=== PATIENT | male | born 1935 | race Caucasian/White ===

== ENCOUNTER 2020-10-21 09:00 | Emergency (ER) | payer OTHER, SELFPAY ==
[2020-10-21 09:06] VITALS: BP 127/72; PULSE 86; O2SAT 96
[2020-10-21 09:08] VITALS: BP 149/81; PULSE 70; RESP 18; TEMP 36.6; O2SAT 100; BMI 37.5
--- NOTE | 2020-10-21 09:16 | ED_ITS ---
HPI - Skin/Abscess/Foreign Bdy General Chief complaint: Skin/Abscess/Foreign Body Stated complaint: infected skin tag Time Seen by Provider: 10/21/20 09:16 Source: patient, family and EMS Mode of arrival: EMS Limitations: other (poor historian ) History of Present Illness complaint: lesion Onset (ago): year(s) Tetanus up to date: yes Location: neck (right ) Severity: moderate Relieving factors: none Exacerbating factors: none Context: other (hx of chronic skin tag that he refused surgery for his son used to manage it until he this week so no one was able to care for it, his family noticed it was getting red and told him to get it checked out) Associated symptoms: denies other symptoms Treatments prior to arrival: none Related Data Home Medications Medication Instructions Recorded Confirmed buspirone 5 mg PO BID 10/21/20 10/21/20 clonidine HCl 0.4 mg PO BID 10/21/20 10/21/20 finasteride 5 mg PO DAILY 10/21/20 10/21/20 furosemide 40 mg PO DAILY 10/21/20 10/21/20 lisinopril 40 mg tablet 40 mg PO DAILY 10/21/20 10/21/20 metoprolol tartrate 25 mg PO BID 10/21/20 10/21/20 sertraline 50 mg tablet 25 mg PO 2XW 10/21/20 10/21/20 simvastatin 10 mg PO DAILY 10/21/20 10/21/20 terazosin 1 mg PO DAILY 10/21/20 10/21/20 Allergies Allergy/AdvReac Type Severity Reaction Status Date / Time terazosin Allergy Unknown Unknown Verified 10/21/20 09:14 Review of Systems Review of Systems: Constitutional : No Fever, No Chills ENT/Mouth : No sore throat, No Rhinorrhea Eyes: No Eye Pain, No Swelling, No Redness Cardiovascular : No Chest Pain, No SOB Respiratory : No Cough, No Sputum Gastrointestinal : No Nausea, No Vomiting, No Diarrhea, No abdominal Pain Genitourinary : No Dysuria, No Hematuria Musculoskeletal : No joint pain, No Myalgias, No Joint Swelling Skin : pos Skin Lesions, positive skin rash Neuro : No Weakness, No Numbness, No Headache Psych : No Anxiety, No Depression Heme/Lymph: No Bruising, No Bleeding,No Lymphadenopathy Endocrine : No Polyuria, No Polydipsia All other systems reviewed and are negative PMFSH Past Medical History Attestation statement: The following information was validated with the patient. Medical History BPH (benign prostatic hyperplasia) HLD (hyperlipidemia) HTN (hypertension) Social History Social History (Updated 10/21/20 @ 09:40 by Negra Carmona DO) Patient Tobacco Use Status: Tobacco use Unknown Advance Directives: Yes Advance Directives Information Provided: No Advance Directives on File: No Physical Exam Vital Signs: Vital Signs: Last Vital Signs Temp 97.8 F 10/21/20 15:34 Pulse 64 10/21/20 15:34 Resp 14 10/21/20 15:34 BP 103/48 L 10/21/20 15:34 Pulse Ox 100 10/21/20 13:36 Body Mass Index 37.5 Appearance: Alert. Oriented X3. No acute distress. Eyes: Pupils equal, round and reactive to light. ENT: Pharynx normal. Neck: large 10c fungated appearing skin tag R lateral neck - surrounding beefy red area with satellite lesions and odor present no abscess, erythema extends onto clavicle and trapezius area CVS: Normal heart rate and rhythm. Pulses normal. Respiratory: No respiratory distress. Breath sounds normal. Abdomen: Soft and nontender. Skin: Skin warm and dry. Normal skin color. Normal skin turgor. Extremities: No lower extremity edema. No calf ttp Neuro: Oriented X 3. No motor deficit. No sensory deficit. Course Course Course Narrative: family now states they cannot care for him PT/CM issue no fevers, neg lactic acidosis - start on oral medications and top ical likely placement Patient placed in physician observation at 404pm. The indication for observa tion is that the patient needs more time for PT/CM for placement. At this time the patient is well developed well nourished, lungs clear, CV RRR, abd nontender, neuro is intact. MDM - Skin/Abscess/Foreign Bdy MDM Narrative Medical decision making narrative: 85 yo male with HTN, HLD, BPH here with ch ronic skin tag that he has refused treatment for his son used to wash it nightly for him and apply neosporin. His son unfortunately just this past week and the tag area appears cellulitic and with yeast infection noted - topical anti fungals and labs/zosyn he has no systemic symptoms anticipate DC home with topical and oral treatments along with CM consult for [facility] Lab Data Result diagrams: 10/21/20 10:04 10/21/20 10:04 Labs: Lab Results 10/21/20 10/21/20 10/21/20 Range/Units 10:04 10:04 10:04 WBC 13.7 H (4.8-10.8) X10*3/uL RBC 4.76 (4.60-5.80) X10*6/uL Hgb 14.9 (14.0-18.0) g/dl Hct 43.9 (42-52) % MCV 92.2 (80-98) fL MCH 31.3 (27.0-33.0) pg MCHC 33.9 (31.0-36.0) g/dl RDW 13.4 (11.0-16.0) % Plt Count 341 (160-400) X10*3/uL MPV 9.1 L (9.4-12.4) fL Immature Gran % (Auto) 0.3 (0.0-0.4) % Neut % (Auto) 78.2 H (45-73) % Lymph % (Auto) 13.8 L (20-40) % Wilkin % (Auto) 5.5 (2-11) % Eos % (Auto) 1.7 (0-4) % Baso % (Auto) 0.5 (0-2) % Lymph # (Auto) 1.9 (1.2-4.9) X10*3/uL Wilkin # (Auto) 0.8 (0.1-1.2) X10*3/uL Eos # (Auto) 0.2 (0.0-0.4) X10*3/uL Baso # (Auto) 0.1 (0.0-0.2) X10*3/uL Abs Immat Gran (auto) 0.04 H (0.00-0.03) X10*3/uL Absolute Neuts (auto) 10.7 H (2.0-8.3) X10*3/uL Absolute Nucleated RBC 0.000 (0.0-0.012) X10*3/uL Nucleated RBC % (auto) 0.0 (0.0-0.2) /100WBC Sodium 134 L (135-145) mmol/L Potassium 4.2 (3.3-5.1) mmol/L Chloride 94 L (96-108) mmol/L Carbon Dioxide 31 H (22-29) mmol/L Anion Gap 13 (12-20) BUN 14 (9-16) mg/dL Creatinine 1.07 (0.5-1.4) mg/dL Estim Creat Clear Calc 77.7 Estimated GFR > 60 Random Glucose 95 (60-115) mg/dL Lactic Acid 1.5 (0.5-2.0) mmol/L Calcium 9.4 (8.4-10.2) mg/dL COVID-19 (SHAMAR) (Negative) COVID-19 Clin Com 10/21/20 Range/Units 10:04 WBC (4.8-10.8) X10*3/uL RBC (4.60-5.80) X10*6/uL Hgb (14.0-18.0) g/dl Hct (42-52) % MCV (80-98) fL MCH (27.0-33.0) pg MCHC (31.0-36.0) g/dl RDW (11.0-16.0) % Plt Count (160-400) X10*3/uL MPV (9.4-12.4) fL Immature Gran % (Auto) (0.0-0.4) % Neut % (Auto) (45-73) % Lymph % (Auto) (20-40) % Wilkin % (Auto) (2-11) % Eos % (Auto) (0-4) % Baso % (Auto) (0-2) % Lymph # (Auto) (1.2-4.9) X10*3/uL Wilkin # (Auto) (0.1-1.2) X10*3/uL Eos # (Auto) (0.0-0.4) X10*3/uL Baso # (Auto) (0.0-0.2) X10*3/uL Abs Immat Gran (auto) (0.00-0.03) X10*3/uL Absolute Neuts (auto) (2.0-8.3) X10*3/uL Absolute Nucleated RBC (0.0-0.012) X10*3/uL Nucleated RBC % (auto) (0.0-0.2) /100WBC Sodium (135-145) mmol/L Potassium (3.3-5.1) mmol/L Chloride (96-108) mmol/L Carbon Dioxide (22-29) mmol/L Anion Gap (12-20) BUN (9-16) mg/dL Creatinine (0.5-1.4) mg/dL Estim Creat Clear Calc Estimated GFR Random Glucose (60-115) mg/dL Lactic Acid (0.5-2.0) mmol/L Calcium (8.4-10.2) mg/dL COVID-19 (SHAMAR) Negative (Negative) COVID-19 Clin Com See Note Discharge Plan Discharge Clinical Impression: Cellulitis, Skin yeast infection Prescriptions: No [facility] lisinopril 40 mg Tablet 40 mg PO DAILY RF: 0 sertraline 50 mg Tablet 25 mg PO 2XW RF: 0 clonidine HCl 0.2 mg 0.4 mg PO BID RF: 0 terazosin 1 mg 1 mg PO DAILY RF: 0 buspirone 5 mg 5 mg PO BID RF: 0 finasteride 5 mg 5 mg PO DAILY RF: 0 furosemide 40 mg 40 mg PO DAILY RF: 0 metoprolol tartrate 25 mg 25 mg PO BID RF: 0 simvastatin 10 mg 10 mg PO DAILY RF: 0
[2020-10-21 10:10] LABS: MANUAL DIFF FLAG NO
[2020-10-21 10:11] LABS: Basophils Absolute Auto 0.1 X10*3/uL (0.0-0.2); Basophils Percent Auto 0.5 % (0-2); Eosinophils Absolute Auto 0.2 X10*3/uL (0.0-0.4); Eosinophils Percent Auto 1.7 % (0-4); Hematocrit 43.9 % (42-52); Hemoglobin 14.9 g/dl (14.0-18.0); Imm Gran Abs Auto 0.04 X10*3/uL (0.00-0.03); Imm Gran Pct Auto 0.3 % (0.0-0.4); Lymphocytes Absolute Auto 1.9 X10*3/uL (1.2-4.9); Lymphocytes Percent Auto 13.8 % (20-40); Mean Corpuscular HGB Conc 33.9 g/dl (31.0-36.0); Mean Corpuscular Hemoglobin 31.3 pg (27.0-33.0); Mean Corpuscular Volume 92.2 fL (80-98); Mean Platelet Volume 9.1 fL (9.4-12.4); Monocytes Absolute Auto 0.8 X10*3/uL (0.1-1.2); Monocytes Percent Auto 5.5 % (2-11); Neutrophils Absolute Auto 10.7 X10*3/uL (2.0-8.3); Neutrophils Percent Auto 78.2 % (45-73); Platelet Count 341 X10*3/uL (160-400); Red Blood Count 4.76 X10*6/uL (4.60-5.80); Red Cell Distribution Width 13.4 % (11.0-16.0); White Blood Count 13.7 X10*3/uL (4.8-10.8)
[2020-10-21] MEDS: Piperacillin Sodium/Tazobactam 3.375 GM in 0.9 % Sodium Chloride 50 ML IV (10:15)
[2020-10-21 10:25] LABS: COVID-19 Test Negative (Negative); IDNOW Serial# 55D5AD1C; Lactic Acid 1.5 mmol/L (0.5-2.0)
[2020-10-21 10:28] LABS: Anion Gap 13 (12-20); Blood Urea Nitrogen 14 mg/dL (9-16); Calcium 9.4 mg/dL (8.4-10.2); Carbon Dioxide 31 mmol/L (22-29); Chloride 94 mmol/L (96-108); Creatinine Clr Calc Pharmacy 77.7; Estimated Glomerular Filt Rate > 60; Glucose Random 95 mg/dL (60-115); Potassium 4.2 mmol/L (3.3-5.1); Sodium 134 mmol/L (135-145)
[2020-10-21] MEDS: Clotrimazole 1 % Cream 15 GM TUBE 1 APPL TOPICAL ×2 (13:31→13:55)
[2020-10-21 13:36] VITALS: BP 149/81; PULSE 70; O2SAT 100
[2020-10-21] MEDS: cephALEXin 500 MG CAPSULE PO ×2 (13:55→23:40)
--- NOTE | 2020-10-21 14:10 | MHC.CM.ED ---
Received case management consult from Dr Carmona. Patient came to the ER with daughters due to an infected skin tag. Patient's son was his primary caregiver. He in [facility] ICU a couple of weeks ago. Patient's daughter has been trying to care for patient. However, daughter Ree is no longer able to do this. Patient did received a Covid vaccine. Ree is unsure of when or which brand. Patient has VA benefits. However, the VA is closed due to Day. Unable to verify VA benefits as this time. List of facilities contracted with the VA provided to Ree via email. Continue to monitor for d/c needs.
[2020-10-21 15:34] VITALS: BP 103/48; PULSE 64; RESP 14; TEMP 36.6
--- NOTE | 2020-10-21 15:42 | MHC.CM.ED ---
Rehab choices per Ree: 1)[facility] [address] 2) [facility] 3)[facility] 4)[facility]. Referrals made via [employer]. Continue to monitor for d/c needs.
--- NOTE | 2020-10-21 19:56 | PC.NURSE ---
pt noted to have removed PIV, asking repeatedly to go home, attempting to get OOB w/o assistance. moved to hospital bed for comfort, transferred to room with increased visibility for safety
[2020-10-21 20:44] VITALS: BP 140/85; PULSE 74; RESP 16; TEMP 36.4; O2SAT 96
[2020-10-21] MEDS: Melatonin 3 MG TABLET 6 MG PO (23:40)
[2020-10-21] MEDS: busPIRone HCl 5 MG TABLET PO (23:40)
[2020-10-21] MEDS: Metoprolol Tartrate 25 MG TABLET PO (23:40)
[2020-10-21] MEDS: cloNIDine HCL 0.2 MG TABLET 0.4 MG PO (23:41)
[2020-10-22] VITALS (10 sets, daily range): BP systolic 101–128; BP diastolic 48–79; PULSE 53–73; RESP 15–18; TEMP 36.4–36.6; O2SAT 96–99
[2020-10-22] MEDS: lisinopriL 40 MG TABLET PO (09:01)
[2020-10-22] MEDS: Doxazosin Mesylate 1 MG TABLET PO (09:01)
[2020-10-22] MEDS: cephALEXin 500 MG CAPSULE PO ×3 (09:01→21:58)
[2020-10-22] MEDS: Atorvastatin Calcium 10 MG TABLET PO (09:01)
[2020-10-22] MEDS: Furosemide 40 MG TABLET PO (09:01)
[2020-10-22] MEDS: busPIRone HCl 5 MG TABLET PO ×2 (09:02→21:58)
[2020-10-22] MEDS: Metoprolol Tartrate 25 MG TABLET PO ×2 (09:02→21:57)
[2020-10-22] MEDS: cloNIDine HCL 0.2 MG TABLET 0.4 MG PO ×2 (09:02→21:57)
[2020-10-22] MEDS: Finasteride 5 MG TABLET PO (09:03)
--- NOTE | 2020-10-22 10:12 | MHC.CM.ED ---
Patient remains in ER. Waiting to hear from VA about service connection. Continue to monitor for d/c needs.
--- NOTE | 2020-10-22 10:28 | PC.NURSE ---
PT IS CURRENTLY ASLEEP RESPIRATIONS EVEN AND UNLABORED, vs stable unable to locate the pt's cream to apply to the neck area
--- NOTE | 2020-10-22 10:38 | PC.NURSE ---
called pharmacy in regards to the cream they will send another tube up
--- NOTE | 2020-10-22 13:14 | PC.NURSE ---
PT IS CURRENTLY EATING LUNCH, CONTINUOS TO AWAIT SNIFF PLACMENT
--- NOTE | 2020-10-22 13:52 | MHC.CM.ED ---
Addendum entered by Lily Lozdaa 10/22/20 13:55: Patient received 2 Moderna Covid vaccines through the [facility]. Original Note: Patient is not VA service connected. However, patient has [facility] detention options. List of facility choices provided to daughterRee via email. Referral already broadcasted in [employer]. Continue to monitor for d/c needs.
[2020-10-22] MEDS: Clotrimazole 1 % Cream 15 GM TUBE 1 APPL TOPICAL ×2 (14:05→22:21)
[2020-10-23] VITALS (11 sets, daily range): BP systolic 118–132; BP diastolic 59–77; PULSE 16–94; RESP 15–18; TEMP -7.7–36.8; O2SAT 97–99
[2020-10-23] MEDS: Finasteride 5 MG TABLET PO (09:16)
[2020-10-23] MEDS: Furosemide 40 MG TABLET PO (09:17)
[2020-10-23] MEDS: Doxazosin Mesylate 1 MG TABLET PO (09:17)
[2020-10-23] MEDS: Atorvastatin Calcium 10 MG TABLET PO (09:17)
[2020-10-23] MEDS: cephALEXin 500 MG CAPSULE PO ×3 (09:19→20:30)
[2020-10-23] MEDS: lisinopriL 40 MG TABLET PO (09:19)
[2020-10-23] MEDS: cloNIDine HCL 0.2 MG TABLET 0.4 MG PO ×2 (09:20→20:28)
[2020-10-23] MEDS: Metoprolol Tartrate 25 MG TABLET PO ×2 (09:20→20:29)
[2020-10-23] MEDS: busPIRone HCl 5 MG TABLET PO ×2 (09:20→20:30)
[2020-10-23] MEDS: Clotrimazole 1 % Cream 15 GM TUBE 1 APPL TOPICAL ×2 (09:22→20:47)
--- NOTE | 2020-10-23 09:56 | PC.NURSE ---
Pt resting in bed comfortably. BP stable. Pt medicated with morning meds.
--- NOTE | 2020-10-23 11:46 | MHC.CM.ED ---
Patient remains in ER. [facility], [facility] and [facility] are able to offer a bed today. T/W attempted to reach daughter/HCP Ree via telephone at [phone] multiple times. . No one picked up. There is no option to leave a voicemail [facility] been asked to obtain insurance auth. Continue to monitor for d/c needs
--- NOTE | 2020-10-23 15:31 | PC.NURSE ---
Pt resting comfortably in bed. Daughter at bedside.
[2020-10-23] MEDS: QUEtiapine Fumarate 50 MG TABLET PO (19:19)
--- NOTE | 2020-10-23 19:19 | PC.NURSE ---
Pt becoming confused with a history of AMS/sundowning at home per children. He was throwing blood culture bottles out of his room and getting very agitated. He does not typically take anything for this at home. Pt took po seroquel willingly.
--- NOTE | 2020-10-23 20:44 | PC.NURSE ---
Patient is unable to change positions from sitting to standing. Patient needed assistance by 3 staff members to get him into the bed. Case Management aware and states patient has placement tomorrow.
--- NOTE | 2020-10-23 21:26 | PC.NURSE ---
clonidine reassessments not done per report
--- NOTE | 2020-10-24 00:23 | PC.NURSE ---
incontinent care was done by this pct ,bedding was change and patent reposition on left side
[2020-10-24 06:06] VITALS: BP 148/95; PULSE 76; RESP 16; TEMP 36.5; O2SAT 99
--- NOTE | 2020-10-24 09:47 | MHC.CM.ED ---
Patient remains in ER. Waiting for [facility] to obtain insurance auth. Continue to monitor for d/c needs.
--- NOTE | 2020-10-24 12:41 | MHC.CM.ED ---
Insurance auth has been obtained by [facility]. Patient can leave at 2pm. [facility] booked. Med nec with chart. Patient, daughter Nancy Keenan RN and Dr Carmona aware. Continue to monitor for d/c needs.
[2020-10-24 12:51] VITALS: BP 148/95; PULSE 75; PULSE 76
[2020-10-24] MEDS: lisinopriL 40 MG TABLET PO (12:51)
[2020-10-24] MEDS: cephALEXin 500 MG CAPSULE PO (12:51)
[2020-10-24] MEDS: cloNIDine HCL 0.2 MG TABLET 0.4 MG PO (12:51)
[2020-10-24 12:52] VITALS: BP 148/95; PULSE 76
[2020-10-24] MEDS: Atorvastatin Calcium 10 MG TABLET PO (12:52)
[2020-10-24] MEDS: Metoprolol Tartrate 25 MG TABLET PO (12:52)
[2020-10-24] MEDS: Finasteride 5 MG TABLET PO (12:52)
[2020-10-24] MEDS: Furosemide 40 MG TABLET PO (12:52)
[2020-10-24 12:53] VITALS: BP 148/95; PULSE 76
[2020-10-24] MEDS: busPIRone HCl 5 MG TABLET PO (12:53)
[2020-10-24] MEDS: Doxazosin Mesylate 1 MG TABLET PO (12:53)
--- NOTE | 2020-10-24 13:10 | PC.NURSE ---
attempt made to call report to [facility] unit [phone] and no answer.
== END 2020-10-24 14:40 | disposition skilled nursing facility (03) ==
PROVIDERS: Emergency Provider Emergency Medicine; PCP Physician Assistant
DX: L03.221 Cellulitis of neck (principal); B37.2 Candidiasis of skin and nail; Z20.822 Contact with and (suspected) exposure to COVID-19; I10 Essential (primary) hypertension; E78.5 Hyperlipidemia, unspecified; Z79.899 Other long term (current) drug therapy; Z79.02 Long term (current) use of antithrombotics/antiplatelets
CPT/HCPCS: 36415; 80048; 83605; 85025; 87040; 87635; 96365; 97162; 99284; 99285; J2543

== ENCOUNTER 2021-06-12 05:35 | Outpatient (REF) | payer MEDICARE, MEDICAID, SELFPAY ==
[2021-06-12 07:47] LABS: MANUAL DIFF FLAG NO
[2021-06-12 07:52] LABS: Basophils Absolute Auto 0.1 X10*3/uL (0.0-0.2); Basophils Percent Auto 0.6 % (0-2); Eosinophils Absolute Auto 0.6 X10*3/uL (0.0-0.4); Eosinophils Percent Auto 5.7 % (0-4); Hemoglobin 14.3 g/dl (14.0-18.0); Imm Gran Abs Auto 0.05 X10*3/uL (0.00-0.03); Imm Gran Pct Auto 0.5 % (0.0-0.4); Lymphocytes Percent Auto 18.7 % (20-40); Mean Corpuscular HGB Conc 33.3 g/dl (31.0-36.0); Mean Corpuscular Hemoglobin 30.1 pg (27.0-33.0); Mean Corpuscular Volume 90.5 fL (80.0-98.0); Monocytes Percent Auto 9.5 % (2-11); Neutrophils Absolute Auto 6.9 x10*3/uL (2.0-8.3); Platelet Count 289 X10*3/uL (160-400); Red Blood Count 4.75 X10*6/uL (4.60-5.80); Red Cell Distribution Width 14.2 % (11.0-16.0); White Blood Count 10.6 X10*3/uL (4.8-10.8)
[2021-06-12 08:12] LABS: Alanine Aminotransferase 11 U/L (0-40); Albumin Level 3.5 g/dL (3.5-5.0); Alkaline Phosphatase 83 U/L (39-117); Anion Gap 12 (12-20); Aspartate Amino Transferase 11 U/L (5-37); Bilirubin Total 0.9 mg/dL (0.0-1.0); Blood Urea Nitrogen 19 mg/dL (9-16); Calcium 9.3 mg/dL (8.4-10.2); Carbon Dioxide 27 mmol/L (22-29); Chloride 102 mmol/L (96-108); Estimated Glomerular Filt Rate > 60; Glucose Fasting 102 mg/dL (60-99); Potassium 4.3 mmol/L (3.3-5.1); Sodium 137 mmol/L (135-145); Total Protein 6.7 g/dL (6.5-8.0)
[2021-06-15 00:06] LABS: TS Negative Control Passed; TS Panel A 0; TS Panel B 0; TS Positive Control Passed; TSpotTB Negative (Negative)
== END 2021-06-12 05:36 | disposition home or self-care (01) ==
LOC: HO.HSH2W 05:35
PROVIDERS: Visit Provider Internal Medicine Interventional Cardiology
DX: F03.90 Unspecified dementia, unspecified severity, without behavioral disturbance, psychotic disturbance, mood disturbance, and anxiety (principal); I10 Essential (primary) hypertension
CPT/HCPCS: 36415; 80053; 85025; 86481

== ENCOUNTER 2021-06-24 05:39 | Outpatient (REF) | payer MEDICARE, MEDICAID, SELFPAY ==
[2021-06-24 08:33] LABS: Thyroid Stimulating Hormone 2.19 uIU/mL (0.32-4.0)
[2021-06-24 08:45] LABS: Vitamin B12 218 pg/mL (200-900)
[2021-06-24 15:09] LABS: Folate 3.9 ng/mL (> or = 4.0)
[2021-07-01 01:11] LABS: Methylmalonic Acid 205 nmol/L (87-318)
== END 2021-06-24 05:40 | disposition home or self-care (01) ==
LOC: HO.HSH2W 05:39
PROVIDERS: Visit Provider Internal Medicine
DX: F03.90 Unspecified dementia, unspecified severity, without behavioral disturbance, psychotic disturbance, mood disturbance, and anxiety (principal); E53.8 Deficiency of other specified B group vitamins
CPT/HCPCS: 36415; 82607; 82746; 83921; 84443

== ENCOUNTER 2021-06-25 06:29 | Outpatient (REF) | payer MEDICARE, MEDICAID, SELFPAY ==
[2021-06-27 16:32] LABS: Homocysteine 19.9 umol/L (<11.4)
== END 2021-06-25 06:30 | disposition home or self-care (01) ==
LOC: HO.HSH2W 06:29
PROVIDERS: Visit Provider Internal Medicine
DX: E53.8 Deficiency of other specified B group vitamins (principal)
CPT/HCPCS: 36415; 83090

== ENCOUNTER 2021-06-26 05:54 | Outpatient (REF) | payer MEDICARE, MEDICAID, SELFPAY ==
[2021-06-26 08:26] LABS: Cholesterol 168 mg/dL; HDL Cholesterol 32 mg/dL; LDL Cholesterol Calculated 117 mg/dl; Triglycerides 96 mg/dL
[2021-06-26 08:37] LABS: Thyroid Stimulating Hormone 2.36 uIU/mL (0.32-4.0)
== END 2021-06-26 05:55 | disposition home or self-care (01) ==
LOC: HO.HSH2W 05:54
PROVIDERS: Visit Provider Internal Medicine
DX: I73.9 Peripheral vascular disease, unspecified (principal)
CPT/HCPCS: 36415; 80061; 84443

== ENCOUNTER 2021-08-01 07:04 | Outpatient (REF) | payer MEDICARE, MEDICAID, SELFPAY ==
[2021-08-01 07:55] LABS: Alanine Aminotransferase 12 U/L (0-40); Albumin Level 3.4 g/dL (3.5-5.0); Alkaline Phosphatase 91 U/L (39-117); Anion Gap 9 (12-20); Aspartate Amino Transferase 13 U/L (5-37); Bilirubin Total 0.6 mg/dL (0.0-1.0); Blood Urea Nitrogen 19 mg/dL (9-16); Calcium 8.8 mg/dL (8.4-10.2); Carbon Dioxide 28 mmol/L (22-29); Chloride 102 mmol/L (96-108); Estimated Glomerular Filt Rate > 60; Glucose Fasting 100 mg/dL (60-99); Potassium 4.1 mmol/L (3.3-5.1); Sodium 135 mmol/L (135-145); Total Protein 6.5 g/dL (6.5-8.0)
== END 2021-08-01 07:05 | disposition home or self-care (01) ==
LOC: HO.HSH2W 07:04
PROVIDERS: Visit Provider Internal Medicine
DX: R60.0 Localized edema (principal); I48.20 Chronic atrial fibrillation, unspecified; I10 Essential (primary) hypertension
CPT/HCPCS: 36415; 80053

== ENCOUNTER 2021-09-08 07:28 | Outpatient (REF) | payer MEDICARE, MEDICAID, SELFPAY ==
[2021-09-08 08:32] LABS: Anion Gap 11 (12-20); Blood Urea Nitrogen 21 mg/dL (9-16); Calcium 8.9 mg/dL (8.4-10.2); Carbon Dioxide 29 mmol/L (22-29); Chloride 103 mmol/L (96-108); Estimated Glomerular Filt Rate > 60; Glucose Fasting 103 mg/dL (60-99); Potassium 4.6 mmol/L (3.3-5.1); Sodium 138 mmol/L (135-145)
== END 2021-09-08 07:29 | disposition home or self-care (01) ==
LOC: HO.HSH2W 07:28
PROVIDERS: Visit Provider Internal Medicine
DX: I10 Essential (primary) hypertension (principal)
CPT/HCPCS: 36415; 80048

== ENCOUNTER 2021-09-19 12:24 | Outpatient (REF) | payer MEDICARE, MEDICAID, SELFPAY ==
[2021-09-19 12:42] LABS: MANUAL DIFF FLAG NO
[2021-09-19 12:46] LABS: Basophils Absolute Auto 0.1 X10*3/uL (0.0-0.2); Basophils Percent Auto 0.8 % (0-2); Eosinophils Absolute Auto 0.5 X10*3/uL (0.0-0.4); Eosinophils Percent Auto 5.7 % (0-4); Hematocrit 40.7 % (42.0-52.0); Hemoglobin 13.3 g/dl (14.0-18.0); Imm Gran Abs Auto 0.02 X10*3/uL (0.00-0.03); Imm Gran Pct Auto 0.2 % (0.0-0.4); Lymphocytes Absolute Auto 2.1 X10*3/uL (1.2-4.9); Lymphocytes Percent Auto 25.3 % (20-40); Mean Corpuscular HGB Conc 32.7 g/dl (31.0-36.0); Mean Corpuscular Hemoglobin 29.4 pg (27.0-33.0); Mean Platelet Volume 9.6 fL (9.4-12.4); Monocytes Absolute Auto 0.7 X10*3/uL (0.1-1.2); Monocytes Percent Auto 8.2 % (2-11); Neutrophils Percent Auto 59.8 % (45-73); Platelet Count 251 X10*3/uL (160-400); Red Blood Count 4.52 X10*6/uL (4.60-5.80); Red Cell Distribution Width 13.3 % (11.0-16.0); White Blood Count 8.4 X10*3/uL (4.8-10.8)
[2021-09-19 13:02] LABS: Alanine Aminotransferase 13 U/L (0-40); Albumin Level 3.7 g/dL (3.5-5.0); Alkaline Phosphatase 88 U/L (39-117); Anion Gap 13 (12-20); Aspartate Amino Transferase 15 U/L (5-37); Bilirubin Total 0.8 mg/dL (0.0-1.0); Blood Urea Nitrogen 25 mg/dL (9-16); C Reactive Protein 1.24 mg/dL (< or = 0.50); Calcium 8.8 mg/dL (8.4-10.2); Carbon Dioxide 28 mmol/L (22-29); Chloride 102 mmol/L (96-108); Estimated Glomerular Filt Rate > 60; Glucose Random 110 mg/dL (60-115); Potassium 4.5 mmol/L (3.3-5.1); Sodium 138 mmol/L (135-145); Total Protein 7.3 g/dL (6.5-8.0)
[2021-09-19 13:25] LABS: Erythrocyte Sedimentation Rate 7 MM/HR (0-15)
== END 2021-09-19 12:25 | disposition home or self-care (01) ==
LOC: HO.HSH2E 12:24
PROVIDERS: Visit Provider Internal Medicine
DX: L03.90 Cellulitis, unspecified (principal); I10 Essential (primary) hypertension; F03.90 Unspecified dementia, unspecified severity, without behavioral disturbance, psychotic disturbance, mood disturbance, and anxiety
CPT/HCPCS: 36415; 80053; 85025; 85652; 86140

== ENCOUNTER 2022-04-17 06:23 | Outpatient (REF) | payer MEDICARE, MEDICAID, SELFPAY ==
--- NOTE | ~2022-04-17 | XR_ITS ---
EXAMINATION: XR SHOULDER, LEFT CLINICAL INFORMATION: M25.512 - Pain in left shoulder COMPARISON: Chest radiographs 08/12/2018, 05/07/2018 TECHNIQUE: Left shoulder is imaged in 3 views. FINDINGS: There are prominent osteoarthritic changes left glenohumeral joint with marked joint narrowing and mild subchondral sclerosis with osteophyte inferomedial humeral head. There is mild spurring from the greater tuberosity and punctate calcific tendinosis in region of distal rotator cuff. The acromioclavicular alignment is normal. There is some soft tissue mineralization superior acromioclavicular capsule and likely involving the superior capsular labral tissues. XR/XR shoulder LT min 2V IMPRESSION: -Prominent osteoarthritic changes left glenohumeral joint. -Calcific tendinosis in region of distal rotator cuff. -Benign mineralization superior labral capsular tissues and superior AC joint capsule.
== END 2022-04-17 06:24 | disposition home or self-care (01) ==
LOC: HO.HOSX 06:23
PROVIDERS: Visit Provider Physician Assistant
DX: M19.012 Primary osteoarthritis, left shoulder (principal)
CPT/HCPCS: 73030; 99202

== ENCOUNTER 2022-05-27 05:54 | Outpatient (REF) | payer MEDICARE, MEDICAID, SELFPAY ==
[2022-05-27 07:34] LABS: MANUAL DIFF FLAG NO
[2022-05-27 07:38] LABS: Basophils Absolute Auto 0.1 X10*3/uL (0.0-0.2); Basophils Percent Auto 0.8 % (0-2); Eosinophils Absolute Auto 0.7 X10*3/uL (0.0-0.4); Eosinophils Percent Auto 7.4 % (0-4); Hematocrit 38.9 % (42.0-52.0); Hemoglobin 12.9 g/dl (14.0-18.0); Imm Gran Abs Auto 0.03 X10*3/uL (0.00-0.03); Imm Gran Pct Auto 0.3 % (0.0-0.4); Lymphocytes Absolute Auto 2.7 X10*3/uL (1.2-4.9); Lymphocytes Percent Auto 27.5 % (20-40); Mean Corpuscular HGB Conc 33.2 g/dl (31.0-36.0); Mean Corpuscular Hemoglobin 30.6 pg (27.0-33.0); Mean Corpuscular Volume 92.2 fL (80.0-98.0); Mean Platelet Volume 9.6 fL (9.4-12.4); Monocytes Absolute Auto 0.8 X10*3/uL (0.1-1.2); Monocytes Percent Auto 8.7 % (2-11); Neutrophils Absolute Auto 5.3 x10*3/uL (2.0-8.3); Neutrophils Percent Auto 55.3 % (45-73); Platelet Count 267 X10*3/uL (160-400); Red Blood Count 4.22 X10*6/uL (4.60-5.80); Red Cell Distribution Width 14.1 % (11.0-16.0); White Blood Count 9.6 X10*3/uL (4.8-10.8)
[2022-05-27 07:43] LABS: Estimated Average Glucose 114 mg/dL; Hemoglobin A1c % 5.6 %
[2022-05-27 08:14] LABS: Alanine Aminotransferase 17 U/L (0-40); Albumin Level 3.5 g/dL (3.5-5.0); Alkaline Phosphatase 74 U/L (39-117); Anion Gap 8 (12-20); Aspartate Amino Transferase 14 U/L (5-37); Bilirubin Total 0.6 mg/dL (0.0-1.0); Blood Urea Nitrogen 24 mg/dL (9-16); Calcium 8.8 mg/dL (8.4-10.2); Carbon Dioxide 27 mmol/L (22-29); Chloride 108 mmol/L (96-108); Cholesterol 132 mg/dL; Estimated Glomerular Filt Rate > 60; Glucose Fasting 93 mg/dL (60-99); HDL Cholesterol 31 mg/dL; LDL Cholesterol Calculated 80 mg/dl; Potassium 4.2 mmol/L (3.3-5.1); Sodium 139 mmol/L (135-145); Total Protein 6.6 g/dL (6.5-8.0); Triglycerides 107 mg/dL
[2022-05-27 08:42] LABS: Folate 18.8 ng/mL (> or = 4.0); Vitamin B12 489 pg/mL (200-900)
== END 2022-05-27 05:55 | disposition home or self-care (01) ==
LOC: HO.HSH3W 05:54
PROVIDERS: Visit Provider Nurse Practitioner
DX: I10 Essential (primary) hypertension (principal); E78.5 Hyperlipidemia, unspecified; D64.9 Anemia, unspecified
CPT/HCPCS: 36415; 80053; 80061; 82607; 82746; 83036; 85025

== ENCOUNTER 2022-06-29 12:53 | Outpatient (REF) | payer MEDICARE, MEDICAID, SELFPAY ==
--- NOTE | ~2022-06-29 | FL_ITS ---
EXAMINATION: XR ARTHROGRAM SHOULDER, LEFT CLINICAL INFORMATION: Primary osteoarthritis left shoulder. COMPARISON: None available. TECHNIQUE: Following explaining fluoroscopy-guided left shoulder steroid injection procedure, benefits and risk, a written consent was obtained. Patient was placed supine on fluoroscopy table and an optimal site was selected along the distal left inferior glenohumeral joint space and marked on the skin. The marked area was cleaned and draped in usual sterile manner with 2% chlorhexidine solution. 1% lidocaine was injected puncture site. A 6 20-gauge spinal needle was then inserted from the skin intra-articular joint space and 1 to 2 mm nonionic contrast was injected. A single image was obtained for documentation. Subsequently 6 mL of 1% lidocaine and 80 mg/1 mL Depo-Medrol was injected as a 7 mL combination and needle withdrawn. Complete hemostasis achieved at puncture site. Sterile dressing applied postprocedure. Patient tolerated procedure extremely well. FINDINGS: On AP view of the left shoulder is severe loss of glenohumeral joint space with inferior joint spurring. There is contrast opacifying the joint space and subtalar coracoid bursa. Approximately 7 mL of combination of 1% lidocaine and Depo-Medrol was injected and needle withdrawn. FLUOROSCOPY TIME: 1.0 minutes DOSE AREA PRODUCT: 4.852 uGy-m2 (microgray-meter squared) FL/FL arthrogram shoulder LT IMPRESSION: 1. Successful fluoroscopic-guided left shoulder steroid injection. 2. Severe loss of glenohumeral joint space with inferior joint spurring.
== END 2022-06-29 12:54 | disposition home or self-care (01) ==
LOC: HO.XRAY 12:53
PROVIDERS: PCP Physician Assistant; Visit Provider Physician Assistant
DX: M19.012 Primary osteoarthritis, left shoulder (principal)
CPT/HCPCS: 23350; 73040

== ENCOUNTER 2022-10-07 08:59 | Outpatient (AMB) | payer MEDICARE, MEDICAID, SELFPAY ==
--- NOTE | 2022-10-07 09:15 | A.OFFVIS_ITS ---
Intake Intake Visit Reasons: BPH w lower urinary tract symptoms Intake Note: [facility] Patient is Present for BPH/History Of Recurrent Urinary Tract Infections Urology Medication: Finasteride, Terazosin Antibiotic Allergy: None Blood Thinner: Aspirin Cotton Chopper Required: No Allergies terazosin Allergy (Unknown, Verified 10/07/22 09:15) Unknown HPI HPI Comments History of Present Illness Details ePpe is a pleasant male. Resident of [facility]. He seen for the following urologic conditions - incontinence Incontinent of urine Control with diaper during the day They have used [place] catheter at night however there is inconsistency from nursing and catheter does fall off PVR 0 Bedside PVR performed today and remains low Recommend standardization of nursing protocol for application of [place] catheter Kit should contain benzoin for application Benzoin should not be applied to meatus or glans of penis. It is designed for application to regular skin. 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 Mother No problems noted. Social History Housing: Assisted Living Facility Housing Other:: [facility] Alcohol intake: current Alcohol intake frequency: former alcohol drinker Patient Tobacco Use Status: Tobacco use Unknown Review of Systems Const Denies chills and Denies fever(s) Card Reports no additional complaints and Denies syncope Resp Denies cough GI Denies abdominal pain and Denies heartburn Reports as per HPI and Denies change in libido Neuro Denies syncope Psych Denies change in libido Endo Denies change in libido Physical Exam Const General: cooperative, healthy appearing, comfortable and no acute distress Orientation/consciousness: patient oriented x3 HEENT Face and sinus: Yes normal facial exam Mouth: moist mucous membranes Neck Neck: Yes normal visual inspection, Yes full ROM and Yes trachea midline Chest Chest palpation & inspection: normal inspection of the chest Resp Effort & Inspection: normal respiratory effort, able to speak in complete sentences and no respiratory distress GI Inspection: Yes normal to inspection Back/Spine/Pelvis Cervical Spine: normal cervical lordosis Thoracic/Lumbar Spine: thoracic and lumbar spine normal to inspection Skin General skin exam: no rashes or lesions noted Neuro General: patient oriented x3, gait normal, tone normal and moves all extremities Extrem General: Yes normal to inspection and Yes capillary refill normal Assessment & Plan Assessment & Plan (1) Urinary incontinence: Code(s): R32 - Unspecified urinary incontinence Plan Standardized [place] catheter application using benzoin. Nurse teaching if required. Patient Instructions: Imaging studies, laboratory and physical exam results were discussed and reviewed in detail. No major barriers to patient understanding were identified. An opportunity to ask questions regarding the treatment plan was provided. All questions were answered. The patient expressed understanding and agreement with the above treatment plan. The patient is aware they should contact our office by phone for worsening of their current condition or the appearance of new urologic symptoms. Compliance is encouraged with any medications and followup testing that is ordered. It is a privilege to participate in the urologic care of your patient. If you have any questions or concerns regarding treatment for the above conditions, or other urologic issues, please do not hesitate to contact me. The office telephone contact is [phone]. This note is constructed using voice recognition software. While every effort has been made to ensure accuracy forest ranger technician errors may have been included. Yours sincerely, Dr Curt Gan MD, DINO [facility] - Urology Providers of Expert, Compassionate Care for the Genitourinary System Coding Level of Care Code 32889-Herx Fac initial, high Diagnoses Urinary incontinence R32
== END 2022-10-07 14:30 | disposition home or self-care (01) ==
LOC: HO.HUSV 08:59
PROVIDERS: PCP Physician Assistant; Visit Provider Urology
DX: R32 Unspecified urinary incontinence (principal)
CPT/HCPCS: 99306

== ENCOUNTER 2022-11-09 09:38 | Outpatient (AMB) | payer MEDICARE, MEDICAID, SELFPAY ==
--- NOTE | 2022-11-09 09:55 | A.OFFVIS_ITS ---
Intake Intake Visit Reasons: OV- LT Shoulder Pain last inj 04/17/22 Intake Note: Pepe an 87 year old male who presents today in a wheelchair for a follow up of left shoulder, last injection on 04/17/22. Patient reports injection provided relief for only a couple of days. He states his pain comes and goes that gets worse with certain movement of arm. Allergies terazosin Allergy (Unknown, Verified 11/09/22 10:15) Unknown HPI OV- LT Shoulder Pain last inj 04/17/22 HPI Details 87-year-old male who returns to the [facility] today in a wheelchair for a follow-up of left shoulder pain. He had his last injection on 04/17/22 which provided him relief for about 2 days. He states he has intermittent pain in his shoulder which is aggravated with ROM of arm. 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 Mother No problems noted. Social History Housing: Assisted Living Facility Housing Other:: [facility] Alcohol intake: current Alcohol intake frequency: former alcohol drinker Patient Tobacco Use Status: Tobacco use Unknown Review of Systems Const All systems reviewed & are unremarkable except as noted in HPI and below Physical Exam Const General: cooperative, healthy appearing, comfortable, no acute distress, well developed and alert Orientation/consciousness: patient oriented x3 HEENT Head: Yes normal to inspection, Yes normocephalic and Yes atraumatic Eyes General: appearance normal, both eyes and all related structures Resp Effort & Inspection: normal respiratory effort and able to speak in complete sentences Cardio Rate: regular rate Peripheral pulses: Peripheral pulses 2+ throughout GI Palpation (GI): Soft to palpation Skin Lesions: no lesions Rashes: no rashes Neuro General: patient oriented x3 Extrem Other: Left shoulder normal to inspection.No direct Tenderness over the bicipital groove or along the deltoid region of the shoulder. Forward flexion to 100, external rotation to 90. 5/5 RTC strength. Negative Hameed and cross body abduction. NVI. Office Procedures Joint Injection/Drain Joint Injection/Drain Primary Site: left shoulder Prep: site was prepped using aseptic technique, ethochloride spray was applied and injection warnings given Injected: 80 mg of, DepoMedrol, with 8 mL of, 1% plain lidocaine and in the subcromial space Approach Used: posterolateral Procedure: The patient tolerated the procedure well and there was some relief with the local anesthesia Coding 88603 - Glenohumeral/Tronchanteric Bursa/Intraarticular Procedure code (CPT) selection complete Results Reviewed Results Reviewed: 11/09/22 10:18 Lidocaine HCl 2 % MPF [Xylocaine 2 % MPF] 5 ml .ROUTE .STK-MED ONE methylPREDNISolone acetate [DEPO-MedroL] 80 mg .ROUTE .STK-MED ONE Assessment & Plan Assessment & Plan (1) Arthritis of glenohumeral joint: Code(s): M19.019 - Primary osteoarthritis, unspecified shoulder Plan We discussed options today which include steroid injection. They did consent to move forward with the left shoulder injection, which was tolerated well. I recommended rest, ice and elevation and OTC anti-inflammatories PRN for discomfort. If symptoms persist or worsens over the next 6-8 weeks, patient will contact the office, otherwise follow-up as needed. Patient Instructions: Scribed for Rashad Rodriguez PA-C, by Jean-Paul Syed medical pathologist, on 11/09/2022 at 10:15 AM MAYCO. Rashad Amaral PA-C, have personally reviewed and agree with the information entered by the scribe. Coding Level of Care Code Est Pt Level 3 (24956) Diagnoses Arthritis of glenohumeral joint M19.019 CPT Codes Coding - Joint 7: 58495 - Glenohumeral/Tronchanteric Bursa/Intraarticular ([id number])
== END 2022-11-09 10:36 | disposition home or self-care (01) ==
PROVIDERS: PCP Physician Assistant; Visit Provider Physician Assistant
DX: M19.012 Primary osteoarthritis, left shoulder (principal)
CPT/HCPCS: 20610; 99213

== ENCOUNTER → 2022-11-09 09:38 | Outpatient (BNVA) | payer MEDICARE, MEDICAID, SELFPAY | PROVIDERS: PCP Physician Assistant; Visit Provider Physician Assistant | DX: M19.012 Primary osteoarthritis, left shoulder (principal) | CPT/HCPCS: 20610; 99212; J1040 ==

== ENCOUNTER 2022-11-19 17:59 | Emergency (ER) | payer MEDICARE, MEDICAID, SELFPAY ==
[2022-11-19 18:14] VITALS: BP 103/51; BP 140/90; PULSE 53; PULSE 62; RESP 16; TEMP 36.6; O2SAT 96; O2SAT 98; BMI 36.4
[2022-11-19 18:16] VITALS: BP 105/52; RESP 14; O2SAT 97
--- NOTE | 2022-11-19 18:28 | PC.NURSE ---
This RN assumed care upon pt. arrival.
--- NOTE | 2022-11-19 18:54 | ED.GENADULT ---
HPI - General Adult General Chief complaint: General Medical Stated complaint: hematuria-snf Time Seen by Provider: 11/19/22 18:19 Source: patient Mode of arrival: EMS Limitations: no limitations History of Present Illness HPI narrative: Patient comes in the emergency room via ambulance from a senior living facility, according to EMS, the staff reported that the patient had hematuria. Patient states that he does not recall having hematuria but he states that he may have seen blood in the stool. Patient is not on blood thinners. Patient has no dysuria, abdominal pain or flank pain, denies history of hemorrhoids. At this time, patient states that he feels well. Related Data Home Medications Medication Instructions Recorded Confirmed lisinopril 40 mg tablet 40 mg PO DAILY 10/21/20 10/21/20 sertraline 50 mg tablet 25 mg PO 2XW 10/21/20 10/21/20 acetaminophen 325 mg tablet 650 mg PO BID PRN 04/17/22 aspirin 81 mg tablet,delayed 81 mg PO DAILY 04/17/22 release clonidine HCl 0.2 mg tablet 0.4 mg PO DAILY 04/17/22 docusate sodium 100 mg capsule 100 mg PO DAILY 04/17/22 folic acid 1 mg tablet 1 mg PO DAILY 04/17/22 polyethylene glycol 3350 17 gram 17 g PO .every other day 04/17/22 oral powder packet potassium chloride 20 mEq/15 mL 20 meq PO DAILY 04/17/22 oral liquid tamsulosin 0.4 mg capsule 0.4 mg PO DAILY 04/17/22 amlodipine 10 mg tablet 10 mg PO DAILY 09/22/22 amlodipine 5 mg tablet 10 mg PO DAILY 09/22/22 finasteride 5 mg tablet 5 mg PO DAILY 09/22/22 furosemide 40 mg tablet 40 mg PO Q OTHER DAY 09/22/22 lidocaine 5 % topical patch 1 patch topical DAILY shoulder pain 09/22/22 metoprolol tartrate 25 mg tablet 25 mg PO DAILY 09/22/22 simvastatin 20 mg tablet 20 mg PO BEDTIME 09/22/22 Previous Rx's Medication Instructions Recorded cefuroxime axetil 500 mg tablet 500 mg PO BID #14 tabs 11/19/22 Allergies Allergy/AdvReac Type Severity Reaction Status Date / Time terazosin Allergy Unknown Unknown Verified 11/09/22 10:15 Review of Systems Review of Systems: Constitutional : No Weight loss, No Fever, No Chills, No Night Sweats, No Fatigue, No Malaise ENT/Mouth : No Hearing loss, No Ear Pain, No Nasal Congestion, No Sinus Pain, No Hoarseness, No sore throat, No Rhinorrhea, No Swallowing Difficulty Eyes: No Eye Pain, No Swelling, No Redness, No Foreign Body, No Discharge, No Vision Changes Cardiovascular : No Chest Pain, No SOB, No Dyspnea on Exertion, No Orthopnea, No Edema, No Palpitations Respiratory : No Cough, No Sputum, No Wheezing, No Smoke Exposure, No Dyspnea Gastrointestinal : No Nausea, No Vomiting, No Diarrhea, No Constipation, No abdominal Pain, unsure if he has a blood in the stool Genitourinary : no irregular bleeding, No Dysuria, No Urinary Frequency, staff reports hematuria, patient denies hematuria No Urinary Incontinence, No Urgency, No Flank Pain, No Urinary Flow Changes, No Hesitancy Musculoskeletal : No joint pain, No Myalgias, No Joint Swelling Skin : No Skin Lesions, No rash Neuro : No Weakness, No Numbness, No Paresthesias, No Loss of Consciousness, No Dizziness, No Headache Psych : No Anxiety/Panic, No Depression, No SI/HI/AH/VH, No Social Issues, Heme/Lymph: No Bruising, No Bleeding,No Lymphadenopathy Endocrine : No Polyuria, No Polydipsia, No Temperature Intolerance [facility] Past Medical History Medical History Unspecified macular degeneration Primary osteoarthritis, left shoulder Pain in left shoulder Mild cognitive impairment of uncertain or unknown etiology Localized edema Edema, unspecified Feeling of incomplete bladder emptying Personal history of urinary (tract) infections Personal history of COVID-19 Squamous cell carcinoma of skin of scalp and neck Alcohol abuse, uncomplicated Bilateral primary osteoarthritis of knee Major depressive disorder, single episode, unspecified Dementia without behavioral disturbance Alzheimer's disease with late onset Chronic atrial fibrillation BPH (benign prostatic hyperplasia) HTN (hypertension) HLD (hyperlipidemia) Family History Family History Father No problems noted. Mother No problems noted. Social History Social History Housing: Assisted Living Facility Housing Other:: [facility] Unable to assess alcohol history related to: Unknown Alcohol intake: current Alcohol intake frequency: former alcohol drinker Patient Tobacco Use Status: Tobacco use Unknown Smoked in Last 30 Days: No Use of substances other than those prescribed or required for medical reasons: No Advance Directives: Yes Advance Directives on File: Yes Advance Directives Date on File: 10/21/20 Physical Exam ED Vital Signs: Vital Signs - 24 hr 11/19/22 18:14 11/19/22 18:16 11/19/22 21:30 Temperature 97.9 F 97.7 F Pulse Rate 62 69 Respiratory Rate 16 14 12 Blood Pressure 103/51 L 105/52 L 132/73 Pulse Oximetry 98 97 96 Oxygen Delivery Method Room Air Room Air Room Air BMI result Body Mass Index 36.4 Const Other: Appearance: Alert. Oriented X3. No acute distress. Eyes: Pupils equal, round and reactive to light. ENT: Pharynx normal. Neck: Normal inspection. Neck supple. No lymph nodes noted. No crepitus CVS: Normal heart rate and rhythm. Pulses normal. Normal S1 and S2 Respiratory: No respiratory distress. Breath sounds normal. No Wheezing. No rales Abdomen: Soft and nontender. No rigidity. No distention. Digital rectal exam shows brown stool Skin: Skin warm and dry. Normal skin color. Normal skin turgor. Extremities: No lower extremity edema. No Lacerations. No Rash Neuro: Oriented X 3. No motor deficit. No sensory deficit. Moving all extremities. No slurred speech. CN 2 through 12 grossly intact Psych: calm, cooperative, normal affect Course Course Course Narrative: -all of patient's labs pending Medications Administered Generic Name Dose Route Start Last Admin Trade Name Genna PRN Reason Stop Dose Admin Ceftriaxone Sodium 1 gm/ 50 mls @ 100 mls/hr 11/19/22 22:37 11/19/22 22:43 Sodium Chloride IV 11/19/22 23:06 100 mls/hr ONCE ONE Administration Medical Decision Making Medical Decision Making [facility] Narrative: -my interpretation of labs: White blood cell count 13.9, likely secondary to UTI, chemistry unremarkable. Urinalysis positive for UTI. -patient was given a dose of ceftriaxone IV in the emergency room, patient will continue p.o. medication Differential Diagnosis Differential Diagnoses: The differential diagnosis associated with the presentation includes (UTI, cystitis) Lab Data 11/19/22 18:49 11/19/22 18:49 Labs: Lab Results 11/19/22 11/19/22 11/19/22 Range/Units 18:49 19:08 19:09 WBC 13.9 H (4.8-10.8) X10*3/uL RBC 4.27 L (4.60-5.80) X10*6/uL Hgb 13.2 L (14.0-18.0) g/dl Hct 40.3 L (42.0-52.0) % MCV 94.4 (80.0-98.0) fL MCH 30.9 (27.0-33.0) pg MCHC 32.8 (31.0-36.0) g/dl RDW 14.1 (11.0-16.0) % Plt Count 336 D (160-400) X10*3/uL MPV 9.6 (9.4-12.4) fL Immature Gran % (Auto) 1.2 H (0.0-0.4) % Neut % (Auto) 70.1 (45-73) % Lymph % (Auto) 17.4 L (20-40) % [place] % (Auto) 8.1 (2-11) % Eos % (Auto) 2.5 (0-4) % Baso % (Auto) 0.7 (0-2) % Lymph # (Auto) 2.4 (1.2-4.9) X10*3/uL [place] # (Auto) 1.1 (0.1-1.2) X10*3/uL Eos # (Auto) 0.4 (0.0-0.4) X10*3/uL Baso # (Auto) 0.1 (0.0-0.2) X10*3/uL Abs Immat Gran (auto) 0.17 H (0.00-0.03) X10*3/uL Absolute Neuts (auto) 9.7 H (2.0-8.3) x10*3/uL Absolute Nucleated RBC 0.000 (0.0-0.012) X10*3/uL Nucleated RBC % (auto) 0.0 (0.0-0.2) /100WBC PT 12.8 (11.1-13.3) SEC INR 1.1 (0.9-1.1) APTT 25.3 L (26.0-36.4) SEC Sodium 136 (135-145) mmol/L Potassium 4.8 (3.3-5.1) mmol/L Chloride 102 (96-108) mmol/L Carbon Dioxide 22 (22-29) mmol/L Anion Gap 17 (12-20) BUN 35 H (9-16) mg/dL Creatinine 0.98 (0.5-1.4) mg/dL Estim Creat Clear Calc 74.2 Estimated GFR > 60 Random Glucose 111 (60-115) mg/dL Calcium 9.3 (8.4-10.2) mg/dL Total Bilirubin 0.4 (0.0-1.0) mg/dL Direct Bilirubin 0.1 (0.0-0.5) mg/dL AST 17 (5-37) U/L ALT 14 (0-40) U/L Alkaline Phosphatase 90 (39-117) U/L Total Protein 7.7 (6.5-8.0) g/dL Albumin 3.6 (3.5-5.0) g/dL Urine Color Urine Appearance Urine pH (5.0-9.0) Ur Specific [place] (1.005-1.025) Urine Protein (Neg-Trace) mg/dL Urine Glucose (UA) (Negative) mg/dL Urine Ketones (Negative) mg/dL Urine Blood (Negative) Urine Nitrite (Negative) Ur Leukocyte Esterase (Negative) Urine RBC (0-2) /HPF Urine WBC (0-5) /HPF Ur Squamous Epith Cells (0-2) /HPF Urine Bacteria (None Seen) Hyaline Casts (0-2) /LPF Stool Occult Blood NEGATIVE (NEGATIVE) Blood Type O Positive Antibody Screen NEGATIVE 11/19/22 Range/Units 21:29 WBC (4.8-10.8) X10*3/uL RBC (4.60-5.80) X10*6/uL Hgb (14.0-18.0) g/dl Hct (42.0-52.0) % MCV (80.0-98.0) fL MCH (27.0-33.0) pg MCHC (31.0-36.0) g/dl RDW (11.0-16.0) % Plt Count (160-400) X10*3/uL MPV (9.4-12.4) fL Immature Gran % (Auto) (0.0-0.4) % Neut % (Auto) (45-73) % Lymph % (Auto) (20-40) % [place] % (Auto) (2-11) % Eos % (Auto) (0-4) % Baso % (Auto) (0-2) % Lymph # (Auto) (1.2-4.9) X10*3/uL [place] # (Auto) (0.1-1.2) X10*3/uL Eos # (Auto) (0.0-0.4) X10*3/uL Baso # (Auto) (0.0-0.2) X10*3/uL Abs Immat Gran (auto) (0.00-0.03) X10*3/uL Absolute Neuts (auto) (2.0-8.3) x10*3/uL Absolute Nucleated RBC (0.0-0.012) X10*3/uL Nucleated RBC % (auto) (0.0-0.2) /100WBC PT (11.1-13.3) SEC INR (0.9-1.1) APTT (26.0-36.4) SEC Sodium (135-145) mmol/L Potassium (3.3-5.1) mmol/L Chloride (96-108) mmol/L Carbon Dioxide (22-29) mmol/L Anion Gap (12-20) BUN (9-16) mg/dL Creatinine (0.5-1.4) mg/dL Estim Creat Clear Calc Estimated GFR Random Glucose (60-115) mg/dL Calcium (8.4-10.2) mg/dL Total Bilirubin (0.0-1.0) mg/dL Direct Bilirubin (0.0-0.5) mg/dL AST (5-37) U/L ALT (0-40) U/L Alkaline Phosphatase (39-117) U/L Total Protein (6.5-8.0) g/dL Albumin (3.5-5.0) g/dL Urine Color Yellow Urine Appearance Turbid Urine pH 5.5 (5.0-9.0) Ur Specific [place] 1.010 (1.005-1.025) Urine Protein 30 (1+) H (Neg-Trace) mg/dL Urine Glucose (UA) Negative (Negative) mg/dL Urine Ketones Negative (Negative) mg/dL Urine Blood Large (3+) H (Negative) Urine Nitrite Negative (Negative) Ur Leukocyte Esterase Large (3+) H (Negative) Urine RBC 0-2 (0-2) /HPF Urine WBC >50 H (0-5) /HPF Ur Squamous Epith Cells 0-2 (0-2) /HPF Urine Bacteria Trace (None Seen) Hyaline Casts 0-2 (0-2) /LPF Stool Occult Blood (NEGATIVE) Blood Type Antibody Screen Discharge Plan Discharge Clinical Impression: Acute UTI Patient Disposition: Home, Self-Care Instructions: Urinary Tract Infection in Men (ED) Additional Instructions: Please follow-up with your primary care physician tomorrow. If you have any worsening or new symptoms, please return to the emergency room or call 911 Prescriptions: New cefuroxime axetil 500 mg tablet 500 mg PO BID Qty: 14 0RF No Action lisinopril 40 mg Tablet 40 mg PO DAILY sertraline 50 mg Tablet 25 mg PO 2XW acetaminophen 325 mg tablet 650 mg PO BID PRN aspirin 81 mg tablet,delayed release (DR/EC) 81 mg PO DAILY clonidine HCl 0.2 mg tablet 0.4 mg PO DAILY docusate sodium 100 mg capsule 100 mg PO DAILY folic acid 1 mg tablet 1 mg PO DAILY polyethylene glycol 3350 17 gram powder in packet 17 g PO .every other day potassium chloride 20 mEq/15 mL liquid 20 meq PO DAILY tamsulosin 0.4 mg capsule 0.4 mg PO DAILY amlodipine 5 mg tablet 10 mg PO DAILY amlodipine 10 mg tablet 10 mg PO DAILY finasteride 5 mg tablet 5 mg PO DAILY furosemide 40 mg tablet 40 mg PO Q OTHER DAY metoprolol tartrate 25 mg tablet 25 mg PO DAILY simvastatin 20 mg tablet 20 mg PO BEDTIME lidocaine 5 % adhesive patch,medicated 1 patch topical DAILY Rx Instructions: leave on most painful area for up to 12 hrs
[2022-11-19 19:20] LABS: Alanine Aminotransferase 14 U/L (0-40); Albumin Level 3.6 g/dL (3.5-5.0); Alkaline Phosphatase 90 U/L (39-117); Anion Gap 17 (12-20); Aspartate Amino Transferase 17 U/L (5-37); Bilirubin Direct 0.1 mg/dL (0.0-0.5); Bilirubin Total 0.4 mg/dL (0.0-1.0); Blood Urea Nitrogen 35 mg/dL (9-16); Calcium 9.3 mg/dL (8.4-10.2); Carbon Dioxide 22 mmol/L (22-29); Chloride 102 mmol/L (96-108); Creatinine Clr Calc Pharmacy 74.2; Estimated Glomerular Filt Rate > 60; Glucose Random 111 mg/dL (60-115); Potassium 4.8 mmol/L (3.3-5.1); Sodium 136 mmol/L (135-145); Total Protein 7.7 g/dL (6.5-8.0)
[2022-11-19 21:30] VITALS: BP 132/73; PULSE 69; RESP 12; TEMP 36.5; O2SAT 96
--- NOTE | 2022-11-19 21:46 | PC.NURSE ---
This RN spoke with patient's DTR + PAT Keenan ([phone]).
--- NOTE | 2022-11-19 22:22 | PC.NURSE ---
Report given to Yissel at this time, Yissel states that security will be there. Room 369 is where ambulance will go
--- NOTE | 2022-11-19 22:52 | PC.NURSE ---
This RN assumed care upon patient's arrival earlier today. Patient medicated per MAR. Patient's daughter Ree called at this time to relay update that patient will be returning back to [facility]
--- NOTE | 2022-11-19 23:32 | PC.NURSE ---
Patient picked up by ambulance at this time
== END 2022-11-19 23:38 | disposition home or self-care (01) ==
PROVIDERS: Emergency Provider Emergency Medicine; PCP Internal Medicine
DX: N39.0 Urinary tract infection, site not specified (principal); I10 Essential (primary) hypertension; E78.5 Hyperlipidemia, unspecified; I48.20 Chronic atrial fibrillation, unspecified; Z79.82 Long term (current) use of aspirin; Z79.899 Other long term (current) drug therapy
CPT/HCPCS: 36415; 80048; 80076; 81001; 81003; 82272; 85025; 85610; 85730; 86850; 86900; 86901; 87086; 87147; 96374; 99284; J0696

== ENCOUNTER 2022-11-20 12:09 | Outpatient (REF) | payer MEDICARE, MEDICAID, SELFPAY ==
[2022-11-20 12:29] LABS: MANUAL DIFF FLAG NO
[2022-11-20 12:33] LABS: Basophils Absolute Auto 0.1 X10*3/uL (0.0-0.2); Basophils Percent Auto 0.8 % (0-2); Eosinophils Absolute Auto 0.3 X10*3/uL (0.0-0.4); Eosinophils Percent Auto 2.9 % (0-4); Hematocrit 39.1 % (42.0-52.0); Hemoglobin 13.1 g/dl (14.0-18.0); Imm Gran Abs Auto 0.03 X10*3/uL (0.00-0.03); Imm Gran Pct Auto 0.3 % (0.0-0.4); Lymphocytes Absolute Auto 2.4 X10*3/uL (1.2-4.9); Mean Corpuscular HGB Conc 33.5 g/dl (31.0-36.0); Mean Corpuscular Volume 92.7 fL (80.0-98.0); Mean Platelet Volume 9.3 fL (9.4-12.4); Monocytes Absolute Auto 1.1 X10*3/uL (0.1-1.2); Monocytes Percent Auto 9.4 % (2-11); Neutrophils Absolute Auto 7.9 x10*3/uL (2.0-8.3); Neutrophils Percent Auto 66.6 % (45-73); Platelet Count 332 X10*3/uL (160-400); Red Blood Count 4.22 X10*6/uL (4.60-5.80); Red Cell Distribution Width 14.4 % (11.0-16.0); White Blood Count 11.9 X10*3/uL (4.8-10.8)
[2022-11-20 12:50] LABS: Anion Gap 13 (12-20); Blood Urea Nitrogen 26 mg/dL (9-16); Calcium 8.8 mg/dL (8.4-10.2); Carbon Dioxide 24 mmol/L (22-29); Chloride 104 mmol/L (96-108); Estimated Glomerular Filt Rate > 60; Glucose Random 108 mg/dL (60-115); Potassium 4.3 mmol/L (3.3-5.1); Sodium 137 mmol/L (135-145)
== END 2022-11-20 12:10 | disposition home or self-care (01) ==
LOC: HO.HSH3W 12:09
PROVIDERS: Visit Provider Nurse Practitioner Acute Care
DX: N39.0 Urinary tract infection, site not specified (principal)
CPT/HCPCS: 36415; 80048; 85025

== ENCOUNTER 2022-12-10 14:03 | Inpatient (IN) | payer MEDICARE, MEDICAID, SELFPAY ==
--- NOTE | ~2022-12-10 | XR_ITS ---
EXAMINATION: XR CHEST CLINICAL INFORMATION: Weakness COMPARISON: Chest radiograph from 08/04/2018 TECHNIQUE: Frontal view of the chest was obtained. FINDINGS: Chronic interstitial lung markings. Stable elevation the right hemidiaphragm. Slight prominence of the pulmonary vasculature. No pneumothorax. Trachea is midline. Cardiac mediastinal silhouette is prominent. No large pleural effusion. Osseous structures are intact. Soft tissues are unremarkable. XR/XR chest 1V IMPRESSION: 1. Chronic interstitial lung markings. 2. Stable elevation the right hemidiaphragm. 3. Slight prominence of the pulmonary vasculature.
--- NOTE | 2022-12-10 14:07 | ECG_ITS ---
Test Reason : HYPOTENSION Blood Pressure : / mmHG Vent. Rate : 053 BPM Atrial Rate : 000 BPM P-R Int : 000 ms QRS Dur : 088 ms QT Int : 428 ms P-R-T Axes : 000 -28 001 degrees QTc Int : 401 ms Atrial fibrillation with slow ventricular response with premature ventricular or aberrantly conducted complexes Nonspecific ST abnormality Abnormal ECG When compared with ECG of 12-AUG-2018 19:51, No significant change was found Referred By: Mary Carmona Electronically Signed By:LOLLY CORREA MD
[2022-12-10 14:10] VITALS: BP 103/54; BP 94/63; PULSE 50; PULSE 62; RESP 16; TEMP 37.6; O2SAT 96; BMI 33.6
--- NOTE | 2022-12-10 14:22 | ED_ITS ---
HPI - Weakness General Chief complaint: Urogenital-Male Stated complaint: SNF ?UTI PER EMS Source: patient, EMS and old records reviewed Mode of arrival: EMS Limitations: no limitations History of Present Illness HPI Narrative: 87 yo male with PMH of PAF not on thinners, dementia - mild, HTN, UTI just treated with ceftin 11/20 - 11/27, BPH, HLD, notes he has not felt well for 3 days just run down but no fevers, no pain, no vomiting or diarrhea. His urine was reported to be dark and cloudy by staff at [facility] this AM. His BP was 90s/50s. He states he just doesn't feel great. He has no cough, chest pain, shortness of breath. MD Complaint: generalized weakness Onset (ago): day(s) (3) Duration: progressively worsening Location: generalized Migration: none Severity: mild Quality: dull Relieving factors: movement Exacerbating factors: rest Associated symptoms: loss of appetite Related Data Home Medications Medication Instructions Recorded Confirmed lisinopril 40 mg tablet 40 mg PO DAILY 10/21/20 12/10/22 sertraline 50 mg tablet 50 mg PO DAILY 10/21/20 12/10/22 acetaminophen 325 mg tablet 650 mg PO TID 04/17/22 12/10/22 aspirin 81 mg tablet,delayed 81 mg PO DAILY 04/17/22 12/10/22 release clonidine HCl 0.2 mg tablet 0.4 mg PO DAILY 04/17/22 12/10/22 docusate sodium 100 mg capsule 100 mg PO BID@0900,1700 04/17/22 12/10/22 folic acid 1 mg tablet 1 mg PO DAILY 04/17/22 12/10/22 polyethylene glycol 3350 17 gram 17 g PO .every other day 04/17/22 12/10/22 oral powder packet tamsulosin 0.4 mg capsule 0.4 mg PO BEDTIME 04/17/22 12/10/22 amlodipine 10 mg tablet 10 mg PO DAILY 09/22/22 12/10/22 finasteride 5 mg tablet 5 mg PO DAILY 09/22/22 12/10/22 furosemide 40 mg tablet 40 mg PO BID@0900,1400 09/22/22 12/10/22 lidocaine 5 % topical patch 1 patch topical DAILY shoulder pain 08/08/23 10/26/23 metoprolol tartrate 25 mg tablet 25 mg PO DAILY 09/22/22 12/10/22 simvastatin 20 mg tablet 20 mg PO BEDTIME 09/22/22 12/10/22 potassium chloride 20 mEq 20 meq PO DAILY 12/10/22 12/10/22 tablet,extended release Allergies Allergy/AdvReac Type Severity Reaction Status Date / Time terazosin Allergy Unknown Unknown Verified 12/10/22 14:23 Review of Systems 2 Review of Systems: Constitutional : No Fever, No Chills, pos Fatigue ENT/Mouth : No sore throat, No Rhinorrhea Eyes: No Eye Pain, No Swelling, No Redness Cardiovascular : No Chest Pain, No SOB, No Dyspnea on Exertion Respiratory : No Cough, No Sputum Gastrointestinal : No Nausea, No Vomiting, No Diarrhea, No abdominal Pain Genitourinary : No Dysuria, No Urinary Frequency, No Hematuria, Musculoskeletal : No joint pain, No Myalgias, No Joint Swelling Skin : No Skin Lesions, No rash Neuro : pos Weakness, No Numbness, No Dizziness, noHeadache Psych : No Anxiety/Panic, No Depression All other systems reviewed and are negative [facility] Past Medical History Attestation statement: The following information was validated with the patient. Source: old records reviewed Medical History Unspecified macular degeneration Primary osteoarthritis, left shoulder Pain in left shoulder Mild cognitive impairment of uncertain or unknown etiology Localized edema Edema, unspecified Feeling of incomplete bladder emptying Personal history of urinary (tract) infections Personal history of COVID-19 Squamous cell carcinoma of skin of scalp and neck Alcohol abuse, uncomplicated Bilateral primary osteoarthritis of knee Major depressive disorder, single episode, unspecified Dementia without behavioral disturbance Alzheimer's disease with late onset Chronic atrial fibrillation BPH (benign prostatic hyperplasia) HTN (hypertension) HLD (hyperlipidemia) Family History Family History Father No problems noted. Mother No problems noted. Social History Social History Housing: Assisted Living Facility Housing Other:: [facility] Unable to assess alcohol history related to: Unknown Alcohol intake: former Patient Tobacco Use Status: Tobacco use Unknown Smoked in Last 30 Days: No Use of substances other than those prescribed or required for medical reasons: No Advance Directives: Yes Advance Directives on File: Yes Advance Directives Date on File: 12/10/22 Nutrition Risks: No Nutritional Risk Physical Exam 2 Vital Signs: Vital Signs: Last Vital Signs Temp 97.4 F 12/10/22 19:23 Pulse 77 12/10/22 19:23 Resp 16 12/10/22 19:23 BP 111/53 L 12/10/22 19:23 Pulse Ox 97 12/10/22 19:23 O2 Del Method Room Air 12/10/22 19:23 BMI result Body Mass Index 33.6 Appearance: Alert. Oriented X3 (able to answer all questions). No acute distress. Eyes: Pupils equal, round and reactive to light. ENT: Pharynx normal. Neck: Normal inspection. Neck supple. CVS: Normal heart rate and rhythm. Pulses normal. Respiratory: No respiratory distress. Breath sounds normal. Abdomen: Soft and nontender. Skin: Skin warm and dry. Normal skin color. Normal skin turgor. Extremities: No lower extremity edema. No calf ttp Neuro: Oriented X 3. No motor deficit. No sensory deficit. Medications Administered Discontinued Medications Generic Name Dose Route Start Last Admin Trade Name Freq PRN Reason Stop Dose Admin Acetaminophen 650 mg 12/10/22 14:07 12/10/22 14:40 Acetaminophen 325 Mg Tablet PO 12/10/22 14:08 650 mg ONCE ONE Administration Sodium Chloride 1,000 mls @ 999 mls/hr 12/10/22 14:15 12/10/22 15:34 Ns IVCONT 12/10/22 15:15 Infused .Q1H1M SKYLER Infusion Ceftriaxone Sodium 1 gm/ 50 mls @ 100 mls/hr 12/10/22 14:09 12/10/22 15:20 Sodium Chloride IV 12/10/22 14:38 Infused ONCE ONE Infusion Sodium Chloride 1,000 mls @ 999 mls/hr 12/10/22 15:30 12/10/22 17:20 Ns IV 12/10/22 16:30 Infused .Q1H1M SKYLER Infusion Albumin Human 100 mls @ 100 mls/hr 12/10/22 17:27 12/10/22 18:55 Kedbumin 25 % IV 12/10/22 18:26 Infused ONCE ONE Infusion Medical Decision Making Medical Decision Making MDM Narrative: 87 yo male with PMH of PAF not on thinners, dementia - mild, HTN, UTI just treated with ceftin 11/20 - 11/27, BPH, HLD here with 3 days of fatigue and malaise and not feeling well - no fevers, abdominal pain, chest pain, vomiting, diarrhea. Reported to have change in urinary output. At this time will obtain basic labs, EKG, CXR for pneumonia, UA for UTI. Start on IVF and empiric ceftriaxone. Dispo per workup and findings - BP stable on arrival after EMS fluids about 100-200mL Differential Diagnosis Differential Diagnoses: The differential diagnosis associated with the presentation includes UTI, viral syndrome, pneumonia, dehydration, renal failure, FTT Admission/Observation Consideration of admission/observation: Escalation of care including admission/observation considered given pressures still soft even after 2L of fluids will admit for UTI will give albumin as well and admit, baseline BP 140s Consult Healthcare Provider Management of the patient was discussed with: Hospitalist (will admit patient) Lab Data MDM Lab Attestation statement: I reviewed the patient's lab results. 12/10/22 14:37 12/10/22 14:37 Labs: Lab Results 12/10/22 12/10/22 Range/Units 14:37 14:47 WBC 11.2 H (4.8-10.8) X10*3/uL RBC 3.96 L (4.60-5.80) X10*6/uL Hgb 12.2 L (14.0-18.0) g/dl Hct 37.3 L (42.0-52.0) % MCV 94.2 (80.0-98.0) fL MCH 30.8 (27.0-33.0) pg MCHC 32.7 (31.0-36.0) g/dl RDW 14.6 (11.0-16.0) % Plt Count 260 (160-400) X10*3/uL MPV 9.5 (9.4-12.4) fL Immature Gran % (Auto) 0.4 (0.0-0.4) % Neut % (Auto) 64.4 (45-73) % Lymph % (Auto) 19.9 L (20-40) % [place] % (Auto) 10.8 (2-11) % Eos % (Auto) 4.1 H (0-4) % Baso % (Auto) 0.4 (0-2) % Lymph # (Auto) 2.2 (1.2-4.9) X10*3/uL [place] # (Auto) 1.2 (0.1-1.2) X10*3/uL Eos # (Auto) 0.5 H (0.0-0.4) X10*3/uL Baso # (Auto) 0.1 (0.0-0.2) X10*3/uL Abs Immat Gran (auto) 0.04 H (0.00-0.03) X10*3/uL Absolute Neuts (auto) 7.2 (2.0-8.3) x10*3/uL Absolute Nucleated RBC 0.000 (0.0-0.012) X10*3/uL Nucleated RBC % (auto) 0.0 (0.0-0.2) /100WBC Sodium 136 (135-145) mmol/L Potassium 4.5 (3.3-5.1) mmol/L Chloride 107 (96-108) mmol/L Carbon Dioxide 23 (22-29) mmol/L Anion Gap 11 L (12-20) BUN 28 H (9-16) mg/dL Creatinine 0.94 (0.5-1.4) mg/dL Estim Creat Clear Calc 80.7 Estimated GFR > 60 Random Glucose 106 (60-115) mg/dL Lactic Acid 1.2 (0.5-2.0) mmol/L Calcium 8.7 (8.4-10.2) mg/dL Magnesium 2.0 (1.6-2.6) mg/dL Total Bilirubin 0.6 (0.0-1.0) mg/dL Direct Bilirubin 0.3 (0.0-0.5) mg/dL AST 19 (5-37) U/L ALT 21 (0-40) U/L Alkaline Phosphatase 86 (39-117) U/L Troponin I High Sens < 2.7 (<3.5-35.0) ng/L Total Protein 6.7 (6.5-8.0) g/dL Albumin 3.2 L (3.5-5.0) g/dL Lipase 14 (8-78) U/L Procalcitonin 0.06 ng/mL Urine Color Yellow Urine Appearance Turbid Urine pH 6.0 (5.0-9.0) Ur Specific [place] 1.015 (1.005-1.025) Urine Protein 100 (2+) H (Neg-Trace) mg/dL Urine Glucose (UA) Negative (Negative) mg/dL Urine Ketones Negative (Negative) mg/dL Urine Blood Large (3+) H (Negative) Urine Nitrite Positive H (Negative) Ur Leukocyte Esterase Large (3+) H (Negative) Urine RBC 3-5 H (0-2) /HPF Urine WBC >50 H (0-5) /HPF Ur Squamous Epith Cells 3-5 (0-2) /HPF Urine Bacteria 4+ (None Seen) Hyaline Casts 0-2 (0-2) /LPF COVID-19 (SHAMAR) Negative (Negative) COVID-19 Clin Com See Note Independent Interpretation I performed an independent interpretation of an: EKG and Plain X-Ray (no pneumonia) Interpretation: Rate: 53 Rhythm: afib with slow vent response PVC [place]: normal Normal QRS complex. ST T wave : no [place], inverted t wave III qTC: normal prior studies: no acute ischemia The study has been interpreted contemporaneously by me. . Radiology Impression Discussion of test interpretation with radiology: I have reviewed the radiologist's reading. Independent Historian Clinical information obtained from an independent historian. History obtained from or confirmed by: EMS External Record Review External record reviewed: Inpatient record and Outpatient record Critical Care Time Critical Care Time Critical Care Time: Yes Total Critical Care Time: 35 Attestation: 2L of IVF ordered at this time given low BP, admission, IV antibiotics. I attest to this time spent taking care of the patient Discharge Plan Discharge Clinical Impression: Acute UTI, Weakness Patient Disposition: Admitted As Inpatient
[2022-12-10] MEDS: 0.9 % Sodium Chloride 1,000 ML 999 ML IVCONT (14:26)
[2022-12-10] MEDS: cefTRIAXone sodium 1 GM in 0.9 % Sodium Chloride 50 ML IV (14:39)
[2022-12-10] MEDS: Acetaminophen 325 MG TABLET 650 MG PO (14:40)
[2022-12-10 14:44] LABS: MANUAL DIFF FLAG NO
[2022-12-10 14:45] LABS: Basophils Absolute Auto 0.1 X10*3/uL (0.0-0.2); Basophils Percent Auto 0.4 % (0-2); Eosinophils Absolute Auto 0.5 X10*3/uL (0.0-0.4); Eosinophils Percent Auto 4.1 % (0-4); Hematocrit 37.3 % (42.0-52.0); Hemoglobin 12.2 g/dl (14.0-18.0); Imm Gran Abs Auto 0.04 X10*3/uL (0.00-0.03); Imm Gran Pct Auto 0.4 % (0.0-0.4); Lymphocytes Absolute Auto 2.2 X10*3/uL (1.2-4.9); Lymphocytes Percent Auto 19.9 % (20-40); Mean Corpuscular HGB Conc 32.7 g/dl (31.0-36.0); Mean Corpuscular Hemoglobin 30.8 pg (27.0-33.0); Mean Corpuscular Volume 94.2 fL (80.0-98.0); Mean Platelet Volume 9.5 fL (9.4-12.4); Monocytes Absolute Auto 1.2 X10*3/uL (0.1-1.2); Monocytes Percent Auto 10.8 % (2-11); Neutrophils Absolute Auto 7.2 x10*3/uL (2.0-8.3); Neutrophils Percent Auto 64.4 % (45-73); Platelet Count 260 X10*3/uL (160-400); Red Blood Count 3.96 X10*6/uL (4.60-5.80); Red Cell Distribution Width 14.6 % (11.0-16.0); White Blood Count 11.2 X10*3/uL (4.8-10.8)
[2022-12-10 14:54] LABS: Appearance Urine Turbid; Color Urine Yellow; Glucose Urine UA Negative (Negative); Leukocyte Esterase Urine Large (3+) (Negative); Nitrite Urine Positive (Negative); Specific Gravity - Urine 1.015 (1.005-1.025); UMIC TRIGGER UACC YES; Urine Blood Large (3+) (Negative); Urine Ketones Negative (Negative); Urine Protein 100 (2+) mg/dL (Neg-Trace)
[2022-12-10 14:58] LABS: COVID-19 Test Negative (Negative); IDNOW Serial# BCCEAD1C
[2022-12-10 14:59] LABS: Lactic Acid 1.2 mmol/L (0.5-2.0)
--- NOTE | 2022-12-10 14:59 | PC.NURSE ---
pt a&ox4, hx dementia at baseline, hypotensive, other vss, labs obtained, pt straight cath'd for urine sample, pt cleaned and condom cath applied, 18G IV left AC placed by EMS, 1L NS running, medicated per MAR. no new orders at this time.
[2022-12-10 15:03] LABS: Bacteria Urine 4+ (None Seen); Hyaline Casts Urine 0-2 /LPF (0-2); UACC Culture Trigger YES; WBC Urine >50 /HPF (0-5)
[2022-12-10 15:09] LABS: Alanine Aminotransferase 21 U/L (0-40); Albumin Level 3.2 g/dL (3.5-5.0); Alkaline Phosphatase 86 U/L (39-117); Anion Gap 11 (12-20); Aspartate Amino Transferase 19 U/L (5-37); Bilirubin Direct 0.3 mg/dL (0.0-0.5); Bilirubin Total 0.6 mg/dL (0.0-1.0); Blood Urea Nitrogen 28 mg/dL (9-16); Calcium 8.7 mg/dL (8.4-10.2); Carbon Dioxide 23 mmol/L (22-29); Chloride 107 mmol/L (96-108); Creatinine Clr Calc Pharmacy 80.7; Estimated Glomerular Filt Rate > 60; Glucose Random 106 mg/dL (60-115); Lipase 14 U/L (8-78); Potassium 4.5 mmol/L (3.3-5.1); Sodium 136 mmol/L (135-145); Total Protein 6.7 g/dL (6.5-8.0)
[2022-12-10 15:11] LABS: Troponin-I High Sensitivity < 2.7 ng/L (<3.5-35.0)
[2022-12-10 15:21] VITALS: TEMP 36.6
[2022-12-10 15:22] VITALS: BP 97/46; PULSE 69; RESP 15; TEMP 36.6; O2SAT 97
[2022-12-10 15:24] LABS: Procalcitonin 0.06 ng/mL
[2022-12-10] MEDS: 0.9 % Sodium Chloride 1,000 ML 999 ML IV (15:35)
--- NOTE | 2022-12-10 15:41 | ECG_ITS ---
Test Reason : ABNORMAL HEART RATE Blood Pressure : / mmHG Vent. Rate : 057 BPM Atrial Rate : 113 BPM P-R Int : 000 ms QRS Dur : 090 ms QT Int : 458 ms P-R-T Axes : 000 -21 000 degrees QTc Int : 445 ms Junctional bradycardia with Sinus/atrial capture with frequent Premature ventricular complexes Low voltage QRS Abnormal ECG When compared with ECG of 10-DEC-2022 14:21, Junctional rhythm has replaced Atrial fibrillation Referred By: Mary Carmona Electronically Signed By:LOLLY CORREA MD
--- NOTE | 2022-12-10 15:58 | MHC.EDTECH ---
This pct assumed care of patient at 1500 ,repeated ekg taken and was read by provider Candido Carmona on continuous vehicle monitor technician ,pt comfortable ,no apparent distress noted ,call thomas within reach
[2022-12-10 16:26] VITALS: BP 102/49; PULSE 60; RESP 16; TEMP 36.6; O2SAT 97
[2022-12-10] MEDS: Albumin Human 25 % 100 ML IV (17:42)
--- NOTE | 2022-12-10 17:45 | P.HPHOSP_ITS ---
History of Present Illness Date of Service: 12/10/22 Chief Complaint: weakness, hypotension 87M PMH chronic afib, htn, hld, bph, alzheimers dementia from [facility], recent uti with hematuria on ceftin, presented with weakness and hypotension [place], in ED ua grossly abnormal with bacturia and pyuria, borderline bp, responsive to ivf, patient asymptomatic. Review of Systems 2 Review of Systems: Yes all other systems are reviewed and are negative [facility] Medical History Unspecified macular degeneration Primary osteoarthritis, left shoulder Pain in left shoulder Mild cognitive impairment of uncertain or unknown etiology Localized edema Edema, unspecified Feeling of incomplete bladder emptying Personal history of urinary (tract) infections Personal history of COVID-19 Squamous cell carcinoma of skin of scalp and neck Alcohol abuse, uncomplicated Bilateral primary osteoarthritis of knee Major depressive disorder, single episode, unspecified Dementia without behavioral disturbance Alzheimer's disease with late onset Chronic atrial fibrillation BPH (benign prostatic hyperplasia) HTN (hypertension) HLD (hyperlipidemia) Family History Father No problems noted. Mother No problems noted. Social History Housing: Assisted Living Facility Housing Other:: [facility] Unable to assess alcohol history related to: Unknown Alcohol intake: former Patient Tobacco Use Status: Tobacco use Unknown Smoked in Last 30 Days: No Use of substances other than those prescribed or required for medical reasons: No Advance Directives: Yes Advance Directives on File: Yes Advance Directives Date on File: 12/10/22 Meds Allergies Allergy/AdvReac Type Severity Reaction Status Date / Time terazosin Allergy Unknown Unknown Verified 12/10/22 14:23 Active Medications: Current Medications Albumin Human (Kedbumin 25 %) 100 mls @ 100 mls/hr IV ONCE ONE Stop: 12/10/22 18:26 Last Admin: 12/10/22 17:42 Dose: 100 mls/hr Home Medications Medication Instructions Recorded Confirmed Last Taken Type lisinopril 40 mg tablet 40 mg PO DAILY 10/21/20 10/21/20 10/21/20 History sertraline 50 mg tablet 25 mg PO 2XW 10/21/20 10/21/20 10/21/20 History acetaminophen 325 mg tablet 650 mg PO BID PRN 04/17/22 Unknown History aspirin 81 mg tablet,delayed 81 mg PO DAILY 04/17/22 Unknown History release clonidine HCl 0.2 mg tablet 0.4 mg PO DAILY 04/17/22 Unknown History docusate sodium 100 mg capsule 100 mg PO DAILY 04/17/22 Unknown History folic acid 1 mg tablet 1 mg PO DAILY 04/17/22 Unknown History polyethylene glycol 3350 17 gram 17 g PO .every other day 04/17/22 Unknown History oral powder packet potassium chloride 20 mEq/15 mL 20 meq PO DAILY 04/17/22 Unknown History oral liquid tamsulosin 0.4 mg capsule 0.4 mg PO DAILY 04/17/22 Unknown History amlodipine 10 mg tablet 10 mg PO DAILY 09/22/22 Unknown History amlodipine 5 mg tablet 10 mg PO DAILY 09/22/22 Unknown History finasteride 5 mg tablet 5 mg PO DAILY 09/22/22 Unknown History furosemide 40 mg tablet 40 mg PO Q OTHER DAY 09/22/22 Unknown History lidocaine 5 % topical patch 1 patch topical DAILY shoulder pain 09/22/22 Unknown History metoprolol tartrate 25 mg tablet 25 mg PO DAILY 09/22/22 Unknown History simvastatin 20 mg tablet 20 mg PO BEDTIME 09/22/22 Unknown History Physical Exam 2 Vital Signs and Narrative: Vital Signs: Last Vital Signs Temp 97.9 F 12/10/22 16:26 Pulse 60 12/10/22 16:26 Resp 16 12/10/22 16:26 BP 102/49 L 12/10/22 16:26 Pulse Ox 97 12/10/22 16:26 O2 Del Method Room Air 12/10/22 16:26 BMI result Body Mass Index 33.6 alert, oriented times 3, no acute distress Results Labs 12/10/22 14:37 12/10/22 14:37 Labs: Laboratory Results - last 24 hr 12/10/22 12/10/22 14:37 14:47 MCV 94.2 MCH 30.8 MCHC 32.7 RDW 14.6 Plt Count 260 MPV 9.5 Immature Gran % (Auto) 0.4 Neut % (Auto) 64.4 Lymph % (Auto) 19.9 L [place] % (Auto) 10.8 Eos % (Auto) 4.1 H Baso % (Auto) 0.4 Lymph # (Auto) 2.2 [place] # (Auto) 1.2 Eos # (Auto) 0.5 H Baso # (Auto) 0.1 Abs Immat Gran (auto) 0.04 H Absolute Neuts (auto) 7.2 Absolute Nucleated RBC 0.000 Nucleated RBC % (auto) 0.0 Anion Gap 11 L Estim Creat Clear Calc 80.7 Estimated GFR > 60 Random Glucose 106 Lactic Acid 1.2 Calcium 8.7 Magnesium 2.0 Total Bilirubin 0.6 Direct Bilirubin 0.3 AST 19 ALT 21 Alkaline Phosphatase 86 Total Protein 6.7 Albumin 3.2 L Lipase 14 Procalcitonin 0.06 Urine Color Yellow Urine Appearance Turbid Urine pH 6.0 Ur Specific [place] 1.015 Urine Protein 100 (2+) H Urine Glucose (UA) Negative Urine Ketones Negative Urine Blood Large (3+) H Urine Nitrite Positive H Ur Leukocyte Esterase Large (3+) H Urine RBC 3-5 H Urine WBC >50 H Ur Squamous Epith Cells 3-5 Urine Bacteria 4+ Hyaline Casts 0-2 COVID-19 (SHAMAR) Negative COVID-19 Clin Com See Note Imaging Radiologist's Impressions: Impressions Chest X-Ray 12/10/22 15:59 IMPRESSION: 1. Chronic interstitial lung markings. 2. Stable elevation the right hemidiaphragm. 3. Slight prominence of the pulmonary vasculature. Assessment and Plan (1) Weakness: Status: Acute Plan 87M PMH chronic afib, htn, hld, bph, alzheimers dementia from [place] [facility], recent uti with hematuria on ceftin, presented with weakness and hypotension relative hypotension due to UTI in bph with suspected urinary retention rocephin, flomax, proscar, follow up cultures, monitor pvrs received 2L Ns, iv albumin hold bp meds, monitor chronic afib asa (not on ac ?hematuria) lopressor alzheimers dementia at baseline DNI, not dnr dvt prophylaxis - lovenox patient with significant uti causing hypotension, would continue iv treatement and close monitoring until cultures and sensitivities returned do to concern of progressing to sepsis, likely to take atleast 2 midnights inpatient. Time Spent With Patient Time: Total time managing care of this patient today ____ minutes. Quality Stroke Does the patient have a stroke diagnosis?: No VTE Prior VTE?: No VTE Risk Level:: Medical - moderate - high VTE Device Contraindication: Treatment Not Indicated VTE Drug Contraindication: N/A - Med Ordered
--- NOTE | 2022-12-10 17:47 | PC.NURSE ---
pt is refusing for this rn to connect the albumin untill he speaks to his daughter phone provided and called the number on file but no answer at this time, pt is also attempting to dial the phone number but the number is wrong dr tamayo aware of this situation
--- NOTE | 2022-12-10 17:56 | PHA.MEDREC ---
Pharmacy Consult ? Medication Reconciliation Pharmacy has completed the medication reconciliation. Patient came from [facility] home with medication list. Kelsey Del Toro, AlcidesD
[2022-12-10 18:00] VITALS: BP 149/72; PULSE 76; RESP 16; TEMP 37.2; O2SAT 98
--- NOTE | 2022-12-10 18:34 | MHC.EDTECH ---
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
[2022-12-10 19:23] VITALS: BP 111/53; PULSE 77; RESP 16; TEMP 36.3; O2SAT 97
--- NOTE | 2022-12-10 20:38 | PC.NURSE ---
Patient is alert and oriented x3, confused at times. Albumin and fluids infused with improvement in BP noted, 111-132/53-62. P 61-75. Patient denies any pain. [place] cath in place. Nurse to nurse report given to ARTURO Garces in ED overflow. Patient to be transported to overflow bed 10 by hyperbaric tech.
[2022-12-10] MEDS: Atorvastatin Calcium 10 MG TABLET PO (21:10)
[2022-12-10] MEDS: Tamsulosin HCL 0.4 MG CAPSULE PO (21:10)
[2022-12-10] MEDS: Metoprolol Tartrate 25 MG TABLET PO (21:10)
[2022-12-11 05:40] LABS: Hematocrit 38.4 % (42.0-52.0); Hemoglobin 12.6 g/dl (14.0-18.0); Mean Corpuscular HGB Conc 32.8 g/dl (31.0-36.0); Mean Corpuscular Hemoglobin 31.7 pg (27.0-33.0); Mean Corpuscular Volume 96.7 fL (80.0-98.0); Mean Platelet Volume 9.8 fL (9.4-12.4); Platelet Count 266 X10*3/uL (160-400); Red Blood Count 3.97 X10*6/uL (4.60-5.80); Red Cell Distribution Width 14.5 % (11.0-16.0); White Blood Count 11.2 X10*3/uL (4.8-10.8)
[2022-12-11 05:48] LABS: Anion Gap 13 (12-20); Blood Urea Nitrogen 24 mg/dL (9-16); Calcium 9.4 mg/dL (8.4-10.2); Carbon Dioxide 24 mmol/L (22-29); Chloride 109 mmol/L (96-108); Creatinine Clr Calc Pharmacy 94.9; Estimated Glomerular Filt Rate > 60; Glucose Fasting 99 mg/dL (60-99); Sodium 141 mmol/L (135-145)
[2022-12-11 05:56] VITALS: BP 131/71; PULSE 67; RESP 18; TEMP 36.8; O2SAT 98
--- NOTE | 2022-12-11 09:30 | PC.NURSE ---
pt took out his iv from his LAC. this RN found iv on his overbed table. pt stated I didn't want it in there . morning meds were given as documented. morning care done prior to transport to unit.
[2022-12-11] MEDS: Aspirin Enteric Coated 81 MG TABLET.DR PO (09:37)
[2022-12-11] MEDS: Enoxaparin Sodium 40 MG/0.4 ML SYRINGE SUBCUT (09:37)
[2022-12-11] MEDS: Metoprolol Tartrate 25 MG TABLET PO ×2 (09:38→20:23)
[2022-12-11] MEDS: Folic Acid 1 MG TABLET PO (09:38)
[2022-12-11] MEDS: Sertraline HCL 25 MG TABLET 50 MG PO (09:38)
[2022-12-11] MEDS: Finasteride 5 MG TABLET PO (09:38)
--- NOTE | 2022-12-11 10:22 | P.PNIM_ITS ---
Subjective Subjective Date of Service: 12/11/22 Interval History: bp improving Physical Exam 2 Vital Signs: Vital Signs: Last Vital Signs Temp 98.2 F 12/11/22 05:56 Pulse 67 12/11/22 05:56 Resp 18 12/11/22 05:56 BP 131/71 12/11/22 05:56 Pulse Ox 98 12/11/22 05:56 O2 Del Method Room Air 12/11/22 05:56 BMI result Body Mass Index 33.6 Appearance: Alert. Oriented X3 (able to answer all questions). No acute distress. Eyes: Pupils equal, round and reactive to light. ENT: Pharynx normal. Neck: Normal inspection. Neck supple. CVS: Normal heart rate and rhythm. Pulses normal. Respiratory: No respiratory distress. Breath sounds normal. Abdomen: Soft and nontender. Skin: Skin warm and dry. Normal skin color. Normal skin turgor. Extremities: No lower extremity edema. No calf ttp Neuro: Oriented X 3. No motor deficit. No sensory deficit. Objective Data Active Medications Aspirin (Aspirin Enteric Coated 81 Mg Tablet.) 81 mg PO DAILY COUNT INCLUDES THE [facility] Last Admin: 12/11/22 09:37 Dose: 81 mg Documented By: DUNIA Atorvastatin Calcium (Atorvastatin Calcium 10 Mg Tablet) 10 mg PO BEDTIME COUNT INCLUDES THE [facility] Last Admin: 12/10/22 21:10 Dose: 10 mg Documented By: LUCI Enoxaparin Sodium (Enoxaparin Sodium 40 Mg/0.4 Ml Syringe) 40 mg SUBCUT Q24H COUNT INCLUDES THE [facility] Last Admin: 12/11/22 09:37 Dose: 40 mg Documented By: DUNIA Finasteride (Finasteride 5 Mg Tablet) 5 mg PO DAILY COUNT INCLUDES THE [facility] Last Admin: 12/11/22 09:38 Dose: 5 mg Documented By: DUNIA Folic Acid (Folic Acid 1 Mg Tablet) 1 mg PO DAILY COUNT INCLUDES THE [facility] Last Admin: 12/11/22 09:38 Dose: 1 mg Documented By: DUNIA Ceftriaxone Sodium 1 gm/ (Sodium Chloride) 50 mls @ 100 mls/hr IV Q24H COUNT INCLUDES THE [facility] Metoprolol Tartrate (Metoprolol Tartrate 25 Mg Tablet) 25 mg PO BID COUNT INCLUDES THE [facility]; Protocol Last Admin: 12/11/22 09:38 Dose: 25 mg Documented By: DUNIA Sertraline HCl (Sertraline Hcl 25 Mg Tablet) 50 mg PO DAILY COUNT INCLUDES THE [facility] Last Admin: 12/11/22 09:38 Dose: 50 mg Documented By: DUNIA Sodium Chloride (0.9 % Sodium Chloride Flush 3 Ml Syringe) 3 ml IVFLUSH QSHIFT COUNT INCLUDES THE [facility] Last Admin: 12/11/22 09:37 Dose: Not Given Documented By: DUNIA Non-Admin Reason: No Access Tamsulosin HCl (Tamsulosin Hcl 0.4 Mg Capsule) 0.4 mg PO BEDTIME COUNT INCLUDES THE [facility] Last Admin: 12/10/22 21:10 Dose: 0.4 mg Documented By: LUCI Labs 12/11/22 05:26 12/11/22 05:26 Labs: Laboratory Results - last 24 hr 12/10/22 12/10/22 12/11/22 14:37 14:47 05:26 MCV 94.2 96.7 MCH 30.8 31.7 MCHC 32.7 32.8 RDW 14.6 14.5 Plt Count 260 266 MPV 9.5 9.8 Immature Gran % (Auto) 0.4 Neut % (Auto) 64.4 Lymph % (Auto) 19.9 L [place] % (Auto) 10.8 Eos % (Auto) 4.1 H Baso % (Auto) 0.4 Lymph # (Auto) 2.2 [place] # (Auto) 1.2 Eos # (Auto) 0.5 H Baso # (Auto) 0.1 Abs Immat Gran (auto) 0.04 H Absolute Neuts (auto) 7.2 Absolute Nucleated RBC 0.000 0.000 Nucleated RBC % (auto) 0.0 0.0 Anion Gap 11 L 13 Estim Creat Clear Calc 80.7 94.9 Estimated GFR > 60 > 60 Random Glucose 106 Fasting Glucose 99 Lactic Acid 1.2 Calcium 8.7 9.4 D Magnesium 2.0 2.0 Total Bilirubin 0.6 Direct Bilirubin 0.3 AST 19 ALT 21 Alkaline Phosphatase 86 Total Protein 6.7 Albumin 3.2 L Lipase 14 Procalcitonin 0.06 Urine Color Yellow Urine Appearance Turbid Urine pH 6.0 Ur Specific [place] 1.015 Urine Protein 100 (2+) H Urine Glucose (UA) Negative Urine Ketones Negative Urine Blood Large (3+) H Urine Nitrite Positive H Ur Leukocyte Esterase Large (3+) H Urine RBC 3-5 H Urine WBC >50 H Ur Squamous Epith Cells 3-5 Urine Bacteria 4+ Hyaline Casts 0-2 COVID-19 (SHAMAR) Negative COVID-19 Clin Com See Note Assessment and Plan (1) Weakness: Status: Acute Plan 87M PMH chronic afib, htn, hld, bph, alzheimers dementia from [facility], recent uti with hematuria on ceftin, presented with weakness and hypotension relative hypotension due to UTI in bph with suspected urinary retention rocephin, flomax, proscar, follow up cultures, monitor pvrs received 2L Ns, iv albumin hold bp meds bp improving follow up cultures chronic afib asa (not on ac ?hematuria) lopressor alzheimers dementia at baseline DNI, not dnr dvt prophylaxis - lovenox reason for continued hospitalization:awaiting cultures Time Spent With Patient Time: Total time managing care of this patient today ____ minutes. Quality Stroke Does the patient have a stroke diagnosis?: No VTE Prior VTE?: No VTE Risk Level:: Medical - moderate - high VTE Device Contraindication: Treatment Not Indicated VTE Drug Contraindication: N/A - Med Ordered
[2022-12-11 10:32] VITALS: BP 150/77; PULSE 78; RESP 16; TEMP 36.1; O2SAT 96
[2022-12-11] MEDS: cefTRIAXone sodium 1 GM in 0.9 % Sodium Chloride 50 ML IV (13:57)
[2022-12-11 16:00] VITALS: BP 131/66; PULSE 69; RESP 18; TEMP 36.6; O2SAT 96
--- NOTE | 2022-12-11 16:26 | MHC.CM.PN ---
PT IS A LTC RESIDENT OF [facility] CM ATTEMPTED TO CONTACT PTS HCP, IRINA CASTELLANO [phone], MULTIPLE TIMES PHONE RINGS AND THEN MESSAGE SAYS SHE IS UNREACHABLE IMM WILL BE MAILED DCP: RETURN TO [facility]
[2022-12-11 19:53] VITALS: BP 130/71; PULSE 70; RESP 17; TEMP 36.4; O2SAT 96
[2022-12-11] MEDS: Tamsulosin HCL 0.4 MG CAPSULE PO (20:23)
[2022-12-11] MEDS: 0.9 % Sodium Chloride Flush 3 ML SYRINGE IVFLUSH (20:23)
[2022-12-11] MEDS: Atorvastatin Calcium 10 MG TABLET PO (20:23)
[2022-12-12 03:20] VITALS: BP 142/72; PULSE 77; RESP 17; TEMP 36.6; O2SAT 95
[2022-12-12 06:35] LABS: Hematocrit 39.9 % (42.0-52.0); Mean Corpuscular HGB Conc 32.6 g/dl (31.0-36.0); Mean Corpuscular Hemoglobin 30.7 pg (27.0-33.0); Mean Corpuscular Volume 94.3 fL (80.0-98.0); Mean Platelet Volume 9.5 fL (9.4-12.4); Platelet Count 320 X10*3/uL (160-400); Red Blood Count 4.23 X10*6/uL (4.60-5.80); Red Cell Distribution Width 14.1 % (11.0-16.0); White Blood Count 11.9 X10*3/uL (4.8-10.8)
[2022-12-12 06:51] LABS: Anion Gap 13 (12-20); Blood Urea Nitrogen 15 mg/dL (9-16); Calcium 9.3 mg/dL (8.4-10.2); Carbon Dioxide 21 mmol/L (22-29); Chloride 109 mmol/L (96-108); Creatinine Clr Calc Pharmacy 106.9; Estimated Glomerular Filt Rate > 60; Glucose Fasting 100 mg/dL (60-99); Potassium 4.1 mmol/L (3.3-5.1); Sodium 139 mmol/L (135-145)
[2022-12-12 08:00] VITALS: BP 142/84; PULSE 93; RESP 17; TEMP 36.6; O2SAT 96
--- NOTE | 2022-12-12 10:15 | P.DS_ITS ---
DS: Providers Provider Date of Service: 12/12/22 Date of admission: 12/10/22 17:43 Primary care physician: Unknown Physician DS: Diagnosis Discharge Diagnosis (1) Weakness: Status: Acute DS: Summary Hospital Course Hospital Course: from initial hpi: 87M PMH chronic afib, htn, hld, bph, alzheimers dementia from [facility], recent uti with hematuria on ceftin, presented with weakness and hypotension [place], in ED ua grossly abnormal with bacturia and pyuria, borderline bp, responsive to ivf, patient asymptomatic. hospital course: Patient was admitted for relative hypotension due to urinary tract infection and BPH was suspected urinary retention. He was treated with ceftriaxone, Flomax, Proscar. Culture grew E coli. His blood pressure meds have been held. They will continue to be held on discharge but as blood pressure increases may need to be titrated back on. He will be discharged on 5 more days of Levaquin. For chronic AFib he was continue on Lopressor and aspirin. By Alzheimer's dementia he is at baseline. Patient is feeling better will be discharged back to custodial facility. Time Spent with Patient Time attestation: Total time managing care of this patient today ____ minutes. Discharge coordination time: Greater than 30 minutes Quality: Safe Use of Opioids Does Pt have an Active Cancer Diagnosis on the Problem List?: No Quality: Stroke Does the patient have a stroke diagnosis?: No Physical Exam Vital Signs: Vital Signs: Last Vital Signs Temp 97.8 F 12/12/22 08:00 Pulse 93 12/12/22 08:00 Resp 17 12/12/22 08:00 BP 142/84 H 12/12/22 08:00 Pulse Ox 96 12/12/22 08:00 O2 Del Method Room Air 12/12/22 08:00 BMI result Body Mass Index 33.6 Appearance: Alert. Oriented X3 (able to answer all questions). No acute dis tress. Eyes: Pupils equal, round and reactive to light. ENT: Pharynx normal. Neck: Normal inspection. Neck supple. CVS: Normal heart rate and rhythm. Pulses normal. Respiratory: No respiratory distress. Breath sounds normal. Abdomen: Soft and nontender. Skin: Skin warm and dry. Normal skin color. Normal skin turgor. Extremities: No lower extremity edema. No calf ttp Neuro: Oriented X 3. No motor deficit. No sensory deficit. DS: Data Data Completed and Pending Labs on day of discharge: Laboratory Results - last 24 hr 12/12/22 05:58 WBC 11.9 H RBC 4.23 L Hgb 13.0 L Hct 39.9 L MCV 94.3 MCH 30.7 MCHC 32.6 RDW 14.1 Plt Count 320 MPV 9.5 Absolute Nucleated RBC 0.000 Nucleated RBC % (auto) 0.0 Sodium 139 Potassium 4.1 Chloride 109 H Carbon Dioxide 21 L Anion Gap 13 BUN 15 Creatinine 0.71 Estim Creat Clear Calc 106.9 Estimated GFR > 60 Fasting Glucose 100 H Calcium 9.3 Preliminary micro results at discharge 12/10/22 14:47 Blood Culture - Preliminary Blood - Venous No growth after 24 hours. 12/10/22 14:37 Blood Culture - Preliminary Blood - Venous No growth after 24 hours. Discharge Plan Discharge Anticipated Discharge Date/Time: 12/12/22 10:12 Patient Disposition: Xfer [facility] Discharge Diagnosis: uti Referrals: Physician,Unknown J [Primary Care Provider] - 1 Week Discharge Medications: New levofloxacin 500 mg tablet 500 mg PO DAILY Qty: 5 0RF Continued sertraline 50 mg Tablet 50 mg PO DAILY acetaminophen 325 mg tablet 650 mg PO TID aspirin 81 mg tablet,delayed release (DR/EC) 81 mg PO DAILY docusate sodium 100 mg capsule 100 mg PO BID@0900,1700 folic acid 1 mg tablet 1 mg PO DAILY polyethylene glycol 3350 17 gram powder in packet 17 g PO .every other day tamsulosin 0.4 mg capsule 0.4 mg PO BEDTIME finasteride 5 mg tablet 5 mg PO DAILY metoprolol tartrate 25 mg tablet 25 mg PO DAILY simvastatin 20 mg tablet 20 mg PO BEDTIME lidocaine 5 % adhesive patch,medicated 1 patch topical DAILY Rx Instructions: leave on most painful area for up to 12 hrs Discontinued lisinopril 40 mg Tablet 40 mg PO DAILY potassium chloride 20 mEq Tablet Extended Release 20 meq PO DAILY clonidine HCl 0.2 mg tablet 0.4 mg PO DAILY amlodipine 10 mg tablet 10 mg PO DAILY furosemide 40 mg tablet 40 mg PO BID@0900,1400 Discharge Orders: Discharge Order (Routine); Ordered 12/12/22 Ordered By: Joe Gary Diet: Advance to usual diet Activity on Discharge: As tolerated Stand Alone Forms: Patient Portal Discharge page Care Plan Goals: recovery Health Concerns: uti, low bp Plan of Treatment: 5 days levaquin, holding many bp meds and diuretics that may need to be retritated back on depending on blood pressure Assessment: see above
[2022-12-12 10:43] VITALS: BP 134/91; PULSE 84
[2022-12-12] MEDS: Sertraline HCL 25 MG TABLET 50 MG PO (10:49)
[2022-12-12] MEDS: Metoprolol Tartrate 25 MG TABLET PO (10:50)
[2022-12-12] MEDS: Folic Acid 1 MG TABLET PO (10:50)
[2022-12-12] MEDS: Aspirin Enteric Coated 81 MG TABLET.DR PO (10:50)
[2022-12-12] MEDS: Enoxaparin Sodium 40 MG/0.4 ML SYRINGE SUBCUT (10:51)
[2022-12-12] MEDS: Finasteride 5 MG TABLET PO (10:51)
[2022-12-12] MEDS: 0.9 % Sodium Chloride Flush 3 ML SYRINGE IVFLUSH (10:52)
--- NOTE | 2022-12-12 11:08 | MHC.CM.PN ---
pt to return to [facility] at 12:30 arrangements made with marcos myles to do nurse to nurse to [place] [phone]
--- NOTE | 2022-12-12 11:15 | MHC.CM.PN ---
jj blackfied of dc
== END 2022-12-12 13:15 | disposition skilled nursing facility (03) | DRG 726 ==
LOC: HO.ED 17:29 → HO.EDOVER 17:49 → HO.S3 12-11 08:43
PROVIDERS: Admitting Provider Internal Medicine; Emergency Provider Emergency Medicine; PCP Internal Medicine; Visit Provider Internal Medicine
DX: N40.1 Benign prostatic hyperplasia with lower urinary tract symptoms (principal); I48.20 Chronic atrial fibrillation, unspecified; N39.0 Urinary tract infection, site not specified; R33.8 Other retention of urine; I95.9 Hypotension, unspecified; B96.20 Unspecified Escherichia coli [E. coli] as the cause of diseases classified elsewhere; G30.1 Alzheimer's disease with late onset; F02.80 Dementia in other diseases classified elsewhere, unspecified severity, without behavioral disturbance, psychotic disturbance, mood disturbance, and anxiety; Z20.822 Contact with and (suspected) exposure to COVID-19; Z87.440 Personal history of urinary (tract) infections; Z79.82 Long term (current) use of aspirin; Z79.899 Other long term (current) drug therapy
CPT/HCPCS: 36415; 71045; 80048; 80076; 81001; 83605; 83690; 83735; 84145; 84484; 85025; 85027; 87040; 87086; 87088; 87186; 87635; 93005; 99285; J0696; J1650; P9047

== ENCOUNTER → 2022-12-10 17:43 | Outpatient (BNV) | payer MEDICARE, MEDICAID, SELFPAY | PROVIDERS: Admitting Provider Internal Medicine; Emergency Provider Emergency Medicine; Visit Provider Internal Medicine | DX: R53.1 Weakness (principal); N39.0 Urinary tract infection, site not specified | CPT/HCPCS: 99223; 99232; 99239 ==

== ENCOUNTER 2022-12-14 04:56 | Outpatient (REF) | payer MEDICARE, MEDICAID, SELFPAY ==
[2022-12-14 06:34] LABS: MANUAL DIFF FLAG NO
[2022-12-14 06:42] LABS: Basophils Absolute Auto 0.1 X10*3/uL (0.0-0.2); Basophils Percent Auto 0.7 % (0-2); Eosinophils Absolute Auto 0.5 X10*3/uL (0.0-0.4); Eosinophils Percent Auto 4.6 % (0-4); Hematocrit 37.3 % (42.0-52.0); Hemoglobin 12.3 g/dl (14.0-18.0); Imm Gran Abs Auto 0.03 X10*3/uL (0.00-0.03); Imm Gran Pct Auto 0.3 % (0.0-0.4); Lymphocytes Absolute Auto 2.4 X10*3/uL (1.2-4.9); Lymphocytes Percent Auto 23.4 % (20-40); Mean Corpuscular Hemoglobin 30.9 pg (27.0-33.0); Mean Corpuscular Volume 93.7 fL (80.0-98.0); Mean Platelet Volume 9.2 fL (9.4-12.4); Monocytes Absolute Auto 0.9 X10*3/uL (0.1-1.2); Monocytes Percent Auto 8.9 % (2-11); Neutrophils Absolute Auto 6.3 x10*3/uL (2.0-8.3); Neutrophils Percent Auto 62.1 % (45-73); Platelet Count 302 X10*3/uL (160-400); Red Blood Count 3.98 X10*6/uL (4.60-5.80); Red Cell Distribution Width 13.9 % (11.0-16.0); White Blood Count 10.2 X10*3/uL (4.8-10.8)
[2022-12-14 07:07] LABS: Anion Gap 12 (12-20); Blood Urea Nitrogen 14 mg/dL (9-16); Calcium 9.3 mg/dL (8.4-10.2); Carbon Dioxide 23 mmol/L (22-29); Chloride 107 mmol/L (96-108); Estimated Glomerular Filt Rate > 60; Glucose Fasting 97 mg/dL (60-99); Potassium 4.1 mmol/L (3.3-5.1); Sodium 138 mmol/L (135-145)
== END 2022-12-14 04:57 | disposition home or self-care (01) ==
LOC: HO.HSH3W 04:56
PROVIDERS: Visit Provider Internal Medicine
DX: N39.0 Urinary tract infection, site not specified (principal)
CPT/HCPCS: 36415; 80048; 85025

== ENCOUNTER 2022-12-28 05:19 | Outpatient (REF) | payer MEDICARE, MEDICAID, SELFPAY ==
[2022-12-28 06:57] LABS: MANUAL DIFF FLAG NO
[2022-12-28 07:20] LABS: Basophils Absolute Auto 0.1 X10*3/uL (0.0-0.2); Basophils Percent Auto 0.8 % (0-2); Eosinophils Absolute Auto 0.5 X10*3/uL (0.0-0.4); Eosinophils Percent Auto 4.5 % (0-4); Hematocrit 39.5 % (42.0-52.0); Hemoglobin 12.9 g/dl (14.0-18.0); Imm Gran Abs Auto 0.03 X10*3/uL (0.00-0.03); Imm Gran Pct Auto 0.3 % (0.0-0.4); Lymphocytes Absolute Auto 2.5 X10*3/uL (1.2-4.9); Lymphocytes Percent Auto 24.7 % (20-40); Mean Corpuscular HGB Conc 32.7 g/dl (31.0-36.0); Mean Corpuscular Hemoglobin 31.4 pg (27.0-33.0); Mean Corpuscular Volume 96.1 fL (80.0-98.0); Mean Platelet Volume 9.9 fL (9.4-12.4); Monocytes Absolute Auto 0.9 X10*3/uL (0.1-1.2); Monocytes Percent Auto 8.5 % (2-11); Neutrophils Absolute Auto 6.2 x10*3/uL (2.0-8.3); Neutrophils Percent Auto 61.2 % (45-73); Platelet Count 322 X10*3/uL (160-400); Red Blood Count 4.11 X10*6/uL (4.60-5.80); Red Cell Distribution Width 14.3 % (11.0-16.0); White Blood Count 10.1 X10*3/uL (4.8-10.8)
== END 2022-12-28 05:20 | disposition home or self-care (01) ==
LOC: HO.HSH3W 05:19
PROVIDERS: Visit Provider Nurse Practitioner
DX: D64.9 Anemia, unspecified (principal)
CPT/HCPCS: 36415; 85025

== ENCOUNTER 2023-01-20 08:56 | Inpatient (IN) | payer MEDICARE, MEDICAID, SELFPAY ==
[2023-01-20] VITALS (15 sets, daily range): BP systolic 107–152; BP diastolic 54–80; PULSE 78–145; RESP 15–20; TEMP 36.8–39.2; O2SAT 95–98; BMI 34.1
--- NOTE | ~2023-01-20 | XR_ITS ---
EXAMINATION: XR CHEST CLINICAL INFORMATION: Chills. COMPARISON: Chest 12/10/2022 TECHNIQUE: Frontal view of the chest was obtained. FINDINGS: There is mild cardiomegaly with normal pulmonary vascularity. The lungs are hypoexpanded with increased bilateral interstitial markings. No gross bony abnormality seen. XR/XR chest 1V IMPRESSION: Mild cardiomegaly with increased pulmonary vascular markings likely chronic interstitial lung changes. Similar findings were seen on 12/10/2022.
--- NOTE | ~2023-01-20 | US_ITS ---
EXAMINATION: US VENOUS WITH DOPPLER UPPER EXTREMITY, LEFT CLINICAL INFORMATION: Left pain and swelling. COMPARISON: None available. TECHNIQUE: Ultrasound of the upper extremity is performed using compression sonography and color and pulse Doppler flow with assessment of augmentation of flow. There is also imaging and Doppler assessment of the jugular and subclavian veins. Spectral analysis with color-flow imaging is performed. FINDINGS: Respiratory variation, normal compression, and augmented flow are noted throughout the upper extremity including the axillary, brachial, cubital, and radial and ulnar veins. There is normal flow in the internal jugular and subclavian veins. There is no visible deep or superficial thrombophlebitis. If the patient's symptoms progress, a followup ultrasound in 5 -7 days might be of value to exclude proximal propagation from a nonvisualized distal arm vein. US/US venous duplex UE LT IMPRESSION: No DVT demonstrated in the left upper extremity.
--- NOTE | 2023-01-20 09:27 | ED.GENADULT ---
HPI - General Adult General Chief complaint: General Medical Stated complaint: ? UTI Time Seen by Provider: 01/20/23 09:13 Source: patient, EMS, RN notes reviewed and old records reviewed Mode of arrival: EMS History of Present Illness HPI narrative: 87-year-old male with a past medical history of chronic AFib, HTN, HLD, BPH, Alzheimer's dementia from [facility], recently discharged from our facility on 12/12/22 s/p hypotension due to UTI, presenting to the ED via EMS for low-grade fever, lethargy/generalized fatigue, tachycardia x this morning. Per EMS patient tested for COVID & flu this AM and negative. Patient denies chest pain/shortness of breath, abdominal pain, nausea/vomiting. Onset (ago): hour(s) Related Data Home Medications Medication Instructions Recorded Confirmed sertraline 50 mg tablet 50 mg PO DAILY 10/21/20 01/20/23 acetaminophen 325 mg tablet 650 mg PO TID 04/17/22 01/20/23 aspirin 81 mg tablet,delayed 81 mg PO DAILY 04/17/22 01/20/23 release docusate sodium 100 mg capsule 100 mg PO BID@0900,1700 04/17/22 01/20/23 folic acid 1 mg tablet 1 mg PO DAILY 04/17/22 01/20/23 polyethylene glycol 3350 17 gram 17 g PO Q2D 04/17/22 01/20/23 oral powder packet tamsulosin 0.4 mg capsule 0.4 mg PO BEDTIME 04/17/22 01/20/23 finasteride 5 mg tablet 5 mg PO DAILY 09/22/22 01/20/23 lidocaine 5 % topical patch 1 patch topical DAILY shoulder pain 09/22/22 01/20/23 metoprolol tartrate 25 mg tablet 25 mg PO BID 09/22/22 01/20/23 simvastatin 20 mg tablet 20 mg PO BEDTIME 09/22/22 01/20/23 amlodipine 5 mg tablet 5 mg PO DAILY 01/20/23 01/20/23 clonidine HCl 0.2 mg tablet 0.4 mg PO DAILY 01/20/23 01/20/23 furosemide 40 mg tablet 20 mg PO DAILY 01/20/23 01/20/23 lisinopril 40 mg tablet 40 mg PO DAILY 01/20/23 01/20/23 potassium chloride 20 mEq 20 meq PO DAILY 01/20/23 01/20/23 tablet,extended release Allergies Allergy/AdvReac Type Severity Reaction Status Date / Time terazosin Allergy Unknown Unknown Verified 12/10/22 14:23 Review of Systems Review of Systems: Constitutional: + Fever, No Chills Cardiovascular: No Chest Pain, No SOB Respiratory: No Cough Gastrointestinal: No Nausea, No Vomiting, No Diarrhea, No Constipation, No Abdominal pain Skin: No Skin Lesions, No rash Neuro: + Weakness, No Numbness, No Paresthesias ROS limited due to patient's baseline dementia Yes all other systems are reviewed and are negative Constitutional: Constitutional: Reports as per [facility] Past Medical History Attestation statement: The following information was validated with the patient. Source: old records reviewed Medical History Unspecified macular degeneration Primary osteoarthritis, left shoulder Pain in left shoulder Mild cognitive impairment of uncertain or unknown etiology Localized edema Edema, unspecified Feeling of incomplete bladder emptying Personal history of urinary (tract) infections Personal history of COVID-19 Squamous cell carcinoma of skin of scalp and neck Alcohol abuse, uncomplicated Bilateral primary osteoarthritis of knee Major depressive disorder, single episode, unspecified Dementia without behavioral disturbance Alzheimer's disease with late onset Chronic atrial fibrillation BPH (benign prostatic hyperplasia) HTN (hypertension) HLD (hyperlipidemia) Family History Family History Father No problems noted. Mother No problems noted. Social History Social History Household Members: Other Household Members [facility]:: [facility]: [facility] Other:: [facility] [place] Unable to assess alcohol history related to: Unknown Alcohol intake: former Patient Tobacco Use Status: Never used Tobacco Smoked in Last 30 Days: No Use of substances other than those prescribed or required for medical reasons: No Advance Directives: Yes Advance Directives on File: Yes Advance Directives Date on File: 12/10/22 service: Yes Physical Exam ED Vital Signs: Vital Signs - 24 hr 01/20/23 09:28 01/20/23 09:47 01/20/23 10:00 Temperature 98.2 F 102.6 F H Pulse Rate 120 H 107 H Respiratory Rate 16 18 Blood Pressure 107/67 123/70 Pulse Oximetry 95 96 Oxygen Delivery Method Room Air Room Air 01/20/23 10:48 01/20/23 11:05 01/20/23 11:31 Temperature 98.4 F 98.9 F Pulse Rate 94 89 78 Respiratory Rate 16 16 16 Blood Pressure 130/59 L 109/54 L 117/57 L Pulse Oximetry 95 96 95 Oxygen Delivery Method Room Air Room Air Room Air 01/20/23 11:33 01/20/23 12:38 01/20/23 13:00 Temperature 98.5 F Pulse Rate 83 82 81 Respiratory Rate 16 18 17 Blood Pressure 116/58 L 118/64 121/64 Pulse Oximetry 95 95 96 Oxygen Delivery Method Room Air Room Air Room Air 01/20/23 14:00 01/20/23 14:50 Temperature 99.4 F Pulse Rate 92 79 Respiratory Rate 16 16 Blood Pressure 130/60 122/59 L Pulse Oximetry 96 97 Oxygen Delivery Method Room Air Room Air BMI result Body Mass Index 34.1 Const General: cooperative, healthy appearing and no acute distress Orientation/consciousness: oriented to person and oriented to place HENMT Head: Yes normal to inspection and Yes atraumatic Ears: hearing grossly normal bilaterally General nose exam: Normal external nose present Face and sinus: Yes normal facial exam Eyes General: appearance normal, both eyes and all related structures EOM: EOMs intact bilaterally Neck Neck: Yes normal visual inspection and Yes no meningeal signs Resp Effort & Inspection: normal respiratory effort and no respiratory distress Auscultation: clear to auscultation bilaterally, no rhonchi and no wheezes Cardio Rate: tachycardic Heart sounds: S1 normal heart sound present and S2 normal heart sound present GI Inspection: Yes normal to inspection Palpation (GI): Soft to palpation, nontender, no guarding and not rigid General: Yes no CVA tenderness Back/Spine/Pelvis Back: no CVA tenderness Skin Rashes: no rashes Wounds: no wounds Neuro General: oriented to person, oriented to place, tone normal, moves all extremities and no meningeal signs Cranial nerves: Yes CN's II-XII intact bilaterally Extrem General: Yes normal to inspection and Yes no pedal edema Course Course Course Narrative: -1004--rectal temp 102.6 degrees > sepsis alert called. Empiric IV Rocephin ordered -EKG AFib with RVR. Will treat with antipyretics and IVF -1127--tachycardia improved. Noted leukocytosis of 18.1. H&H at patient's baseline. BNP 359. Labs otherwise reassuring. Lactic acid negative -COVID/flu/RSV negative XR chest 1V IMPRESSION: Mild cardiomegaly with increased pulmonary vascular markings likely chronic interstitial lung changes. Similar findings were seen on 12/10/2022. -UA infected > plan to admit for further management. Case discussed with hospitalist Medications Administered Generic Name Dose Route Start Last Admin Trade Name Freq PRN Reason Stop Dose Admin Sodium Chloride 3 ml 01/20/23 16:00 01/20/23 15:32 0.9 % Sodium Chloride Flush 3 Ml Syringe IVFLUSH Not Given QSHIFT SKYLER Discontinued Medications Generic Name Dose Route Start Last Admin Trade Name Freq PRN Reason Stop Dose Admin Acetaminophen 975 mg 01/20/23 09:59 01/20/23 10:21 Acetaminophen 325 Mg Tablet PO 01/20/23 10:00 975 mg ONCE ONE Administration Sodium Chloride 500 mls @ 999 mls/hr 01/20/23 10:00 01/20/23 11:29 Ns IV 01/20/23 10:30 Infused .Q31M SKYLER Infusion Ceftriaxone Sodium 1 gm/ 50 mls @ 100 mls/hr 01/20/23 10:04 01/20/23 10:50 Sodium Chloride IV 01/20/23 10:33 Infused ONCE ONE Infusion Sodium Chloride 500 mls @ 999 mls/hr 01/20/23 10:15 01/20/23 11:29 Ns IV 01/20/23 10:45 Infused .Q31M SKYLER Infusion Medical Decision Making Medical Decision Making MDM Narrative: 87-year-old male with a past medical history of chronic AFib, HTN, HLD, BPH, Alzheimer's dementia from [facility], recently discharged from our facility on 12/12/22 s/p hypotension due to UTI, presenting to the ED via EMS for low-grade fever, lethargy/generalized fatigue, tachycardia x this morning. On exam tachycardic, suspicious for AFib w/RVR, NAD/nontoxic-appearing, A&O x2 with baseline dementia. Lungs CTA, exam otherwise nonfocal. Concern for viral illness vs pneumonia vs UTI/infectious etiology. Lower suspicion for intra-abdominal pathology or CHF. Unlikely severe sepsis the at this time as tachycardia suspected from underlying arrhythmia Plan: EKG, labs, UA, viral testing, CXR, IVF, re-evaluate Please refer to course for remaining clinical decision making, interpretation of labs/imaging results, and discussions with consultants and/or family members. Differential Diagnosis Differential Diagnoses: The differential diagnosis associated with the presentation includes As above Admission/Observation Consideration of admission/observation: Escalation of care including admission/observation considered Consult Healthcare Provider Management of the patient was discussed with: Hospitalist Lab Data MDM Lab Attestation statement: I reviewed the patient's lab results. 01/20/23 10:30 01/20/23 10:19 Labs: Lab Results 01/20/23 01/20/23 01/20/23 Range/Units 10:19 10:30 10:31 WBC 18.1 H (4.8-10.8) X10*3/uL RBC 4.38 L (4.60-5.80) X10*6/uL Hgb 13.4 L (14.0-18.0) g/dl Hct 41.1 L (42.0-52.0) % MCV 93.8 (80.0-98.0) fL MCH 30.6 (27.0-33.0) pg MCHC 32.6 (31.0-36.0) g/dl RDW 13.9 (11.0-16.0) % Plt Count 297 (160-400) X10*3/uL MPV 9.3 L (9.4-12.4) fL Immature Gran % (Auto) 0.7 H (0.0-0.4) % Neut % (Auto) 84.2 H (45-73) % Lymph % (Auto) 4.5 L (20-40) % [place] % (Auto) 10.1 (2-11) % Eos % (Auto) 0.1 (0-4) % Baso % (Auto) 0.4 (0-2) % Lymph # (Auto) 0.8 L (1.2-4.9) X10*3/uL [place] # (Auto) 1.8 H (0.1-1.2) X10*3/uL Eos # (Auto) 0.0 (0.0-0.4) X10*3/uL Baso # (Auto) 0.1 (0.0-0.2) X10*3/uL Abs Immat Gran (auto) 0.12 H (0.00-0.03) X10*3/uL Absolute Neuts (auto) 15.2 H (2.0-8.3) x10*3/uL Absolute Nucleated RBC 0.000 (0.0-0.012) X10*3/uL Nucleated RBC % (auto) 0.0 (0.0-0.2) /100WBC Smear Tech's Comments VERIFIED PT 14.3 H (11.1-13.3) SEC INR 1.2 H (0.9-1.1) Sodium 136 (135-145) mmol/L Potassium 4.5 (3.3-5.1) mmol/L Chloride 107 (96-108) mmol/L Carbon Dioxide 21 L (22-29) mmol/L Anion Gap 13 (12-20) BUN 19 H (9-16) mg/dL Creatinine 0.85 (0.5-1.4) mg/dL Estim Creat Clear Calc 90.1 Estimated GFR > 60 Random Glucose 123 H (60-115) mg/dL Lactic Acid 1.7 (0.5-2.0) mmol/L Calcium 9.2 (8.4-10.2) mg/dL Magnesium 1.8 (1.6-2.6) mg/dL Total Bilirubin 1.1 H (0.0-1.0) mg/dL Direct Bilirubin 0.6 H (0.0-0.5) mg/dL AST 14 (5-37) U/L ALT 14 (0-40) U/L Alkaline Phosphatase 85 (39-117) U/L Troponin I High Sens 4.4 D (<3.5-35.0) ng/L B-Natriuretic Peptide 359 H (<100) pg/mL Total Protein 7.8 (6.5-8.0) g/dL Albumin 3.6 (3.5-5.0) g/dL Urine Color Urine Appearance Urine pH (5.0-9.0) Ur Specific [place] (1.005-1.025) Urine Protein (Neg-Trace) mg/dL Urine Glucose (UA) (Negative) mg/dL Urine Ketones (Negative) mg/dL Urine Blood (Negative) Urine Nitrite (Negative) Ur Leukocyte Esterase (Negative) Urine RBC (0-2) /HPF Urine WBC (0-5) /HPF Ur Squamous Epith Cells (0-2) /HPF Urine Bacteria (None Seen) Hyaline Casts (0-2) /LPF Influenza Type A (PCR) NEGATIVE (Negative) Influenza Type B (PCR) NEGATIVE (Negative) RSV RNA Qual (PCR) NEGATIVE (Negative) SARS-CoV-2 RNA (RT-PCR) NEGATIVE (Negative) 01/20/23 Range/Units 14:02 WBC (4.8-10.8) X10*3/uL RBC (4.60-5.80) X10*6/uL Hgb (14.0-18.0) g/dl Hct (42.0-52.0) % MCV (80.0-98.0) fL MCH (27.0-33.0) pg MCHC (31.0-36.0) g/dl RDW (11.0-16.0) % Plt Count (160-400) X10*3/uL MPV (9.4-12.4) fL Immature Gran % (Auto) (0.0-0.4) % Neut % (Auto) (45-73) % Lymph % (Auto) (20-40) % [place] % (Auto) (2-11) % Eos % (Auto) (0-4) % Baso % (Auto) (0-2) % Lymph # (Auto) (1.2-4.9) X10*3/uL [place] # (Auto) (0.1-1.2) X10*3/uL Eos # (Auto) (0.0-0.4) X10*3/uL Baso # (Auto) (0.0-0.2) X10*3/uL Abs Immat Gran (auto) (0.00-0.03) X10*3/uL Absolute Neuts (auto) (2.0-8.3) x10*3/uL Absolute Nucleated RBC (0.0-0.012) X10*3/uL Nucleated RBC % (auto) (0.0-0.2) /100WBC Smear Tech's Comments PT (11.1-13.3) SEC INR (0.9-1.1) Sodium (135-145) mmol/L Potassium (3.3-5.1) mmol/L Chloride (96-108) mmol/L Carbon Dioxide (22-29) mmol/L Anion Gap (12-20) BUN (9-16) mg/dL Creatinine (0.5-1.4) mg/dL Estim Creat Clear Calc Estimated GFR Random Glucose (60-115) mg/dL Lactic Acid (0.5-2.0) mmol/L Calcium (8.4-10.2) mg/dL Magnesium (1.6-2.6) mg/dL Total Bilirubin (0.0-1.0) mg/dL Direct Bilirubin (0.0-0.5) mg/dL AST (5-37) U/L ALT (0-40) U/L Alkaline Phosphatase (39-117) U/L Troponin I High Sens (<3.5-35.0) ng/L B-Natriuretic Peptide (<100) pg/mL Total Protein (6.5-8.0) g/dL Albumin (3.5-5.0) g/dL Urine Color Yellow Urine Appearance Turbid Urine pH 6.5 (5.0-9.0) Ur Specific [place] 1.015 (1.005-1.025) Urine Protein 100 (2+) H (Neg-Trace) mg/dL Urine Glucose (UA) Negative (Negative) mg/dL Urine Ketones Negative (Negative) mg/dL Urine Blood Moderate (2+) H (Negative) Urine Nitrite Negative (Negative) Ur Leukocyte Esterase Large (3+) H (Negative) Urine RBC 11-20 H (0-2) /HPF Urine WBC >50 H (0-5) /HPF Ur Squamous Epith Cells 0-2 (0-2) /HPF Urine Bacteria 4+ (None Seen) Hyaline Casts 3-5 (0-2) /LPF Influenza Type A (PCR) (Negative) Influenza Type B (PCR) (Negative) RSV RNA Qual (PCR) (Negative) SARS-CoV-2 RNA (RT-PCR) (Negative) Independent Interpretation I performed an independent interpretation of an: EKG (My interpretation EKG AFib with RVR rate of 121. QTC 423. No STEMI. Frequent PVCs) Radiology Impression Discussion of test interpretation with radiology: I have reviewed the radiologist's reading. Independent Historian Clinical information obtained from an independent historian. History obtained from or confirmed by: EMS External Record Review External record reviewed: Inpatient record, Office record, Outpatient record, Prior outpatient labs, Prior outpatient radiology, Primary care record and Outside ED record Tests considered The following testing was considered but not selected: As above Prescription Management I considered prescription management with: Pain Medication and Antibiotic Chronic Conditions Patient?s care impacted by: Other (Dementia, AFib) Social Determinants Patient?s care significantly limited by Social Determinants of Health including: Problems related to primary support group and Other Social Determinant of Health Critical Care Time Critical Care Time Critical Care Time: Yes Total Critical Care Time: 45 Attestation: I have personally provided critical care time exclusive of time spent on separately billable procedures. Time includes review of lab data, radiology results, discussion with consultants, and monitoring for potential decompensation. Intervention performed as documented. Discharge Plan Discharge Clinical Impression: Acute UTI Patient Disposition: Admitted As Inpatient
--- NOTE | 2023-01-20 09:35 | ECG_ITS ---
Test Reason : SEPSIS Blood Pressure : / mmHG Vent. Rate : 121 BPM Atrial Rate : 000 BPM P-R Int : 000 ms QRS Dur : 092 ms QT Int : 298 ms P-R-T Axes : 000 -09 016 degrees QTc Int : 423 ms Atrial fibrillation with rapid ventricular response with premature ventricular or aberrantly conducted complexes Abnormal ECG When compared with ECG of 10-DEC-2022 15:42, Vent. rate has increased BY 64 BPM Referred By: Brea Dhillon Electronically Signed By:GREY CAMPO
[2023-01-20] MEDS: 0.9 % Sodium Chloride 500 ML 999 ML IV ×2 (10:04→10:35)
[2023-01-20] MEDS: cefTRIAXone sodium 1 GM in 0.9 % Sodium Chloride 50 ML IV (10:20)
[2023-01-20] MEDS: Acetaminophen 325 MG TABLET 975 MG PO (10:21)
[2023-01-20 10:39] LABS: INTERNATIONAL NORM RATIO 1.2 (0.9-1.1); Prothrombin Time 14.3 SEC (11.1-13.3)
[2023-01-20 10:45] LABS: Basophils Absolute Auto 0.1 X10*3/uL (0.0-0.2); Basophils Percent Auto 0.4 % (0-2); Eosinophils Percent Auto 0.1 % (0-4); Hematocrit 41.1 % (42.0-52.0); Hemoglobin 13.4 g/dl (14.0-18.0); Imm Gran Abs Auto 0.12 X10*3/uL (0.00-0.03); Imm Gran Pct Auto 0.7 % (0.0-0.4); Lymphocytes Absolute Auto 0.8 X10*3/uL (1.2-4.9); Lymphocytes Percent Auto 4.5 % (20-40); MANUAL DIFF FLAG SCAN; Mean Corpuscular HGB Conc 32.6 g/dl (31.0-36.0); Mean Corpuscular Hemoglobin 30.6 pg (27.0-33.0); Mean Corpuscular Volume 93.8 fL (80.0-98.0); Mean Platelet Volume 9.3 fL (9.4-12.4); Monocytes Absolute Auto 1.8 X10*3/uL (0.1-1.2); Monocytes Percent Auto 10.1 % (2-11); Neutrophils Absolute Auto 15.2 x10*3/uL (2.0-8.3); Neutrophils Percent Auto 84.2 % (45-73); Platelet Count 297 X10*3/uL (160-400); Red Blood Count 4.38 X10*6/uL (4.60-5.80); Red Cell Distribution Width 13.9 % (11.0-16.0); SCAN SMEAR FLAG 1; White Blood Count 18.1 X10*3/uL (4.8-10.8)
[2023-01-20 10:49] LABS: Lactic Acid 1.7 mmol/L (0.5-2.0)
[2023-01-20 10:51] LABS: Alanine Aminotransferase 14 U/L (0-40); Albumin Level 3.6 g/dL (3.5-5.0); Alkaline Phosphatase 85 U/L (39-117); Anion Gap 13 (12-20); Aspartate Amino Transferase 14 U/L (5-37); Bilirubin Direct 0.6 mg/dL (0.0-0.5); Bilirubin Total 1.1 mg/dL (0.0-1.0); Blood Urea Nitrogen 19 mg/dL (9-16); Calcium 9.2 mg/dL (8.4-10.2); Carbon Dioxide 21 mmol/L (22-29); Chloride 107 mmol/L (96-108); Creatinine Clr Calc Pharmacy 90.1; Estimated Glomerular Filt Rate > 60; Glucose Random 123 mg/dL (60-115); Magnesium 1.8 mg/dL (1.6-2.6); Potassium 4.5 mmol/L (3.3-5.1); Sodium 136 mmol/L (135-145); Total Protein 7.8 g/dL (6.5-8.0)
--- NOTE | 2023-01-20 10:57 | PHA.MEDREC ---
Pharmacy Consult ? Medication Reconciliation Pharmacy has completed the medication reconciliation. LIST FROM [facility]
[2023-01-20 10:59] LABS: B Type Natriuretic Peptide 359 pg/mL (<100)
[2023-01-20 11:00] LABS: Troponin-I High Sensitivity 4.4 ng/L (<3.5-35.0)
[2023-01-20 11:05] LABS: SLIDE REVIEW VERIFIED
[2023-01-20 11:19] LABS: Influenza A PCR NEGATIVE (Negative); Influenza B PCR NEGATIVE (Negative); Resp Syncy Virus RNA Qual PCR NEGATIVE (Negative); SARS COV2 PCR INHOUSE NEGATIVE (Negative)
--- NOTE | 2023-01-20 11:40 | PC.NURSE ---
marley lloyd aware only able to obtain uc not ua as pt was incontinent- placed [place] cath on. bladder scanned 84cc. marley lloyd notified to hold off strt cath for ua.
[2023-01-20 14:11] LABS: Appearance Urine Turbid; Color Urine Yellow; Glucose Urine UA Negative (Negative); Leukocyte Esterase Urine Large (3+) (Negative); Nitrite Urine Negative (Negative); PH 6.5 (5.0-9.0); Specific Gravity - Urine 1.015 (1.005-1.025); UMIC TRIGGER UACC YES; Urine Blood Moderate (2+) (Negative); Urine Ketones Negative (Negative); Urine Protein 100 (2+) mg/dL (Neg-Trace)
[2023-01-20 14:13] LABS: Bacteria Urine 4+ (None Seen); Squamous Epithelial Cell Urine 0-2 /HPF (0-2); UACC Culture Trigger YES; WBC Urine >50 /HPF (0-5)
--- NOTE | 2023-01-20 15:21 | P.HPHOSP_ITS ---
History of Present Illness Date of Service: 01/20/23 Attending physician on admission: [facility] Chief Complaint: lethargy, weakness, fevers 87-year-old male with history of chronic atrial fibrillation not on anticoagulation, unspecified macular degeneration, hypertension, hyperlipidemia, BPH, Alzheimer's dementia, major depressive disorder presented [facility] the ED [facility] for evaluation of low-grade fevers, lethargy/generalized weakness, and tachycardia noted this morning at facility. The patient is a limited historian secondary to his Alzheimer's dementia but is able to tell me he denies any abdominal pain, nausea, vomiting, dysuria, hematuria, increased urinary frequency, urgency, diarrhea, lightheadedness, shortness of breath, or chest pain. He was recently discharged from our facility on 12/12 due to hypotension associated with UTI. On arrival, patient febrile to 102.6 and tachycardic to 120, noted to be in atrial fibrillation with RVR. There is no hypoxia or hypotension. Fever resolved 975 mg acetaminophen and heart rate return to high 90s following 1 L IV NS. He does have a leukocytosis of 18.1. Stable normocytic anemia with H/H 13.4/41.1%. Renal function is baseline, electrolyte levels are normal, glucose 121. Lactic acid 1.7. Total bilirubin 1.1, direct bilirubin 0.6, hepatic function otherwise normal. Troponin 4.4. BNP 359. Urinalysis significant for 3+ leukocytes, negative nitrites, 2+ blood, positive urinary sediment, 4+ bacteria. Negative for influenza, COVID-19, RSV. Chest x-ray shows mild cardiomegaly with increased pulmonary vascular markings likely due to chronic interstitial lung changes similar to prior studies. EKG did show atrial fibrillation with RVR, rate 121, no ST/T-wave abnormality. In addition to IV fluids and Tylenol, patient was also given 1 g IV ceftriaxone. Patient will be admitted for further management of UTI with sepsis and atrial fibrillation with RVR. Review of Systems 2 Review of Systems: General: No malaise, unintentional weight loss. +fevers, +chills, +fatigue, +general weakness HEENT: No sore throat, nasal congestion, rhinorrhea, sinus pain, ear pain Cardiovascular: No chest pain, palpitations, or leg edema Respiratory: No shortness of breath, wheezing, cough GI: No abdominal pain, nausea, vomiting, diarrhea : No dysuria, hematuria, increased urinary frequency, decreased urinary output MSK: No myalgia, back pain Neuro: No headaches, focal weakness, paresthesias Skin: No rashes or lesions [facility] Medical History Unspecified macular degeneration Primary osteoarthritis, left shoulder Pain in left shoulder Mild cognitive impairment of uncertain or unknown etiology Localized edema Edema, unspecified Feeling of incomplete bladder emptying Personal history of urinary (tract) infections Personal history of COVID-19 Squamous cell carcinoma of skin of scalp and neck Alcohol abuse, uncomplicated Bilateral primary osteoarthritis of knee Major depressive disorder, single episode, unspecified Dementia without behavioral disturbance Alzheimer's disease with late onset Chronic atrial fibrillation BPH (benign prostatic hyperplasia) HTN (hypertension) HLD (hyperlipidemia) Family History Father No problems noted. Mother No problems noted. 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 Other[facility] Unable to assess alcohol history related to: Unknown Alcohol intake: former Patient Tobacco Use Status: Never used Tobacco Smoked in Last 30 Days: No Use of substances other than those prescribed or required for medical reasons: No Have you been hit, kicked, punched, or otherwise hurt by someone within the past year? If so, by whom?: No Is there a partner from a previous relationship who is making you feel unsafe now?: No Are you made to feel afraid or neglected: No Advance Directives: Yes Advance Directives on File: Yes Advance Directives Date on File: 12/10/22 Do you have thoughts of harming others: None Do you have a plan to hurt others: No Plan Nutrition Risks: Dental problems and Difficulty chewing service: Yes Meds Allergies Allergy/AdvReac Type Severity Reaction Status Date / Time terazosin Allergy Unknown Unknown Verified 12/10/22 14:23 Active Medications: Current Medications Acetaminophen (Acetaminophen 325 Mg Tablet) 650 mg PO Q6H PRN PRN Reason: Pain, Mild (Pain Scale 1-3) Amlodipine Besylate (Amlodipine Besylate 5 Mg Tablet) 5 mg PO DAILY [facility]; Protocol Aspirin (Aspirin Enteric Coated 81 Mg Tablet.Dr) 81 mg PO DAILY [facility] Clonidine HCl (Clonidine Hcl 0.2 Mg Tablet) 0.4 mg PO DAILY [facility]; Protocol Docusate Sodium (Docusate Sodium 100 Mg Capsule) 100 mg PO BID@0900,1700 [facility] Enoxaparin Sodium (Enoxaparin Sodium 40 Mg/0.4 Ml Syringe) 40 mg SUBCUT Q24H [facility] Finasteride (Finasteride 5 Mg Tablet) 5 mg PO DAILY [facility] Folic Acid (Folic Acid 1 Mg Tablet) 1 mg PO DAILY [facility] Furosemide (Furosemide 20 Mg Tablet) 20 mg PO DAILY [facility]; Protocol Ceftriaxone Sodium 1 gm/ (Sodium Chloride) 50 mls @ 100 mls/hr IV Q24H [facility] Lisinopril (Lisinopril 40 Mg Tablet) 40 mg PO DAILY [facility]; Protocol Melatonin (Melatonin 3 Mg Tablet) 3 mg PO BEDTIME PRN PRN Reason: Insomnia Metoprolol Tartrate (Metoprolol Tartrate 25 Mg Tablet) 25 mg PO BID [facility]; Protocol Non-Formulary Medication (Lidocaine) 1 patch TOPICAL DAILY [facility] Non-Formulary Medication (Simvastatin) 20 mg PO BEDTIME [facility] Ondansetron HCl (Ondansetron Hcl 4 Mg/2 Ml Vial) 4 mg IVPUSH Q8H PRN PRN Reason: Nausea and Vomiting Polyethylene Glycol (Polyethylene Glycol 3350 17 Gm Powd.Pack) 17 gm PO Q2D [facility] Potassium Chloride (Potassium Chloride Er 20 Meq Tab.Er.Prt) 20 meq PO DAILY [facility] Senna (Sennosides 8.6 Mg Tablet) 17.2 mg PO BEDTIME PRN PRN Reason: Constipation Sertraline HCl (Sertraline Hcl 50 Mg Tablet) 50 mg PO DAILY [facility] Sodium Chloride (0.9 % Sodium Chloride Flush 3 Ml Syringe) 3 ml IVFLUSH QSHIFT [facility] Tamsulosin HCl (Tamsulosin Hcl 0.4 Mg Capsule) 0.4 mg PO BEDTIME [facility] Home Medications Medication Instructions Recorded Confirmed Last Taken Type sertraline 50 mg tablet 50 mg PO DAILY 10/21/20 01/20/23 01/19/23 History acetaminophen 325 mg tablet 650 mg PO TID 04/17/22 01/20/23 01/19/23 History aspirin 81 mg tablet,delayed 81 mg PO DAILY 04/17/22 01/20/23 01/19/23 History release docusate sodium 100 mg capsule 100 mg PO BID@0900,1700 04/17/22 01/20/23 01/19/23 History folic acid 1 mg tablet 1 mg PO DAILY 04/17/22 01/20/23 01/19/23 History polyethylene glycol 3350 17 gram 17 g PO Q2D 04/17/22 01/20/23 01/18/23 History oral powder packet tamsulosin 0.4 mg capsule 0.4 mg PO BEDTIME 04/17/22 01/20/23 01/19/23 History finasteride 5 mg tablet 5 mg PO DAILY 09/22/22 01/20/23 01/19/23 History lidocaine 5 % topical patch 1 patch topical DAILY shoulder pain 09/22/22 01/20/23 01/19/23 History metoprolol tartrate 25 mg tablet 25 mg PO BID 09/22/22 01/20/23 01/19/23 History simvastatin 20 mg tablet 20 mg PO BEDTIME 09/22/22 01/20/23 01/19/23 History amlodipine 5 mg tablet 5 mg PO DAILY 01/20/23 01/20/23 01/19/23 History clonidine HCl 0.2 mg tablet 0.4 mg PO DAILY 01/20/23 01/20/23 01/19/23 History furosemide 40 mg tablet 20 mg PO DAILY 01/20/23 01/20/23 01/19/23 History lisinopril 40 mg tablet 40 mg PO DAILY 01/20/23 01/20/23 01/20/23 History potassium chloride 20 mEq 20 meq PO DAILY 01/20/23 01/20/23 01/19/23 History tablet,extended release Physical Exam 2 Vital Signs and Narrative: Vital Signs: Last Vital Signs Temp 99.4 F 01/20/23 14:00 Pulse 79 01/20/23 14:50 Resp 16 01/20/23 14:50 BP 122/59 L 01/20/23 14:50 Pulse Ox 97 01/20/23 14:50 O2 Del Method Room Air 01/20/23 14:50 BMI result Body Mass Index 34.1 Constitutional - Awake and Alert, No apparent distress Eyes - PERRLA, EOMI Cardiovascular - S1S2, RRR, No edema Respiratory - Normal lung expansion, Normal respiratory effort, No respiratory distress, CTA bilaterally Gastrointestinal - NT / ND; +BS; No rebound or guarding - No CVA tenderness Extremities - no calf tenderness bilaterally, no swelling Skin - Warm/Dry Neurological - Alert & oriented to self and place only Psychological - Appropriate affect Results Labs 01/21/23 06:15 01/21/23 06:15 Labs: Laboratory Results - last 24 hr 01/20/23 01/20/23 01/20/23 10:19 10:30 10:31 MCV 93.8 MCH 30.6 MCHC 32.6 RDW 13.9 Plt Count 297 MPV 9.3 L Immature Gran % (Auto) 0.7 H Neut % (Auto) 84.2 H Lymph % (Auto) 4.5 L [place] % (Auto) 10.1 Eos % (Auto) 0.1 Baso % (Auto) 0.4 Lymph # (Auto) 0.8 L [place] # (Auto) 1.8 H Eos # (Auto) 0.0 Baso # (Auto) 0.1 Abs Immat Gran (auto) 0.12 H Absolute Neuts (auto) 15.2 H Absolute Nucleated RBC 0.000 Nucleated RBC % (auto) 0.0 Smear Tech's Comments VERIFIED PT 14.3 H INR 1.2 H Anion Gap 13 Estim Creat Clear Calc 90.1 Estimated GFR > 60 Random Glucose 123 H Lactic Acid 1.7 Calcium 9.2 Magnesium 1.8 Total Bilirubin 1.1 H Direct Bilirubin 0.6 H AST 14 ALT 14 Alkaline Phosphatase 85 B-Natriuretic Peptide 359 H Total Protein 7.8 Albumin 3.6 Urine Color Urine Appearance Urine pH Ur Specific [place] Urine Protein Urine Glucose (UA) Urine Ketones Urine Blood Urine Nitrite Ur Leukocyte Esterase Urine RBC Urine WBC Ur Squamous Epith Cells Urine Bacteria Hyaline Casts Influenza Type A (PCR) NEGATIVE Influenza Type B (PCR) NEGATIVE RSV RNA Qual (PCR) NEGATIVE SARS-CoV-2 RNA (RT-PCR) NEGATIVE 01/20/23 14:02 MCV MCH MCHC RDW Plt Count MPV Immature Gran % (Auto) Neut % (Auto) Lymph % (Auto) [place] % (Auto) Eos % (Auto) Baso % (Auto) Lymph # (Auto) [place] # (Auto) Eos # (Auto) Baso # (Auto) Abs Immat Gran (auto) Absolute Neuts (auto) Absolute Nucleated RBC Nucleated RBC % (auto) Smear Tech's Comments PT INR Anion Gap Estim Creat Clear Calc Estimated GFR Random Glucose Lactic Acid Calcium Magnesium Total Bilirubin Direct Bilirubin AST ALT Alkaline Phosphatase B-Natriuretic Peptide Total Protein Albumin Urine Color Yellow Urine Appearance Turbid Urine pH 6.5 Ur Specific [place] 1.015 Urine Protein 100 (2+) H Urine Glucose (UA) Negative Urine Ketones Negative Urine Blood Moderate (2+) H Urine Nitrite Negative Ur Leukocyte Esterase Large (3+) H Urine RBC 11-20 H Urine WBC >50 H Ur Squamous Epith Cells 0-2 Urine Bacteria 4+ Hyaline Casts 3-5 Influenza Type A (PCR) Influenza Type B (PCR) RSV RNA Qual (PCR) SARS-CoV-2 RNA (RT-PCR) Imaging Radiologist's Impressions: Impressions Chest X-Ray 01/20/23 09:45 IMPRESSION: Mild cardiomegaly with increased pulmonary vascular markings likely chronic interstitial lung changes. Similar findings were seen on 12/10/2022. Assessment and Plan (1) Chronic atrial fibrillation with RVR: Status: Acute (2) Sepsis: Status: Acute (3) Acute UTI: Status: Acute Plan 87-year-old male with history of chronic atrial fibrillation not on anticoagulation, unspecified macular degeneration, hypertension, hyperlipidemia, BPH, Alzheimer's dementia, major depressive disorder admitted for UTI with sepsis and atrial fibrillation with RVR. #Acute UTI with sepsis -leukocytosis of 18.1, tachycardic, febrile to 102.6. Lactic acid normal, no end-organ damage or hypotension. No severe sepsis/shock -UA with 3+ leukocytes, negative nitrites, 2+ blood, positive urinary sediment, 4+ bacteria -1 g IV ceftriaxone (initiated 01/20) -follow CBC, cultures # chronic atrial fibrillation with RVR-likely secondary to infection as above -rate controlled on admission ranging 79-90s with IVF -Not on AC, continue asa -continue metoprolol for rate control -cardiac diet -monitor on telemetry # hypertension -blood pressure reasonably controlled -continue metoprolol, lisinopril, furosemide, amlodipine # unspecified congestive heart failure -patient euvolemic appearing on exam -BNP elevated at 359, likely secondary to AFib with RVR -continue p.o. diuretics # hyperlipidemia -continue statin # Alzheimer's dementia with mood disturbance -mentation appears baseline -continue home meds # BPH -continue Flomax DVT prophylaxis-Lovenox Do not intubate Given patient's sepsis secondary to urinary tract infection, patient will require inpatient stay of at least 2 midnights for IV antibiotics and close monitoring of vital signs to prevent decompensation and progression to severe sepsis or septic shock. He will also require cardiac monitoring given atrial fibrillation with RVR though rates have improved. Quality Stroke Does the patient have a stroke diagnosis?: No VTE Prior VTE?: No VTE Risk Level:: Medical - moderate - high VTE Device Contraindication: Treatment Not Indicated VTE Drug Contraindication: N/A - Med Ordered
[2023-01-20] MEDS: Acetaminophen 325 MG TABLET 650 MG PO (18:30)
[2023-01-20] MEDS: Enoxaparin Sodium 40 MG/0.4 ML SYRINGE SUBCUT (18:30)
--- NOTE | 2023-01-20 18:33 | PC.NURSE ---
marley rizvi made aware tachy now hr 120-130s, shivering so i took rectal temp 101.6 gave tylenol no other distress. holding stool softener multiple soft bm
[2023-01-20] MEDS: dilTIAZem HCL 50 MG/10 ML VIAL 10 MG IVPUSH (19:03)
[2023-01-20] MEDS: Atorvastatin Calcium 10 MG TABLET PO (21:31)
[2023-01-20] MEDS: Metoprolol Tartrate 25 MG TABLET PO (21:31)
[2023-01-20] MEDS: Tamsulosin HCL 0.4 MG CAPSULE PO (21:31)
[2023-01-21] VITALS (8 sets, daily range): BP systolic 97–159; BP diastolic 53–87; PULSE 66–122; RESP 16–20; TEMP 36.3–37.7; O2SAT 90–96
[2023-01-21 06:59] LABS: Anion Gap 14 (12-20); Blood Urea Nitrogen 17 mg/dL (9-16); Calcium 9.6 mg/dL (8.4-10.2); Carbon Dioxide 23 mmol/L (22-29); Chloride 106 mmol/L (96-108); Estimated Glomerular Filt Rate > 60; Glucose Random 143 mg/dL (60-115); Sodium 138 mmol/L (135-145)
[2023-01-21 07:01] LABS: Basophils Percent Auto 0.2 % (0-2); Eosinophils Percent Auto 0.1 % (0-4); Hematocrit 41.6 % (42.0-52.0); Hemoglobin 13.5 g/dl (14.0-18.0); Imm Gran Abs Auto 0.08 X10*3/uL (0.00-0.03); Imm Gran Pct Auto 0.5 % (0.0-0.4); Lymphocytes Percent Auto 6.3 % (20-40); MANUAL DIFF FLAG SCAN; Mean Corpuscular HGB Conc 32.5 g/dl (31.0-36.0); Mean Corpuscular Hemoglobin 30.9 pg (27.0-33.0); Mean Corpuscular Volume 95.2 fL (80.0-98.0); Mean Platelet Volume 10.1 fL (9.4-12.4); Monocytes Absolute Auto 1.5 X10*3/uL (0.1-1.2); Monocytes Percent Auto 9.6 % (2-11); Neutrophils Absolute Auto 13.4 x10*3/uL (2.0-8.3); Neutrophils Percent Auto 83.3 % (45-73); Platelet Count 337 X10*3/uL (160-400); Red Blood Count 4.37 X10*6/uL (4.60-5.80); Red Cell Distribution Width 14.2 % (11.0-16.0); SCAN SMEAR FLAG 1; White Blood Count 16.1 X10*3/uL (4.8-10.8)
[2023-01-21 07:49] LABS: SLIDE REVIEW VERIFIED
--- NOTE | 2023-01-21 07:49 | P.PNIM_ITS ---
Subjective Subjective Date of Service: 01/22/23 Interval History: f/u on sepsis d/t UTI, AFIB with RVR Overall making progress, fever resolved, tachycardia persists, WBC trending down Physical Exam 2 Vital Signs: Vital Signs: Last Vital Signs Temp 99.8 F 01/21/23 04:46 Pulse 122 H 01/21/23 04:46 Resp 18 01/21/23 04:46 BP 159/85 H 01/21/23 04:46 Pulse Ox 96 01/21/23 04:46 O2 Del Method Room Air 01/21/23 04:46 BMI result Body Mass Index 34.1 Const: Other: Constitutional - Awake and Alert, No distress Cardiovascular - S1S2, RRR, No edema Respiratory - Normal lung expansion, Normal respiratory effort, No respiratory distress, CTA bilaterally Gastrointestinal - NT / ND; +BS; No rebound or guarding - No CVA tenderness Extremities - no calf tenderness bilaterally, no swelling Skin - Warm/Dry Neurological - Alert & oriented to self and place only Psychological - Appropriate affect Objective Data Active Medications Acetaminophen (Acetaminophen 325 Mg Tablet) 650 mg PO Q6H PRN PRN Reason: Pain, Mild (Pain Scale 1-3) Last Admin: 01/20/23 18:30 Dose: 650 mg Documented By: OLIVIA Amlodipine Besylate (Amlodipine Besylate 5 Mg Tablet) 5 mg PO DAILY [facility]; Protocol Aspirin (Aspirin Enteric Coated 81 Mg Tablet.Dr) 81 mg PO DAILY [facility] Atorvastatin Calcium (Atorvastatin Calcium 10 Mg Tablet) 10 mg PO BEDTIME [facility] Last Admin: 01/20/23 21:31 Dose: 10 mg Documented By: CHENCHO Clonidine HCl (Clonidine Hcl 0.2 Mg Tablet) 0.4 mg PO DAILY [facility]; Protocol Docusate Sodium (Docusate Sodium 100 Mg Capsule) 100 mg PO BID@0900,1700 [facility] Last Admin: 01/20/23 18:35 Dose: Not Given Documented By: OLIVIA Non-Admin Reason: mult soft bm's- pa aware Enoxaparin Sodium (Enoxaparin Sodium 40 Mg/0.4 Ml Syringe) 40 mg SUBCUT Q24H [facility] Last Admin: 01/20/23 18:30 Dose: 40 mg Documented By: OLIVIA Finasteride (Finasteride 5 Mg Tablet) 5 mg PO DAILY [facility] Folic Acid (Folic Acid 1 Mg Tablet) 1 mg PO DAILY [facility] Furosemide (Furosemide 20 Mg Tablet) 20 mg PO DAILY [facility]; Protocol Ceftriaxone Sodium 1 gm/ (Sodium Chloride) 50 mls @ 100 mls/hr IV Q24H [facility] Lidocaine (Lidocaine 4 % Patch Adh..Patch) 1 patch TRANSDERMA DAILY [facility] Lisinopril (Lisinopril 40 Mg Tablet) 40 mg PO DAILY [facility]; Protocol Melatonin (Melatonin 3 Mg Tablet) 3 mg PO BEDTIME PRN PRN Reason: Insomnia Metoprolol Tartrate (Metoprolol Tartrate 25 Mg Tablet) 25 mg PO BID [facility]; Protocol Last Admin: 01/20/23 21:31 Dose: 25 mg Documented By: CHENCHO Ondansetron HCl (Ondansetron Hcl 4 Mg/2 Ml Vial) 4 mg IVPUSH Q8H PRN PRN Reason: Nausea and Vomiting Polyethylene Glycol (Polyethylene Glycol 3350 17 Gm Powd.Pack) 17 gm PO Q2D [facility] Potassium Chloride (Potassium Chloride Er 20 Meq Tab.Er.Prt) 20 meq PO DAILY [facility] Senna (Sennosides 8.6 Mg Tablet) 17.2 mg PO BEDTIME PRN PRN Reason: Constipation Sertraline HCl (Sertraline Hcl 50 Mg Tablet) 50 mg PO DAILY [facility] Sodium Chloride (0.9 % Sodium Chloride Flush 3 Ml Syringe) 3 ml IVFLUSH QSHIFT [facility] Last Admin: 01/21/23 01:14 Dose: Not Given Documented By: CHENCHO Non-Admin Reason: Previously Administered Tamsulosin HCl (Tamsulosin Hcl 0.4 Mg Capsule) 0.4 mg PO BEDTIME [facility] Last Admin: 01/20/23 21:31 Dose: 0.4 mg Documented By: CHENCHO Labs 01/22/23 08:46 01/22/23 08:46 Labs: Laboratory Results - last 24 hr 01/20/23 01/20/23 01/20/23 10:19 10:30 10:31 MCV 93.8 MCH 30.6 MCHC 32.6 RDW 13.9 Plt Count 297 MPV 9.3 L Immature Gran % (Auto) 0.7 H Neut % (Auto) 84.2 H Lymph % (Auto) 4.5 L [place] % (Auto) 10.1 Eos % (Auto) 0.1 Baso % (Auto) 0.4 Lymph # (Auto) 0.8 L [place] # (Auto) 1.8 H Eos # (Auto) 0.0 Baso # (Auto) 0.1 Abs Immat Gran (auto) 0.12 H Absolute Neuts (auto) 15.2 H Absolute Nucleated RBC 0.000 Nucleated RBC % (auto) 0.0 Smear Tech's Comments VERIFIED PT 14.3 H INR 1.2 H Anion Gap 13 Estim Creat Clear Calc 90.1 Estimated GFR > 60 Random Glucose 123 H Lactic Acid 1.7 Calcium 9.2 Magnesium 1.8 Total Bilirubin 1.1 H Direct Bilirubin 0.6 H AST 14 ALT 14 Alkaline Phosphatase 85 B-Natriuretic Peptide 359 H Total Protein 7.8 Albumin 3.6 Urine Color Urine Appearance Urine pH Ur Specific [place] Urine Protein Urine Glucose (UA) Urine Ketones Urine Blood Urine Nitrite Ur Leukocyte Esterase Urine RBC Urine WBC Ur Squamous Epith Cells Urine Bacteria Hyaline Casts Influenza Type A (PCR) NEGATIVE Influenza Type B (PCR) NEGATIVE RSV RNA Qual (PCR) NEGATIVE SARS-CoV-2 RNA (RT-PCR) NEGATIVE 01/20/23 01/21/23 14:02 06:15 MCV 95.2 MCH 30.9 MCHC 32.5 RDW 14.2 Plt Count 337 MPV 10.1 Immature Gran % (Auto) Neut % (Auto) Lymph % (Auto) [place] % (Auto) Eos % (Auto) Baso % (Auto) Lymph # (Auto) [place] # (Auto) Eos # (Auto) Baso # (Auto) Abs Immat Gran (auto) Absolute Neuts (auto) Absolute Nucleated RBC Nucleated RBC % (auto) Smear Tech's Comments PT INR Anion Gap 14 Estim Creat Clear Calc 86.0 Estimated GFR > 60 Random Glucose 143 H Lactic Acid Calcium 9.6 Magnesium Total Bilirubin Direct Bilirubin AST ALT Alkaline Phosphatase B-Natriuretic Peptide Total Protein Albumin Urine Color Yellow Urine Appearance Turbid Urine pH 6.5 Ur Specific [place] 1.015 Urine Protein 100 (2+) H Urine Glucose (UA) Negative Urine Ketones Negative Urine Blood Moderate (2+) H Urine Nitrite Negative Ur Leukocyte Esterase Large (3+) H Urine RBC 11-20 H Urine WBC >50 H Ur Squamous Epith Cells 0-2 Urine Bacteria 4+ Hyaline Casts 3-5 Influenza Type A (PCR) Influenza Type B (PCR) RSV RNA Qual (PCR) SARS-CoV-2 RNA (RT-PCR) Assessment and Plan (1) Acute UTI: Status: Acute (2) Sepsis: Status: Acute (3) Chronic atrial fibrillation with RVR: Status: Acute Plan 87-year-old male with history of chronic atrial fibrillation not on anticoagulation, unspecified macular degeneration, hypertension, hyperlipidemia, BPH, Alzheimer's dementia, major depressive disorder admitted for UTI with sepsis and atrial fibrillation with RVR. #Acute UTI with sepsis, remains septic with increased WBC, tachycardia. Cultures are pending. Fever resolved. Continue IV Ceftriaxone started on 01/20, follow cultures. # chronic atrial fibrillation with RVR-likely secondary to infection as above, rate is variable presently 120, goal of < 100, increase metoprolol to 50 mg twice and continue monitoring and if needed get cardiology to help. Not on AC, continue ASA # hypertension--BP on higher side, increased metoprolol as above, continue lisinopril, furosemide, amlodipine # unspecified congestive heart failure, compensated, continue home dose of Lasix # hyperlipidemia -continue statin # Alzheimer's dementia with mood disturbance, continue meds # BPH -continue Flomax DVT prophylaxis-Lovenox Do not intubate need for inpt: given sepsis with febrile UTI and morbidities and risks of deterioration quickly, IV Abx is standard of care Quality Stroke Does the patient have a stroke diagnosis?: No VTE Prior VTE?: No VTE Risk Level:: Medical - moderate - high VTE Device Contraindication: Treatment Not Indicated VTE Drug Contraindication: N/A - Med Ordered
--- NOTE | 2023-01-21 08:58 | MHC.CM.PN ---
IMM 01/21/23 reviewed with HCP and sent in mail. Pt resides at [facility] and the DC plan is for him to return there. CM will follow and assist with DC planning.
[2023-01-21] MEDS: cefTRIAXone sodium 1 GM in 0.9 % Sodium Chloride 50 ML IV (09:17)
[2023-01-21] MEDS: Lidocaine 4 % Patch ADH..PATCH 1 PATCH TRANSDERMA (09:36)
[2023-01-21] MEDS: Aspirin Enteric Coated 81 MG TABLET.DR PO (09:37)
[2023-01-21] MEDS: Metoprolol Tartrate 50 MG TABLET PO ×2 (09:37→21:14)
[2023-01-21] MEDS: Furosemide 20 MG TABLET PO (09:37)
[2023-01-21] MEDS: Docusate Sodium 100 MG CAPSULE PO ×2 (09:37→16:40)
[2023-01-21] MEDS: Finasteride 5 MG TABLET PO (09:37)
[2023-01-21] MEDS: amLODIPine Besylate 5 MG TABLET PO (09:37)
[2023-01-21] MEDS: Folic Acid 1 MG TABLET PO (09:37)
[2023-01-21] MEDS: Sertraline HCL 50 MG TABLET PO (09:38)
[2023-01-21] MEDS: lisinopriL 40 MG TABLET PO (09:38)
[2023-01-21] MEDS: Potassium Chloride ER 20 MEQ TAB.ER.PRT PO (09:38)
[2023-01-21] MEDS: 0.9 % Sodium Chloride Flush 3 ML SYRINGE IVFLUSH ×2 (09:38→16:40)
[2023-01-21] MEDS: cloNIDine HCL 0.2 MG TABLET 0.4 MG PO (11:58)
[2023-01-21] MEDS: polyethylene glycoL 3350 17 GM POWD.PACK PO (11:58)
[2023-01-21] MEDS: Enoxaparin Sodium 40 MG/0.4 ML SYRINGE SUBCUT (16:40)
[2023-01-21] MEDS: Tamsulosin HCL 0.4 MG CAPSULE PO (21:14)
[2023-01-21] MEDS: Atorvastatin Calcium 10 MG TABLET PO (21:14)
[2023-01-22 04:00] VITALS: BP 135/75; PULSE 80; RESP 18; TEMP 37.1; O2SAT 94
[2023-01-22 07:33] VITALS: BP 134/67; PULSE 75; RESP 20; TEMP 36.1; O2SAT 95
[2023-01-22] MEDS: Docusate Sodium 100 MG CAPSULE PO ×2 (08:04→17:55)
[2023-01-22] MEDS: Finasteride 5 MG TABLET PO (08:04)
[2023-01-22] MEDS: Potassium Chloride ER 20 MEQ TAB.ER.PRT PO (08:05)
[2023-01-22] MEDS: 0.9 % Sodium Chloride Flush 3 ML SYRINGE IVFLUSH ×3 (08:05→21:26)
[2023-01-22] MEDS: Sertraline HCL 50 MG TABLET PO (08:05)
[2023-01-22] MEDS: lisinopriL 40 MG TABLET PO (08:05)
[2023-01-22] MEDS: Metoprolol Tartrate 50 MG TABLET PO ×2 (08:05→23:13)
[2023-01-22] MEDS: amLODIPine Besylate 5 MG TABLET PO (08:05)
[2023-01-22] MEDS: Folic Acid 1 MG TABLET PO (08:05)
[2023-01-22] MEDS: Aspirin Enteric Coated 81 MG TABLET.DR PO (08:05)
[2023-01-22] MEDS: Furosemide 20 MG TABLET PO (08:05)
[2023-01-22 09:18] LABS: Hematocrit 39.6 % (42.0-52.0); Hemoglobin 12.7 g/dl (14.0-18.0); Mean Corpuscular HGB Conc 32.1 g/dl (31.0-36.0); Mean Corpuscular Hemoglobin 30.5 pg (27.0-33.0); Mean Platelet Volume 10.1 fL (9.4-12.4); Platelet Count 297 X10*3/uL (160-400); Red Blood Count 4.17 X10*6/uL (4.60-5.80); Red Cell Distribution Width 14.2 % (11.0-16.0); White Blood Count 11.2 X10*3/uL (4.8-10.8)
[2023-01-22 09:29] LABS: Anion Gap 11 (12-20); Blood Urea Nitrogen 17 mg/dL (9-16); Calcium 9.3 mg/dL (8.4-10.2); Carbon Dioxide 25 mmol/L (22-29); Chloride 105 mmol/L (96-108); Creatinine Clr Calc Pharmacy 98.1; Estimated Glomerular Filt Rate > 60; Glucose Random 117 mg/dL (60-115); Potassium 4.2 mmol/L (3.3-5.1); Sodium 137 mmol/L (135-145)
[2023-01-22] MEDS: cloNIDine HCL 0.2 MG TABLET 0.4 MG PO (10:22)
[2023-01-22] MEDS: Lidocaine 4 % Patch ADH..PATCH 1 PATCH TRANSDERMA (10:23)
[2023-01-22] MEDS: cefTRIAXone sodium 1 GM in 0.9 % Sodium Chloride 50 ML IV (10:23)
[2023-01-22 12:00] VITALS: BP 118/66; PULSE 66; RESP 18; TEMP 36.2; O2SAT 98
--- NOTE | 2023-01-22 14:31 | P.PNIM_ITS ---
Subjective Subjective Date of Service: 01/22/23 Interval History: f/u on sepsis d/t UTI, AFIB with RVR He looks good today, tachycardia resolved, urine culture gram negative rods, wbc is nearly normal Physical Exam 2 Vital Signs: Vital Signs: Last Vital Signs Temp 97.1 F 01/22/23 12:00 Pulse 66 01/22/23 12:00 Resp 18 01/22/23 12:00 BP 118/66 01/22/23 12:00 Pulse Ox 98 01/22/23 12:00 O2 Del Method Room Air 01/22/23 12:00 BMI result Body Mass Index 34.1 Const: Other: Constitutional - Awake and Alert, No distress Cardiovascular - S1S2, RRR, No edema Respiratory - Normal lung expansion, Normal respiratory effort, No respiratory distress, CTA bilaterally Gastrointestinal - NT / ND; +BS; No rebound or guarding - No CVA tenderness Extremities - no calf tenderness bilaterally, no swelling Skin - Warm/Dry Neurological - Alert & oriented to self and place only Psychological - Appropriate affect Objective Data Active Medications Acetaminophen (Acetaminophen 325 Mg Tablet) 650 mg PO Q6H PRN PRN Reason: Pain, Mild (Pain Scale 1-3) Last Admin: 01/20/23 18:30 Dose: 650 mg Documented By: OLIVIA Amlodipine Besylate (Amlodipine Besylate 5 Mg Tablet) 5 mg PO DAILY [facility]; Protocol Last Admin: 01/22/23 08:05 Dose: 5 mg Documented By: FLETCHER Aspirin (Aspirin Enteric Coated 81 Mg Tablet.) 81 mg PO DAILY [facility] Last Admin: 01/22/23 08:05 Dose: 81 mg Documented By: FLETCHER Atorvastatin Calcium (Atorvastatin Calcium 10 Mg Tablet) 10 mg PO BEDTIME [facility] Last Admin: 01/21/23 21:14 Dose: 10 mg Documented By: MICHAEL Clonidine HCl (Clonidine Hcl 0.2 Mg Tablet) 0.4 mg PO DAILY [facility]; Protocol Last Admin: 01/22/23 10:22 Dose: 0.4 mg Documented By: FLETCHER Docusate Sodium (Docusate Sodium 100 Mg Capsule) 100 mg PO BID@0900,1700 [facility] Last Admin: 01/22/23 08:04 Dose: 100 mg Documented By: FLETCHER Enoxaparin Sodium (Enoxaparin Sodium 40 Mg/0.4 Ml Syringe) 40 mg SUBCUT Q24H [facility] Last Admin: 01/21/23 16:40 Dose: 40 mg Documented By: FLETCHER Finasteride (Finasteride 5 Mg Tablet) 5 mg PO DAILY [facility] Last Admin: 01/22/23 08:04 Dose: 5 mg Documented By: FLETCHER Folic Acid (Folic Acid 1 Mg Tablet) 1 mg PO DAILY [facility] Last Admin: 01/22/23 08:05 Dose: 1 mg Documented By: FLETCHER Furosemide (Furosemide 20 Mg Tablet) 20 mg PO DAILY [facility]; Protocol Last Admin: 01/22/23 08:05 Dose: 20 mg Documented By: FLETCHER Ceftriaxone Sodium 1 gm/ (Sodium Chloride) 50 mls @ 100 mls/hr IV Q24H [facility] Last Infusion: 01/22/23 11:45 Dose: Infused Documented By: FLETCHER Lidocaine (Lidocaine 4 % Patch Adh..Patch) 1 patch TRANSDERMA DAILY [facility] Last Admin: 01/22/23 10:23 Dose: 1 patch Documented By: FLETCHER Lisinopril (Lisinopril 40 Mg Tablet) 40 mg PO DAILY [facility]; Protocol Last Admin: 01/22/23 08:05 Dose: 40 mg Documented By: FLETCHER Melatonin (Melatonin 3 Mg Tablet) 3 mg PO BEDTIME PRN PRN Reason: Insomnia Metoprolol Tartrate (Metoprolol Tartrate 50 Mg Tablet) 50 mg PO BID [facility]; Protocol Last Admin: 01/22/23 08:05 Dose: 50 mg Documented By: FLETCHER Ondansetron HCl (Ondansetron Hcl 4 Mg/2 Ml Vial) 4 mg IVPUSH Q8H PRN PRN Reason: Nausea and Vomiting Polyethylene Glycol (Polyethylene Glycol 3350 17 Gm Powd.Pack) 17 gm PO Q2D [facility] Last Admin: 01/21/23 11:58 Dose: 17 gm Documented By: FLETCHER Potassium Chloride (Potassium Chloride Er 20 Meq Tab.Er.Prt) 20 meq PO DAILY [facility] Last Admin: 01/22/23 08:05 Dose: 20 meq Documented By: FLETCHER Senna (Sennosides 8.6 Mg Tablet) 17.2 mg PO BEDTIME PRN PRN Reason: Constipation Sertraline HCl (Sertraline Hcl 50 Mg Tablet) 50 mg PO DAILY [facility] Last Admin: 01/22/23 08:05 Dose: 50 mg Documented By: FLETCHER Sodium Chloride (0.9 % Sodium Chloride Flush 3 Ml Syringe) 3 ml IVFLUSH QSHIFT [facility] Last Admin: 01/22/23 08:05 Dose: 3 ml Documented By: FLETCHER Tamsulosin HCl (Tamsulosin Hcl 0.4 Mg Capsule) 0.4 mg PO BEDTIME [facility] Last Admin: 01/21/23 21:14 Dose: 0.4 mg Documented By: MICHAEL Labs 01/22/23 08:46 01/22/23 08:46 Labs: Laboratory Results - last 24 hr 01/22/23 08:46 MCV 95.0 MCH 30.5 MCHC 32.1 RDW 14.2 Plt Count 297 MPV 10.1 Absolute Nucleated RBC 0.000 Nucleated RBC % (auto) 0.0 Anion Gap 11 L Estim Creat Clear Calc 98.1 Estimated GFR > 60 Random Glucose 117 H Calcium 9.3 Microbiology Microbiology Results: Microbiology 01/20/23 Unknown Urine Culture - Preliminary Urine clean catch - Urine womack top Gram negative marisol 01/20/23 10:19 Blood Culture - Preliminary Blood - Venous No growth after 48 hours. 01/20/23 09:56 Blood Culture - Preliminary Blood - Venous No growth after 48 hours. Assessment and Plan (1) Acute UTI: Status: Acute (2) Sepsis: Status: Acute (3) Chronic atrial fibrillation with RVR: Status: Acute Plan 87-year-old male with history of chronic atrial fibrillation not on anticoagulation, unspecified macular degeneration, hypertension, hyperlipidemia, BPH, Alzheimer's dementia, major depressive disorder admitted for UTI with sepsis and atrial fibrillation with RVR. #Acute UTI with sepsis, sepsis resolved, WBC down, tachy resolved. [place] GNR in urine, sensitivity pending. Responding to Ceftriaxone, Continue, started on 01/20 # chronic atrial fibrillation with RVR-tachycardia d/t infection, now rate controlled, continue Metoprool # hypertension--controlled, continue lisinopril, furosemide, amlodipine # unspecified congestive heart failure, compensated, continue home dose of Lasix # hyperlipidemia -continue statin # Alzheimer's dementia with mood disturbance, continue meds, presently calm # BPH -continue Flomax DVT prophylaxis-Lovenox Do not intubate need for inpt: given sepsis with febrile UTI and morbidities and risks of deterioration quickly, IV Abx is standard of care possible dc tomorrow, if culture sensitivity is known Quality Stroke Does the patient have a stroke diagnosis?: No VTE Prior VTE?: No VTE Risk Level:: Medical - moderate - high VTE Device Contraindication: Treatment Not Indicated VTE Drug Contraindication: N/A - Med Ordered
[2023-01-22 16:00] VITALS: BP 111/54; PULSE 63; RESP 18; TEMP 36.4; O2SAT 97
[2023-01-22] MEDS: Enoxaparin Sodium 40 MG/0.4 ML SYRINGE SUBCUT (17:55)
[2023-01-22 19:42] VITALS: BP 148/74; PULSE 60; RESP 17; TEMP 36.6; O2SAT 96
[2023-01-22] MEDS: Tamsulosin HCL 0.4 MG CAPSULE PO (21:26)
[2023-01-22] MEDS: Atorvastatin Calcium 10 MG TABLET PO (21:26)
[2023-01-22 22:56] VITALS: BP 139/76; PULSE 73; RESP 16; TEMP 36.2; O2SAT 99
[2023-01-23] VITALS (8 sets, daily range): BP systolic 121–169; BP diastolic 58–81; PULSE 63–78; RESP 16–20; TEMP 36.1–37; O2SAT 96–97
[2023-01-23] MEDS: lisinopriL 40 MG TABLET PO (08:43)
[2023-01-23] MEDS: amLODIPine Besylate 5 MG TABLET PO (08:43)
[2023-01-23] MEDS: Aspirin Enteric Coated 81 MG TABLET.DR PO (08:43)
[2023-01-23] MEDS: Acetaminophen 325 MG TABLET 650 MG PO (08:43)
[2023-01-23] MEDS: Sertraline HCL 50 MG TABLET PO (08:43)
[2023-01-23] MEDS: Docusate Sodium 100 MG CAPSULE PO ×2 (08:44→15:40)
[2023-01-23] MEDS: 0.9 % Sodium Chloride Flush 3 ML SYRINGE IVFLUSH ×3 (08:44→19:43)
[2023-01-23] MEDS: Folic Acid 1 MG TABLET PO (08:44)
[2023-01-23] MEDS: Metoprolol Tartrate 50 MG TABLET PO ×2 (08:44→19:42)
[2023-01-23] MEDS: Furosemide 20 MG TABLET PO (08:44)
[2023-01-23] MEDS: Finasteride 5 MG TABLET PO (08:44)
[2023-01-23] MEDS: cefTRIAXone sodium 1 GM in 0.9 % Sodium Chloride 50 ML IV (08:44)
[2023-01-23] MEDS: cloNIDine HCL 0.2 MG TABLET 0.4 MG PO (08:44)
[2023-01-23] MEDS: Lidocaine 4 % Patch ADH..PATCH 1 PATCH TRANSDERMA (08:50)
[2023-01-23] MEDS: Potassium Chloride ER 20 MEQ TAB.ER.PRT PO (08:50)
--- NOTE | 2023-01-23 13:16 | MHC.CM.PN ---
Addendum entered by Juani Mcclendon 01/23/23 14:49: [facility], [facility], and pts daughter Ree notified of cancelled D/C. Addendum entered by Juani Mcclendon 01/23/23 14:44: Per MD, D/C is cancelled due to pending urine sensitivities. Original Note: Pt is medically cleared for D/C back to [facility]. Transport booked via BLS/[facility] at 3:30pm. Pts daughter/HCP Ree updated.
--- NOTE | 2023-01-23 13:27 | P.DS_ITS ---
DS: Providers Provider Date of Service: 01/23/23 Date of admission: 01/20/23 15:22 Primary care physician: Dorian Thompson MD Consults: 01/23/23 10:57 Consult to Wound Care Routine Reason for consultation: blanchable redness coccyx DS: Diagnosis Discharge Diagnosis (1) Acute UTI: Status: Acute (2) Sepsis: Status: Acute (3) Chronic atrial fibrillation with RVR: Status: Acute DS: Summary Hospital Course Hospital Course: Chief Complaint: lethargy, weakness, fevers 87-year-old male with history of chronic atrial fibrillation not on anticoagulation, unspecified macular degeneration, hypertension, hyperlipidemia, BPH, Alzheimer's dementia, major depressive disorder presented to the ED via EMS [facility] for evaluation of low-grade fevers, lethargy/generalized weakness, and tachycardia noted this morning at facility. The patient is a limited historian secondary to his Alzheimer's dementia but is able to tell me he denies any abdominal pain, nausea, vomiting, dysuria, hematuria, increased urinary frequency, urgency, diarrhea, lightheadedness, shortness of breath, or chest pain. He was recently discharged from our facility on 12/12 due to hypotension associated with UTI. On arrival, patient febrile to 102.6 and tachycardic to 120, noted to be in atrial fibrillation with RVR. There is no hypoxia or hypotension. Fever resolved 975 mg acetaminophen and heart rate return to high 90s following 1 L IV NS. He does have a leukocytosis of 18.1. Stable normocytic anemia with H/H 13.4/41.1%. Renal function is baseline, electrolyte levels are normal, glucose 121. Lactic acid 1.7. Total bilirubin 1.1, direct bilirubin 0.6, hepatic function otherwise normal. Troponin 4.4. BNP 359. Urinalysis significant for 3+ leukocytes, negative nitrites, 2+ blood, positive urinary sediment, 4+ bacteria. Negative for influenza, COVID-19, RSV. Chest x-ray shows mild cardiomegaly with increased pulmonary vascular markings likely due to chronic interstitial lung changes similar to prior studies. EKG did show atrial fibrillation with RVR, rate 121, no ST/T-wave abnormality. In addition to IV fluids and Tylenol, patient was also given 1 g IV ceftriaxone. Patient will be admitted for further management of UTI with sepsis and atrial fibrillation with RVR. Hospital course: He presented with weakness, fever and lethargy as detailed above and work up reealed Sepsis due to UTI and afib with RVR. He was admitted for IV antibiotics and closer monitoring, #Acute UTI--He was started on Ceftriaxone with good effect, WBC trended down ,Culture has shown Proteusand Enterococcus and both are sensitive to ampicillin and therefore antibiotics changed to amoxillin and will treat for total of 10 days. Last WBC normal. # chronic atrial fibrillation with RVR-tachycardia was d/t infection, once he started antibiotic therapy RVR resolved. At baseline, he is not anticoagulated due to past bleeding issues. Normally on Metoprolol 50 bid and clonidine 0.4 mg daily. On 01/25, he developped bradycardia with HR briefly in the 20s but quickly improved to 40s, 50 and by overnight increased to 70. Metoprolol and clonidine were discontinued. And the next day Clonidine was restarted at 0. 2 mg twice a day on advise of cardiology to prevent rebound HTN from clonidine and clonidine withdrawal. Heart rate has since been in the 70. Cardiology advises that so long as HR < 110, metoprolol should not be restarted and only to be restarted if HR> 120 and in that case to be restarted at 25 mg twice daily. , # left upper extremity swelling duplex venous showed no DVT, keep left upper extremity elevated. # hypertension--controlled, continue lisinopril, furosemide, amlodipine and Clonidine. # unspecified congestive heart failure, compensated, continue home dose of Lasix. # hyperlipidemia -continue statin # Alzheimer's dementia with mood disturbance, continue meds, no acute behavioral issues noted in house. # BPH -continue Flomax [facility] Time Attestation Discharge coordination time: Greater than 30 minutes Quality: Safe Use of Opioids Does Pt have an Active Cancer Diagnosis on the Problem List?: No Quality: Stroke Does the patient have a stroke diagnosis?: No Physical Exam Vital Signs: Vital Signs: Last Vital Signs Temp 98.0 F 01/23/23 11:00 Pulse 74 01/23/23 11:00 Resp 18 01/23/23 11:00 BP 143/66 H 01/23/23 11:00 Pulse Ox 97 01/23/23 11:00 O2 Del Method Room Air 01/23/23 11:00 BMI result Body Mass Index 34.1 Const: Other: Constitutional - Awake and Alert, No distress Cardiovascular - S1S2, RRR, No edema Respiratory - Normal lung expansion, Normal respiratory effort, No respiratory distress, CTA bilaterally Gastrointestinal - NT / ND; +BS; No rebound or guarding - No CVA tenderness Extremities - no calf tenderness bilaterally, no swelling Skin - Warm/Dry Neurological - Alert & oriented to self and place only Psychological - Appropriate affect DS: Data Data Completed and Pending Labs on day of discharge: Preliminary micro results at discharge 01/20/23 Unknown Urine Culture - Preliminary Urine clean catch - Urine womack top Proteus mirabilis Enterococcus/Streptococcus sp 01/20/23 10:19 Blood Culture - Preliminary Blood - Venous No growth after 48 hours. 01/20/23 09:56 Blood Culture - Preliminary Blood - Venous No growth after 48 hours. Discharge Plan Discharge Anticipated Discharge Date/Time: 01/26/23 12:15 Patient Disposition: er SNF Discharge Diagnosis: Sepsis due to UTI, AFIB with RVR [facility] Dorian Thompson MD [Primary Care Provider] - 1 Week Discharge Medications: New clonidine HCl 0.2 mg Tablet 0.2 mg PO BID Qty: 60 0RF Protocol: Hold for SBP< HOLD for SBP < : 90 amoxicillin 500 mg Capsule 500 mg PO Q12H Qty: 16 0RF Continued sertraline 50 mg Tablet 50 mg PO DAILY furosemide 40 mg tablet 20 mg PO DAILY amlodipine 5 mg tablet 5 mg PO DAILY lisinopril 40 mg tablet 40 mg PO DAILY potassium chloride 20 mEq Tablet Extended Release 20 meq PO DAILY acetaminophen 325 mg tablet 650 mg PO TID aspirin 81 mg tablet,delayed release (DR/EC) 81 mg PO DAILY docusate sodium 100 mg capsule 100 mg PO BID@0900,1700 folic acid 1 mg tablet 1 mg PO DAILY polyethylene glycol 3350 17 gram powder in packet 17 g PO Q2D tamsulosin 0.4 mg capsule 0.4 mg PO BEDTIME finasteride 5 mg tablet 5 mg PO DAILY simvastatin 20 mg tablet 20 mg PO BEDTIME lidocaine 5 % adhesive patch,medicated 1 patch topical DAILY Rx Instructions: leave on most painful area for up to 12 hrs Discontinued clonidine HCl 0.2 mg tablet 0.4 mg PO DAILY Rx Instructions: HOLD FOR SBP < 120 metoprolol tartrate 25 mg tablet 25 mg PO BID Discharge Orders: Discharge Order (Routine); Ordered 01/26/23 Ordered By: Abraham Christopher Diet: Advance to usual diet Activity on Discharge: As tolerated Stand Alone Forms: Patient Portal Discharge page Care Plan Goals: To make full recovery from UTI noted to have bradycardia therefore metoprolol discontinued take clonidine 0.2 mg 1 tablet twice daily left upper extremity swelling due to infiltration at IV site, no DVT noted on Doppler study. Health Concerns: UTI atrial fibrilation Plan of Treatment: Take amoxicillin 500 mg 1 tablet twice daily for 8 more days Assessment: as above Discharge Date/Time: 01/26/23 14:38
--- NOTE | 2023-01-23 14:31 | PC.NURSE ---
Report given to [facility] at [facility] assuming care of patient upon discharge at this time.
--- NOTE | 2023-01-23 14:43 | HO.PM.IMPN ---
Subjective Subjective Date of Service: 01/23/23 Interval History: f/u on sepsis d/t UTI, AFIB with RVR doing well, urine culture proteus, and enteroccusus/strep species no sensitivity yet Physical Exam Vital Signs: Vital Signs: Last Vital Signs Temp 98.0 F 01/23/23 11:00 Pulse 74 01/23/23 11:00 Resp 18 01/23/23 11:00 BP 143/66 H 01/23/23 11:00 Pulse Ox 97 01/23/23 11:00 O2 Del Method Room Air 01/23/23 11:00 BMI result Body Mass Index 34.1 Const: Other: Constitutional - Awake and Alert, No distress Cardiovascular - S1S2, RRR, No edema Respiratory - Normal lung expansion, Normal respiratory effort, No respiratory distress, CTA bilaterally Gastrointestinal - NT / ND; +BS; No rebound or guarding - No CVA tenderness Extremities - no calf tenderness bilaterally, no swelling Skin - Warm/Dry Neurological - Alert & oriented to self and place only Psychological - Appropriate affect Objective Data Active Medications Acetaminophen (Acetaminophen 325 Mg Tablet) 650 mg PO Q6H PRN PRN Reason: Pain, Mild (Pain Scale 1-3) Last Admin: 01/23/23 08:43 Dose: 650 mg Documented By: JEFF Amlodipine Besylate (Amlodipine Besylate 5 Mg Tablet) 5 mg PO DAILY [facility]; Protocol Last Admin: 01/23/23 08:43 Dose: 5 mg Documented By: JEFF Aspirin (Aspirin Enteric Coated 81 Mg Tablet.) 81 mg PO DAILY [facility] Last Admin: 01/23/23 08:43 Dose: 81 mg Documented By: JEFF Atorvastatin Calcium (Atorvastatin Calcium 10 Mg Tablet) 10 mg PO BEDTIME [facility] Last Admin: 01/22/23 21:26 Dose: 10 mg Documented By: ANNETTE Clonidine HCl (Clonidine Hcl 0.2 Mg Tablet) 0.4 mg PO DAILY [facility]; Protocol Last Admin: 01/23/23 08:44 Dose: 0.4 mg Documented By: JEFF Docusate Sodium (Docusate Sodium 100 Mg Capsule) 100 mg PO BID@0900,1700 [facility] Last Admin: 01/23/23 08:44 Dose: 100 mg Documented By: JEFF Enoxaparin Sodium (Enoxaparin Sodium 40 Mg/0.4 Ml Syringe) 40 mg SUBCUT Q24H [facility] Last Admin: 01/22/23 17:55 Dose: 40 mg Documented By: FLETCHER Finasteride (Finasteride 5 Mg Tablet) 5 mg PO DAILY [facility] Last Admin: 01/23/23 08:44 Dose: 5 mg Documented By: JEFF Folic Acid (Folic Acid 1 Mg Tablet) 1 mg PO DAILY [facility] Last Admin: 01/23/23 08:44 Dose: 1 mg Documented By: JEFF Furosemide (Furosemide 20 Mg Tablet) 20 mg PO DAILY [facility]; Protocol Last Admin: 01/23/23 08:44 Dose: 20 mg Documented By: JEFF Ceftriaxone Sodium 1 gm/ (Sodium Chloride) 50 mls @ 100 mls/hr IV Q24H [facility] Last Infusion: 01/23/23 13:31 Dose: Infused Documented By: JEFF Lidocaine (Lidocaine 4 % Patch Adh..Patch) 1 patch TRANSDERMA DAILY [facility] Last Admin: 01/23/23 08:50 Dose: 1 patch Documented By: JEFF Lisinopril (Lisinopril 40 Mg Tablet) 40 mg PO DAILY [facility]; Protocol Last Admin: 01/23/23 08:43 Dose: 40 mg Documented By: JEFF Melatonin (Melatonin 3 Mg Tablet) 3 mg PO BEDTIME PRN PRN Reason: Insomnia Metoprolol Tartrate (Metoprolol Tartrate 50 Mg Tablet) 50 mg PO BID [facility]; Protocol Last Admin: 01/23/23 08:44 Dose: 50 mg Documented By: JEFF Ondansetron HCl (Ondansetron Hcl 4 Mg/2 Ml Vial) 4 mg IVPUSH Q8H PRN PRN Reason: Nausea and Vomiting Polyethylene Glycol (Polyethylene Glycol 3350 17 Gm Powd.Pack) 17 gm PO Q2D [facility] Last Admin: 01/23/23 08:49 Dose: Not Given Documented By: JEFF Non-Admin Reason: Patient Refused Potassium Chloride (Potassium Chloride Er 20 Meq Tab.Er.Prt) 20 meq PO DAILY [facility] Last Admin: 01/23/23 08:50 Dose: 20 meq Documented By: JEFF Senna (Sennosides 8.6 Mg Tablet) 17.2 mg PO BEDTIME PRN PRN Reason: Constipation Sertraline HCl (Sertraline Hcl 50 Mg Tablet) 50 mg PO DAILY [facility] Last Admin: 01/23/23 08:43 Dose: 50 mg Documented By: JEFF Sodium Chloride (0.9 % Sodium Chloride Flush 3 Ml Syringe) 3 ml IVFLUSH QSHIFT [facility] Last Admin: 01/23/23 08:44 Dose: 3 ml Documented By: JEFF Tamsulosin HCl (Tamsulosin Hcl 0.4 Mg Capsule) 0.4 mg PO BEDTIME [facility] Last Admin: 01/22/23 21:26 Dose: 0.4 mg Documented By: KARYNAJIK Labs 01/22/23 08:46 01/22/23 08:46 Microbiology Microbiology Results: Microbiology 01/20/23 Unknown Urine Culture - Preliminary Urine clean catch - Urine womack top Proteus mirabilis Enterococcus/Streptococcus sp 01/20/23 10:19 Blood Culture - Preliminary Blood - Venous No growth after 48 hours. 01/20/23 09:56 Blood Culture - Preliminary Blood - Venous No growth after 48 hours. Assessment and Plan (1) Acute UTI: Status: Acute (2) Sepsis: Status: Acute (3) Chronic atrial fibrillation with RVR: Status: Acute Plan 87-year-old male with history of chronic atrial fibrillation not on anticoagulation, unspecified macular degeneration, hypertension, hyperlipidemia, BPH, Alzheimer's dementia, major depressive disorder admitted for UTI with sepsis and atrial fibrillation with RVR. #Acute UTI with sepsis, sepsis resolved, WBC down, tachy resolved. culture proteus, seinsitivity to ceftriaxone, Enteroccus/Strep sensitivity pending, since patient is doing well on Ceftriaxone, no change at this time. # chronic atrial fibrillation with RVR-tachycardia d/t infection, now rate controlled, continue Metoprool # hypertension--controlled, continue lisinopril, furosemide, amlodipine # unspecified congestive heart failure, compensated, continue home dose of Lasix # hyperlipidemia -continue statin # Alzheimer's dementia with mood disturbance, continue meds, presently calm # BPH -continue Flomax DVT prophylaxis-Lovenox Do not intubate need for inpt: given sepsis with febrile UTI and morbidities and risks of deterioration quickly, IV Abx is standard of care possible dc tomorrow, if culture sensitivity is known Discussed with daughter Quality Stroke Does the patient have a stroke diagnosis?: No VTE Prior VTE?: No VTE Risk Level:: Medical - moderate - high VTE Device Contraindication: Treatment Not Indicated VTE Drug Contraindication: N/A - Med Ordered
[2023-01-23] MEDS: Enoxaparin Sodium 40 MG/0.4 ML SYRINGE SUBCUT (15:40)
[2023-01-23] MEDS: Tamsulosin HCL 0.4 MG CAPSULE PO (19:42)
[2023-01-23] MEDS: Atorvastatin Calcium 10 MG TABLET PO (19:42)
[2023-01-24] VITALS (7 sets, daily range): BP systolic 92–150; BP diastolic 48–82; PULSE 50–89; RESP 18–20; TEMP 36.1–36.7; O2SAT 94–97
[2023-01-24] MEDS: Folic Acid 1 MG TABLET PO (08:08)
[2023-01-24] MEDS: lisinopriL 40 MG TABLET PO (08:08)
[2023-01-24] MEDS: Finasteride 5 MG TABLET PO (08:08)
[2023-01-24] MEDS: Amoxicillin 500 MG CAPSULE PO ×2 (08:09→20:01)
[2023-01-24] MEDS: Sertraline HCL 50 MG TABLET PO (08:10)
[2023-01-24] MEDS: Metoprolol Tartrate 50 MG TABLET PO (08:10)
[2023-01-24] MEDS: cloNIDine HCL 0.2 MG TABLET 0.4 MG PO (08:10)
[2023-01-24] MEDS: Aspirin Enteric Coated 81 MG TABLET.DR PO (08:10)
[2023-01-24] MEDS: Docusate Sodium 100 MG CAPSULE PO ×2 (08:11→17:46)
[2023-01-24] MEDS: amLODIPine Besylate 5 MG TABLET PO (08:11)
[2023-01-24] MEDS: Furosemide 20 MG TABLET PO (08:11)
[2023-01-24] MEDS: Potassium Chloride ER 20 MEQ TAB.ER.PRT PO (08:11)
[2023-01-24] MEDS: 0.9 % Sodium Chloride Flush 3 ML SYRINGE IVFLUSH (08:12)
[2023-01-24] MEDS: Lidocaine 4 % Patch ADH..PATCH 1 PATCH TRANSDERMA (08:12)
[2023-01-24 09:29] LABS: Hematocrit 41.2 % (42.0-52.0); Hemoglobin 13.6 g/dl (14.0-18.0); Mean Corpuscular Hemoglobin 30.4 pg (27.0-33.0); Mean Corpuscular Volume 92.2 fL (80.0-98.0); Mean Platelet Volume 9.5 fL (9.4-12.4); Platelet Count 348 X10*3/uL (160-400); Red Blood Count 4.47 X10*6/uL (4.60-5.80); Red Cell Distribution Width 13.5 % (11.0-16.0)
[2023-01-24 09:34] LABS: Anion Gap 15 (12-20); Blood Urea Nitrogen 12 mg/dL (9-16); Calcium 9.1 mg/dL (8.4-10.2); Carbon Dioxide 24 mmol/L (22-29); Chloride 102 mmol/L (96-108); Creatinine Clr Calc Pharmacy 112.6; Estimated Glomerular Filt Rate > 60; Glucose Random 101 mg/dL (60-115); Potassium 3.8 mmol/L (3.3-5.1); Sodium 137 mmol/L (135-145)
--- NOTE | 2023-01-24 10:49 | PM.CNCAR ---
History of Present Illness History of Present Illness Date of Service: 01/24/23 Chief complaint: UTI, sepsis, afib rvr Narrative: This is a cardiology consultation regarding atrial fibrillation with slow ventricular rate. Patient himself cannot give any reasonable history. It seems that he has a history of chronic atrial fibrillation. LV mass dementia. Current admissions for UTI/sepsis. In this context, it seems that he had atrial fibrillation rapid rate on EKG and that led to change in metoprolol dose. Home dose listed to be metoprolol 25 mg b.i.d. but then he was increased to 50 mg b.i.d.. Currently his heart rate is in the 40s or so. Patient himself not able to give any history. He does not appear presyncopal or syncopal. Seems fairly comfortable in bed. Review of Systems Review of Systems: Unable to obtain review of systems due to patient's mental status. [facility] Past Medical History Medical History (Updated 01/24/23 @ 11:01 by Jerry Trejo MD) Unspecified macular degeneration Primary osteoarthritis, left shoulder Pain in left shoulder Mild cognitive impairment of uncertain or unknown etiology Localized edema Edema, unspecified Feeling of incomplete bladder emptying Personal history of urinary (tract) infections Personal history of COVID-19 Squamous cell carcinoma of skin of scalp and neck Alcohol abuse, uncomplicated Bilateral primary osteoarthritis of knee Major depressive disorder, single episode, unspecified Dementia without behavioral disturbance Alzheimer's disease with late onset Chronic atrial fibrillation BPH (benign prostatic hyperplasia) HTN (hypertension) HLD (hyperlipidemia) Family History Family History Father No problems noted. Mother No problems noted. 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 If so, by whom?: No Is there a partner from a previous relationship who is making you feel unsafe now?: No Are you made to feel afraid or neglected: No Advance Directives: Yes Advance Directives on File: Yes Advance Directives Date on File: 12/10/22 Do you have thoughts of harming others: None Do you have a plan to hurt others: No Plan Nutrition Risks: Dental problems and Difficulty chewing service: Yes Meds Allergies Allergy/AdvReac Type Severity Reaction Status Date / Time terazosin Allergy Unknown Unknown Verified 12/10/22 14:23 Active Medications: Current Medications Acetaminophen (Acetaminophen 325 Mg Tablet) 650 mg PO Q6H PRN PRN Reason: Pain, Mild (Pain Scale 1-3) Last Admin: 01/23/23 08:43 Dose: 650 mg Amlodipine Besylate (Amlodipine Besylate 5 Mg Tablet) 5 mg PO DAILY [facility]; Protocol Last Admin: 01/24/23 08:11 Dose: 5 mg Amoxicillin (Amoxicillin 500 Mg Capsule) 500 mg PO Q12H [facility] Last Admin: 01/24/23 08:09 Dose: 500 mg Aspirin (Aspirin Enteric Coated 81 Mg Tablet.Dr) 81 mg PO DAILY [facility] Last Admin: 01/24/23 08:10 Dose: 81 mg Atorvastatin Calcium (Atorvastatin Calcium 10 Mg Tablet) 10 mg PO BEDTIME [facility] Last Admin: 01/23/23 19:42 Dose: 10 mg Docusate Sodium (Docusate Sodium 100 Mg Capsule) 100 mg PO BID@0900,1700 [facility] Last Admin: 01/24/23 08:11 Dose: 100 mg Enoxaparin Sodium (Enoxaparin Sodium 40 Mg/0.4 Ml Syringe) 40 mg SUBCUT Q24H [facility] Last Admin: 01/23/23 15:40 Dose: 40 mg Finasteride (Finasteride 5 Mg Tablet) 5 mg PO DAILY [facility] Last Admin: 01/24/23 08:08 Dose: 5 mg Folic Acid (Folic Acid 1 Mg Tablet) 1 mg PO DAILY [facility] Last Admin: 01/24/23 08:08 Dose: 1 mg Furosemide (Furosemide 20 Mg Tablet) 20 mg PO DAILY [facility]; Protocol Last Admin: 01/24/23 08:11 Dose: 20 mg Sodium Chloride (Ns) 1,000 mls @ 100 mls/hr IVCONT .Q10H [facility] Lidocaine (Lidocaine 4 % Patch Adh..Patch) 1 patch TRANSDERMA DAILY [facility] Last Admin: 01/24/23 08:12 Dose: 1 patch Lisinopril (Lisinopril 40 Mg Tablet) 40 mg PO DAILY [facility]; Protocol Last Admin: 01/24/23 08:08 Dose: 40 mg Melatonin (Melatonin 3 Mg Tablet) 3 mg PO BEDTIME PRN PRN Reason: Insomnia Metoprolol Tartrate (Metoprolol Tartrate 50 Mg Tablet) 50 mg PO BID [facility]; Protocol Last Admin: 01/24/23 08:10 Dose: 50 mg Ondansetron HCl (Ondansetron Hcl 4 Mg/2 Ml Vial) 4 mg IVPUSH Q8H PRN PRN Reason: Nausea and Vomiting Polyethylene Glycol (Polyethylene Glycol 3350 17 Gm Powd.Pack) 17 gm PO Q2D [facility] Last Admin: 01/23/23 08:49 Dose: Not Given Potassium Chloride (Potassium Chloride Er 20 Meq Tab.Er.Prt) 20 meq PO DAILY [facility] Last Admin: 01/24/23 08:11 Dose: 20 meq Senna (Sennosides 8.6 Mg Tablet) 17.2 mg PO BEDTIME PRN PRN Reason: Constipation Sertraline HCl (Sertraline Hcl 50 Mg Tablet) 50 mg PO DAILY [facility] Last Admin: 01/24/23 08:10 Dose: 50 mg Sodium Chloride (0.9 % Sodium Chloride Flush 3 Ml Syringe) [facility] Last Admin: 01/24/23 08:12 Dose: 3 ml Tamsulosin HCl (Tamsulosin Hcl 0.4 Mg Capsule) 0.4 mg PO BEDTIME [facility] Last Admin: 01/23/23 19:42 Dose: 0.4 mg Home Medications Medication Instructions Recorded Confirmed Last Taken Type sertraline 50 mg tablet 50 mg PO DAILY 10/21/20 01/20/23 01/19/23 History acetaminophen 325 mg tablet 650 mg PO TID 04/17/22 01/20/23 01/19/23 History aspirin 81 mg tablet,delayed 81 mg PO DAILY 04/17/22 01/20/23 01/19/23 History release docusate sodium 100 mg capsule 100 mg PO BID@0900,1700 04/17/22 01/20/23 01/19/23 History folic acid 1 mg tablet 1 mg PO DAILY 04/17/22 01/20/23 01/19/23 History polyethylene glycol 3350 17 gram 17 g PO Q2D 04/17/22 01/20/23 01/18/23 History oral powder packet tamsulosin 0.4 mg capsule 0.4 mg PO BEDTIME 04/17/22 01/20/23 01/19/23 History finasteride 5 mg tablet 5 mg PO DAILY 09/22/22 01/20/23 01/19/23 History lidocaine 5 % topical patch 1 patch topical DAILY shoulder pain 09/22/22 01/20/23 01/19/23 History metoprolol tartrate 25 mg tablet 25 mg PO BID 09/22/22 01/20/23 01/19/23 History simvastatin 20 mg tablet 20 mg PO BEDTIME 09/22/22 01/20/23 01/19/23 History amlodipine 5 mg tablet 5 mg PO DAILY 01/20/23 01/20/23 01/19/23 History clonidine HCl 0.2 mg tablet 0.4 mg PO DAILY 01/20/23 01/20/23 01/19/23 History furosemide 40 mg tablet 20 mg PO DAILY 01/20/23 01/20/23 01/19/23 History lisinopril 40 mg tablet 40 mg PO DAILY 01/20/23 01/20/23 01/20/23 History potassium chloride 20 mEq 20 meq PO DAILY 01/20/23 01/20/23 01/19/23 History tablet,extended release Physical Exam Vital Signs: Vital Signs: Last Vital Signs Temp 97.5 F 01/24/23 07:20 Pulse 86 01/24/23 07:20 Resp 18 01/24/23 07:20 BP 92/48 L 01/24/23 09:59 Pulse Ox 94 01/24/23 07:20 O2 Del Method Room Air 01/24/23 07:20 BMI result Body Mass Index 34.1 Const: General: comfortable and no acute distress Orientation/consciousness: No patient oriented x3 HEENT: Other: Unremarkable Head: Yes normal to inspection Neck: Neck: Yes normal visual inspection Chest: Chest palpation & inspection: normal inspection of the chest Resp: Auscultation: clear to auscultation bilaterally Cardio: Palpation: normal PMI Heart sounds: S1 normal heart sound present, S2 normal heart sound present, no gallops, no murmurs and no rubs GI: Palpation (GI): Soft to palpation Back/Spine/Pelvis: Other: unremarkable Skin: General skin exam: no rashes or lesions noted Neuro: General: No patient oriented x3 Extrem: General: Yes normal to inspection Psych: Mental Status: mental status grossly abnormal Objective Labs and Meds 01/24/23 08:34 01/24/23 08:34 Lab results: Laboratory Results - last 24 hr 01/24/23 08:34 WBC 10.0 RBC 4.47 L Hgb 13.6 L Hct 41.2 L MCV 92.2 MCH 30.4 MCHC 33.0 RDW 13.5 Plt Count 348 MPV 9.5 Absolute Nucleated RBC 0.000 Nucleated RBC % (auto) 0.0 Sodium 137 Potassium 3.8 Chloride 102 Carbon Dioxide 24 Anion Gap 15 BUN 12 Creatinine 0.68 Estim Creat Clear Calc 112.6 Estimated GFR > 60 Random Glucose 101 Calcium 9.1 ECG Interpretation: EKG with atrial fibrillation at a rate of 121/Min with PVCs or aberrant conduction. This is from January 20. On telemetry currently he is in atrial fibrillation at a rate of 40s. Assessment and Plan (1) Atrial fibrillation with slow ventricular response: Status: Acute (2) Dementia without behavioral disturbance: Status: Acute Plan EKG from 3 days ago shows atrial fibrillation slightly increased rate. On telemetry currently he is in atrial fibrillation with reduced rate in the 30s and 40s. However, clinically he seems well compensated. Blood pressure on the lower side. We can stop his metoprolol completely for now. Also hold back on blood pressure medications. Once heart rate improves, then just resume the home dose of metoprolol without changes. Do not believe he needs a pacemaker or any other aggressive measures at this time. Discussed with Dr. Ramos and RN. Procedures Date of Service Date of Service: 01/24/23
[2023-01-24] MEDS: 0.9 % Sodium Chloride 1,000 ML 100 ML IVCONT (11:10)
--- NOTE | 2023-01-24 11:13 | P.PNIM_ITS ---
Subjective Subjective Date of Service: 01/24/23 Interval History: f/u on sepsis d/t UTI, AFIB with RVR Has been doing well, but this morning developped bradycardia, HR in 40s and 50, occsionally has dropped into 20s, HR was in in 80s before morning meds, and generally was in good range throughout the night, SBP was transiently in 90s, and started on IVF, repeat BP 130/68, consulted with cardiology, both clonidine and metoprolol are hold . Patient otherwise seems to be at his basline Physical Exam 2 Vital Signs: Vital Signs: Last Vital Signs Temp 97.7 F 01/24/23 11:04 Pulse 50 01/24/23 11:04 Resp 18 01/24/23 11:04 BP 131/68 01/24/23 11:04 Pulse Ox 96 01/24/23 11:04 O2 Del Method Room Air 01/24/23 07:20 BMI result Body Mass Index 34.1 Const: Other: Constitutional - Awake and Alert, No distress Cardiovascular - S1S2, RRR, No edema Respiratory - Normal lung expansion, Normal respiratory effort, No respiratory distress, CTA bilaterally Gastrointestinal - NT / ND; +BS; No rebound or guarding - No CVA tenderness Extremities - no calf tenderness bilaterally, no swelling Skin - Warm/Dry Neurological - Alert & oriented to self and place only Psychological - Appropriate affect Objective Data Active Medications Acetaminophen (Acetaminophen 325 Mg Tablet) 650 mg PO Q6H PRN PRN Reason: Pain, Mild (Pain Scale 1-3) Last Admin: 01/23/23 08:43 Dose: 650 mg Documented By: JEFF Amlodipine Besylate (Amlodipine Besylate 5 Mg Tablet) 5 mg PO DAILY [facility]; Protocol Last Admin: 01/24/23 08:11 Dose: 5 mg Documented By: MARIA VICTORIA Amoxicillin (Amoxicillin 500 Mg Capsule) 500 mg PO Q12H [facility] Last Admin: 01/24/23 08:09 Dose: 500 mg Documented By: MARIA VICTORIA Aspirin (Aspirin Enteric Coated 81 Mg Tablet.) 81 mg PO DAILY [facility] Last Admin: 01/24/23 08:10 Dose: 81 mg Documented By: MARIA VICTORIA Atorvastatin Calcium (Atorvastatin Calcium 10 Mg Tablet) 10 mg PO BEDTIME [facility] Last Admin: 01/23/23 19:42 Dose: 10 mg Documented By: HO.LAFLAMC Docusate Sodium (Docusate Sodium 100 Mg Capsule) 100 mg PO BID@0900,1700 [facility] Last Admin: 01/24/23 08:11 Dose: 100 mg Documented By: MARIA VICTORIA Enoxaparin Sodium (Enoxaparin Sodium 40 Mg/0.4 Ml Syringe) 40 mg SUBCUT Q24H [facility] Last Admin: 01/23/23 15:40 Dose: 40 mg Documented By: ALEX Finasteride (Finasteride 5 Mg Tablet) 5 mg PO DAILY [facility] Last Admin: 01/24/23 08:08 Dose: 5 mg Documented By: MARIA VICTORIA Folic Acid (Folic Acid 1 Mg Tablet) 1 mg PO DAILY [facility] Last Admin: 01/24/23 08:08 Dose: 1 mg Documented By: MARIA VICTORIA Furosemide (Furosemide 20 Mg Tablet) 20 mg PO DAILY [facility]; Protocol Last Admin: 01/24/23 08:11 Dose: 20 mg Documented By: MARIA VICTORIA Sodium Chloride (Ns) 1,000 mls @ 100 mls/hr IVCONT .Q10H [facility] Last Admin: 01/24/23 11:10 Dose: 100 mls/hr Documented By: MARIA VICTORIA Lidocaine (Lidocaine 4 % Patch Adh..Patch) 1 patch TRANSDERMA DAILY [facility] Last Admin: 01/24/23 08:12 Dose: 1 patch Documented By: MARIA VICTORIA Lisinopril (Lisinopril 40 Mg Tablet) 40 mg PO DAILY [facility]; Protocol Last Admin: 01/24/23 08:08 Dose: 40 mg Documented By: MARIA VICTORIA Melatonin (Melatonin 3 Mg Tablet) 3 mg PO BEDTIME PRN PRN Reason: Insomnia Metoprolol Tartrate (Metoprolol Tartrate 50 Mg Tablet) 50 mg PO BID [facility]; Protocol Last Admin: 01/24/23 08:10 Dose: 50 mg Documented By: MARIA VICTORIA Ondansetron HCl (Ondansetron Hcl 4 Mg/2 Ml Vial) 4 mg IVPUSH Q8H PRN PRN Reason: Nausea and Vomiting Polyethylene Glycol (Polyethylene Glycol 3350 17 Gm Powd.Pack) 17 gm PO Q2D [facility] Last Admin: 01/23/23 08:49 Dose: Not Given Documented By: JEFF Non-Admin Reason: Patient Refused Potassium Chloride (Potassium Chloride Er 20 Meq Tab.Er.Prt) 20 meq PO DAILY [facility] Last Admin: 01/24/23 08:11 Dose: 20 meq Documented By: MARIA VICTORIA Senna (Sennosides 8.6 Mg Tablet) 17.2 mg PO BEDTIME PRN PRN Reason: Constipation Sertraline HCl (Sertraline Hcl 50 Mg Tablet) 50 mg PO DAILY [facility] Last Admin: 01/24/23 08:10 Dose: 50 mg Documented By: MARIA VICTORIA Sodium Chloride (0.9 % Sodium Chloride Flush 3 Ml Syringe) 3 ml IVFLUSH QSHIFT [facility] Last Admin: 01/24/23 08:12 Dose: 3 ml Documented By: MARIA VICTORIA Tamsulosin HCl (Tamsulosin Hcl 0.4 Mg Capsule) 0.4 mg PO BEDTIME [facility] Last Admin: 01/23/23 19:42 Dose: 0.4 mg Documented By: JOSHUA Labs 01/24/23 08:34 01/24/23 08:34 Labs: Laboratory Results - last 24 hr 01/24/23 08:34 MCV 92.2 MCH 30.4 MCHC 33.0 RDW 13.5 Plt Count 348 MPV 9.5 Absolute Nucleated RBC 0.000 Nucleated RBC % (auto) 0.0 Anion Gap 15 Estim Creat Clear Calc 112.6 Estimated GFR > 60 Random Glucose 101 Calcium 9.1 Microbiology Microbiology Results: Microbiology 01/20/23 Unknown Urine Culture - Final Urine clean catch - Urine wmoack top Proteus mirabilis Enterococcus faecalis Assessment and Plan (1) Acute UTI: Status: Acute (2) Sepsis: Status: Acute (3) Chronic atrial fibrillation with RVR: Status: Acute Plan 87-year-old male with history of chronic atrial fibrillation not on anticoagulation, unspecified macular degeneration, hypertension, hyperlipidemia, BPH, Alzheimer's dementia, major depressive disorder admitted for UTI with sepsis and atrial fibrillation with RVR. #Acute UTI with sepsis, sepsis resolved, WBC down, tachy resolved. culture proteus, seinsitivity to ceftriaxone, Enteroccus/Strep sensitive to ampicillin so changing Abx Amoxicillin to cover both organisms. WBC now normal # chronic atrial fibrillation with RVR-tachycardia d/t infection. Now with Low HR as stated, unfortunately already received meds today, will hold evening dose of metoprol, stop Clonidine as well and , if needd will restart Metoprolol at lower dose of 25 bid, if symptomatic with bradycardia, will give Glucagon to reverse effect of BB, but at moment HR in 50s # hypertension--controlled, continue lisinopril, furosemide, amlodipine # unspecified congestive heart failure, compensated, continue home dose of Lasix # hyperlipidemia -continue statin # Alzheimer's dementia with mood disturbance, continue meds, presently calm # BPH -continue Flomax DVT prophylaxis-Lovenox Do not intubate need for inpt: Discharge on hold due to bradycardia with Hypotension possible dc tomorrow, if culture sensitivity is known I spoke to her daughter over the phone and explained that discharge is cancelled due to bradycardia as discussed above Quality Stroke Does the patient have a stroke diagnosis?: No VTE Prior VTE?: No VTE Risk Level:: Medical - moderate - high VTE Device Contraindication: Treatment Not Indicated VTE Drug Contraindication: N/A - Med Ordered
[2023-01-24] MEDS: Enoxaparin Sodium 40 MG/0.4 ML SYRINGE SUBCUT (17:46)
[2023-01-24] MEDS: Tamsulosin HCL 0.4 MG CAPSULE PO (20:01)
[2023-01-24] MEDS: Atorvastatin Calcium 10 MG TABLET PO (20:01)
[2023-01-25 03:54] VITALS: BP 135/74; PULSE 82; RESP 17; TEMP 37.1; O2SAT 93
[2023-01-25] MEDS: 0.9 % Sodium Chloride 1,000 ML 100 ML IVCONT (06:02)
--- NOTE | 2023-01-25 06:45 | PC.NURSE ---
This RN assumed care of pt at approximately 1930. Pt with no events overnight, IV fluids not running upon arrival. Restarted per APR. [place] cath in place, denies pain or discomfort at this time.
[2023-01-25 07:17] VITALS: BP 150/80; PULSE 88; RESP 20; TEMP 36.1; O2SAT 97
[2023-01-25] MEDS: Aspirin Enteric Coated 81 MG TABLET.DR PO (08:58)
[2023-01-25] MEDS: Folic Acid 1 MG TABLET PO (08:58)
[2023-01-25] MEDS: lisinopriL 40 MG TABLET PO (08:58)
[2023-01-25] MEDS: Furosemide 20 MG TABLET PO (08:58)
[2023-01-25] MEDS: Amoxicillin 500 MG CAPSULE PO ×2 (08:58→20:50)
[2023-01-25] MEDS: Docusate Sodium 100 MG CAPSULE PO ×2 (08:58→15:59)
[2023-01-25] MEDS: Potassium Chloride ER 20 MEQ TAB.ER.PRT PO (08:58)
[2023-01-25] MEDS: Finasteride 5 MG TABLET PO (08:58)
[2023-01-25] MEDS: Lidocaine 4 % Patch ADH..PATCH 1 PATCH TRANSDERMA (08:59)
[2023-01-25] MEDS: Metoprolol Tartrate 25 MG TABLET PO (08:59)
[2023-01-25] MEDS: Sertraline HCL 50 MG TABLET PO (08:59)
[2023-01-25] MEDS: amLODIPine Besylate 5 MG TABLET PO (08:59)
--- NOTE | 2023-01-25 09:16 | HO.WOUND ---
Wound Consult: Initial 87yr old male admitted to [facility] on? 01/20/23 15:22- See progress notes and H&P for detailed history. Wound consult placed for Coccyx assessment. Pt agreeable to assessment and denies pain and tenderness to the area. Buttocks and Coccyx assessed - red pink intact tissue remains nonblanchable over the bony coccyx area. Coccyx Etiology: Stage 1 Pressure Injury POA Measurements: 3cm x 2cm x 0cm Wound Bed: red pink intact nonblanchable tissue Drainage / Odor: None Edges: Linear ? Gracy wound: ? No Induration, fluctuance or warmth noted Pain: denies Goals of Treatment: ? Off Load Pressure and foam dressing to protect from friction and moisture. Recommendations: 1. Turn and Reposition every 2 hours and as needed for patient comfort. 2. Off Load all bony prominences with use of pillows and heel boots if needed.? Apply Preventative foams where needed. ? 3. Monitor for incontinence and moisture control, use barrier creams when needed for prevention and treatment - current condom cath in use. 4. Provide adequate and supplemental nutrition. 5. Order low air loss mattress. 6. Coccyx - Off Load Pressure - Cleanse with routine cleansing,pat dry. Apply sacral foam dressing, peel back and assess Q shift and change every 3 days and PRN. Re-consult wound care Nurse for wound deterioration or wound changes.
--- NOTE | 2023-01-25 10:42 | HO.PM.IMPN ---
Subjective Subjective Date of Service: 01/25/23 Interval History: f/u on sepsis d/t UTI, AFIB with RVR. Developped bradycardia yesterday and Clonidine and Metoprolol held. Bradycardia has since resolved. HR in the 80s now Physical Exam Vital Signs: Vital Signs: Last Vital Signs Temp 97.0 F 01/25/23 07:17 Pulse 88 01/25/23 07:17 Resp 20 01/25/23 07:17 BP 150/80 H 01/25/23 07:17 Pulse Ox 97 01/25/23 07:17 O2 Del Method Room Air 01/25/23 07:17 BMI result Body Mass Index 34.1 Const: Other: General: AO X 2, no acute distress Resp: CTA bilateral CVS: S1,S2,iregular iregular GI: +BS, NT, no distention Skin: No rash Neuro: motor grossly intact Psych: appropriate affect Objective Data Active Medications Acetaminophen (Acetaminophen 325 Mg Tablet) 650 mg PO Q6H PRN PRN Reason: Pain, Mild (Pain Scale 1-3) Last Admin: 01/23/23 08:43 Dose: 650 mg Documented By: JEFF Amlodipine Besylate (Amlodipine Besylate 5 Mg Tablet) 5 mg PO DAILY [facility]; Protocol Last Admin: 01/25/23 08:59 Dose: 5 mg Documented By: ANTHONY Amoxicillin (Amoxicillin 500 Mg Capsule) 500 mg PO Q12H [facility] Last Admin: 01/25/23 08:58 Dose: 500 mg Documented By: ANTHONY Aspirin (Aspirin Enteric Coated 81 Mg Tablet.) 81 mg PO DAILY [facility] Last Admin: 01/25/23 08:58 Dose: 81 mg Documented By: ANTHONY Atorvastatin Calcium (Atorvastatin Calcium 10 Mg Tablet) 10 mg PO BEDTIME [facility] Last Admin: 01/24/23 20:01 Dose: 10 mg Documented By: VIVIENNE Clonidine HCl (Clonidine Hcl 0.2 Mg Tablet) 0.2 mg PO BID [facility]; Protocol Docusate Sodium (Docusate Sodium 100 Mg Capsule) 100 mg PO BID@0900,1700 [facility] Last Admin: 01/25/23 08:58 Dose: 100 mg Documented By: ANTHONY Enoxaparin Sodium (Enoxaparin Sodium 40 Mg/0.4 Ml Syringe) 40 mg SUBCUT Q24H [facility] Last Admin: 01/24/23 17:46 Dose: 40 mg Documented By: ALEX Finasteride (Finasteride 5 Mg Tablet) 5 mg PO DAILY [facility] Last Admin: 01/25/23 08:58 Dose: 5 mg Documented By: ANTHONY Folic Acid (Folic Acid 1 Mg Tablet) 1 mg PO DAILY [facility] Last Admin: 01/25/23 08:58 Dose: 1 mg Documented By: ANTHONY Furosemide (Furosemide 20 Mg Tablet) 20 mg PO DAILY [facility]; Protocol Last Admin: 01/25/23 08:58 Dose: 20 mg Documented By: ANTHONY Sodium Chloride (Ns) 1,000 mls @ 100 mls/hr IVCONT .Q10H [facility] Last Admin: 01/25/23 06:02 Dose: 100 mls/hr Documented By: VIVIENNE Lidocaine (Lidocaine 4 % Patch Adh..Patch) 1 patch TRANSDERMA DAILY [facility] Last Admin: 01/25/23 08:59 Dose: 1 patch Documented By: ANTHONY Lisinopril (Lisinopril 40 Mg Tablet) 40 mg PO DAILY [facility]; Protocol Last Admin: 01/25/23 08:58 Dose: 40 mg Documented By: ANTHONY Melatonin (Melatonin 3 Mg Tablet) 3 mg PO BEDTIME PRN PRN Reason: Insomnia Ondansetron HCl (Ondansetron Hcl 4 Mg/2 Ml Vial) 4 mg IVPUSH Q8H PRN PRN Reason: Nausea and Vomiting Polyethylene Glycol (Polyethylene Glycol 3350 17 Gm Powd.Pack) 17 gm PO Q2D [facility] Last Admin: 01/25/23 09:01 Dose: Not Given Documented By: ANTHONY Non-Admin Reason: Patient Refused Potassium Chloride (Potassium Chloride Er 20 Meq Tab.Er.Prt) 20 meq PO DAILY [facility] Last Admin: 01/25/23 08:58 Dose: 20 meq Documented By: ANTHONY Senna (Sennosides 8.6 Mg Tablet) 17.2 mg PO BEDTIME PRN PRN Reason: Constipation Sertraline HCl (Sertraline Hcl 50 Mg Tablet) 50 mg PO DAILY [facility] Last Admin: 01/25/23 08:59 Dose: 50 mg Documented By: ANTHONY Sodium Chloride (0.9 % Sodium Chloride Flush 3 Ml Syringe) 3 ml IVFLUSH QSHIFT [facility] Last Admin: 01/25/23 08:59 Dose: Not Given Documented By: ANTHONY Non-Admin Reason: IV Running Tamsulosin HCl (Tamsulosin Hcl 0.4 Mg Capsule) 0.4 mg PO BEDTIME [facility] Last Admin: 01/24/23 20:01 Dose: 0.4 mg Documented By: VIVIENNE Labs 01/24/23 08:34 01/24/23 08:34 Microbiology Microbiology Results: Microbiology 01/20/23 Unknown Urine Culture - Final Urine clean catch - Urine womack top Proteus mirabilis Enterococcus faecalis Assessment and Plan (1) Acute UTI: Status: Acute (2) Sepsis: Status: Acute (3) Chronic atrial fibrillation with RVR: Status: Acute Plan 87-year-old male with history of chronic atrial fibrillation not on anticoagulation, unspecified macular degeneration, hypertension, hyperlipidemia, BPH, Alzheimer's dementia, major depressive disorder admitted for UTI with sepsis and atrial fibrillation with RVR. #Acute UTI with sepsis, sepsis resolved, WBC has normalized. Cutlure = Proteus and Enterococcus--both sensitive to Ampicillin. Initially was om Ceftriaxone with good effect. Started on Amoxillin 01/24 and should be treated for 10 days # chronic atrial fibrillation with RVR-tachycardia d/t infection. Tachycardia resolved. and On 01/24 went in bradycardia 20s to 40, metorprolol and clonidine were on hold and overnight, HR went back up to 70s and 80s. # hypertension--BP trending up usually on lisinopril, furosemide, amlodipine, metoprolol, clonidine--due to above described bradycardia, will stop metoprolol at this time and continue Clonidine at 0.2 mg twice daily to prevent clonidine withdrawal and rebound hypertension. # unspecified congestive heart failure, compensated, continue home dose of Lasix # hyperlipidemia -continue statin # Alzheimer's dementia with mood disturbance, continue meds, presently calm # BPH -continue Flomax DVT prophylaxis-Lovenox Do not intubate need for inpt: Discharge on hold due to bradycardia and med adjustment Patient will be monitored one more day for bradycardia and blood I spoke to her daughter over the phone and explained that discharge is cancelled due to bradycardia as discussed above Quality Stroke Does the patient have a stroke diagnosis?: No VTE Prior VTE?: No VTE Risk Level:: Medical - moderate - high VTE Device Contraindication: Treatment Not Indicated VTE Drug Contraindication: N/A - Med Ordered
[2023-01-25 10:57] VITALS: BP 165/79; PULSE 82; RESP 20; TEMP 36.7; O2SAT 97
--- NOTE | 2023-01-25 11:12 | MHC.CLN ---
NUTRITION CONSULT FOR REDNESS TO COCCYX. PATIENT WITH STAGE I PRESSURE INJURY TO COCCYX. DIET=CARDIAC, GROUND CONSISTENCY, INTAKE AT MOST MEALS APPEARS TO BE 75-100%. NO ADDITIONAL NUTRITION INTERVENTIONS AT THIS TIME.
--- NOTE | 2023-01-25 11:28 | MHC.CM.PN ---
IMM 01/25/23 sent to [facility], pt has been medically cleared for DC, he will return to the [facility] via ambulance.
--- NOTE | 2023-01-25 11:47 | PM.PNCARD ---
Subjective Subjective Date of Service: 01/25/23 Interval history: Seen examined at bedside. Denying any symptoms. Heart rates have been better controlled. Physical Exam Vital Signs: Last Vital Signs Temp 98.0 F 01/25/23 10:57 Pulse 82 01/25/23 10:57 Resp 20 01/25/23 10:57 BP 165/79 H 01/25/23 10:57 Pulse Ox 97 01/25/23 10:57 O2 Del Method Room Air 01/25/23 10:57 BMI result Body Mass Index 34.1 GENERAL APPEARANCE: in no acute distress, pleasant. NECK: no carotid bruit, no jugular venous distention. SKIN: no suspicious lesions, warm and dry. HEART: no murmurs, irregular rate and rhythm. LUNGS: clear to auscultation bilaterally. ABDOMEN: soft, nontender. EXTREMITIES: no edema. PERIPHERAL PULSES: equal. NEUROLOGIC: No gross deficits, AAO X 3 Objective Labs and Meds 01/24/23 08:34 01/24/23 08:34 Progress Note: A&P Assessment and plan (1) Dementia without behavioral disturbance: Status: Acute (2) Atrial fibrillation with slow ventricular response: Status: Acute Plan [age] year gentleman who has dementia and was noted to have AFib with slow ventricular response. It appears was getting clonidine 0.4 mg once a day. He was noted to be bradycardic and asymptomatic. Given the fact that he is on fairly high dose of clonidine I think stopping the coronary is going to create some more problems as he may withdrawal and get hypertensive. I think chronically should be split into 0.2 mg 2 times a day. Hold metoprolol for now. If heart rate stays below 110 then can be of metoprolol completely for now. On the other hand if he is tachycardic in 120s or higher than metoprolol 25 mg b.i.d. can be resumed. It appears that he had bleeding before and that is why he is on anticoagulation. He lives at [facility] and would defer to them for reassessment and restarting the anticoagulation if deemed appropriate. If he has frequent falls and other reasons to be off anticoagulation given the fact that he has dementia then appears reasonable to hold anticoagulation. We will follow along with you. Time Spent With Patient Time: Total time managing care of this patient today ____ minutes. Progress Note: Quality Stroke Does the patient have a stroke diagnosis?: No Procedures Date of Service Date of Service: 01/25/23
[2023-01-25] MEDS: cloNIDine HCL 0.2 MG TABLET PO ×2 (12:09→20:51)
--- NOTE | 2023-01-25 15:00 | MHC.CM.PN ---
DC per provider, [facility] notified.
[2023-01-25 15:54] VITALS: BP 156/78; PULSE 73; RESP 18; TEMP 36.9; O2SAT 96
[2023-01-25] MEDS: Enoxaparin Sodium 40 MG/0.4 ML SYRINGE SUBCUT (15:58)
[2023-01-25] MEDS: 0.9 % Sodium Chloride Flush 3 ML SYRINGE IVFLUSH ×2 (15:59→20:52)
[2023-01-25 19:38] VITALS: BP 154/76; PULSE 74; RESP 18; TEMP 36.8; O2SAT 96
[2023-01-25] MEDS: Tamsulosin HCL 0.4 MG CAPSULE PO (20:50)
[2023-01-25] MEDS: Atorvastatin Calcium 10 MG TABLET PO (20:50)
[2023-01-25 23:44] VITALS: BP 124/69; PULSE 58; RESP 18; TEMP 36.8; O2SAT 96
[2023-01-26 04:00] VITALS: BP 131/76; PULSE 74; RESP 18; TEMP 36.7; O2SAT 96
[2023-01-26 07:05] VITALS: BP 137/67; PULSE 82; RESP 17; TEMP 36.3; O2SAT 92
[2023-01-26] MEDS: Lidocaine 4 % Patch ADH..PATCH 1 PATCH TRANSDERMA (09:28)
[2023-01-26] MEDS: Amoxicillin 500 MG CAPSULE PO (09:29)
[2023-01-26] MEDS: Docusate Sodium 100 MG CAPSULE PO (09:29)
[2023-01-26] MEDS: amLODIPine Besylate 5 MG TABLET PO (09:29)
[2023-01-26] MEDS: Finasteride 5 MG TABLET PO (09:29)
[2023-01-26] MEDS: Acetaminophen 325 MG TABLET 650 MG PO (09:29)
[2023-01-26] MEDS: Folic Acid 1 MG TABLET PO (09:29)
[2023-01-26] MEDS: Sertraline HCL 50 MG TABLET PO (09:29)
[2023-01-26] MEDS: Furosemide 20 MG TABLET PO (09:29)
[2023-01-26] MEDS: cloNIDine HCL 0.2 MG TABLET PO (09:29)
[2023-01-26] MEDS: Aspirin Enteric Coated 81 MG TABLET.DR PO (09:29)
[2023-01-26] MEDS: lisinopriL 40 MG TABLET PO (09:29)
[2023-01-26] MEDS: Potassium Chloride ER 20 MEQ TAB.ER.PRT PO (09:29)
[2023-01-26] MEDS: 0.9 % Sodium Chloride Flush 3 ML SYRINGE IVFLUSH (09:30)
--- NOTE | 2023-01-26 11:13 | PM.PNCARD ---
Subjective Subjective Date of Service: 01/26/23 Interval history: Seen examined at bedside. Heart rates improved. Left arm is swollen and tender potentially due to infiltration of IV line. Physical Exam Vital Signs: Last Vital Signs Temp 97.3 F 01/26/23 07:05 Pulse 82 01/26/23 07:05 Resp 17 01/26/23 07:05 BP 137/67 01/26/23 07:05 Pulse Ox 92 01/26/23 07:05 O2 Del Method Room Air 01/26/23 07:05 BMI result Body Mass Index 34.1 GENERAL APPEARANCE: in no acute distress, pleasant. NECK: no carotid bruit, no jugular venous distention. SKIN: no suspicious lesions, warm and dry. HEART: no murmurs, irregular rate and rhythm. LUNGS: clear to auscultation bilaterally. ABDOMEN: soft, nontender. EXTREMITIES: Left upper extremity is swollen and tender at the elbow. No erythema. PERIPHERAL PULSES: equal. NEUROLOGIC: No gross deficits, AAO X 3 Objective Labs and Meds 01/24/23 08:34 01/24/23 08:34 Progress Note: A&P Assessment and plan (1) Dementia without behavioral disturbance: Status: Acute (2) Atrial fibrillation with slow ventricular response: Status: Acute Plan [age] gentleman with atrial fibrillation with slow ventricular response. He was getting clonidine 0.4 mg once a day and metoprolol 50 mg twice a day at home. We have divided the dose of clonidine to 0.2 mg twice a day and stop the metoprolol. His heart rates have been in 70s to 80s at this point. He has left upper extremity swelling probably due to IV infiltration. Removed the IV and elevate the arm. Consider ultrasound to make sure there is no DVT as he has not been on anticoagulation previously. As per discussion with the hospitalist, he is not on anticoagulation because of previous GI bleeding. Thank you for allowing me to participate in the care of your patient. Please feel free to contact me if you have any questions. Time Spent With Patient Time: Total time managing care of this patient today ____ minutes. Progress Note: Quality Stroke Does the patient have a stroke diagnosis?: No Procedures Date of Service Date of Service: 01/26/23
[2023-01-26 11:16] VITALS: BP 118/60; PULSE 78; RESP 18; TEMP 36.6; O2SAT 93
--- NOTE | 2023-01-26 12:22 | PM.DS ---
DS: Providers Provider Date of Service: 01/26/23 Date of admission: 01/20/23 15:22 Primary care physician: Dorian Thompson MD Consults: 01/23/23 10:57 Consult to Wound Care Routine Reason for consultation: blanchable redness coccyx 01/24/23 09:44 Consult to Cardiology Routine Consulting Provider: [facility] Reason for consultation: Bradycardia Has provider been notified: Yes DS: Diagnosis Discharge Diagnosis (1) Dementia without behavioral disturbance: Status: Acute (2) Atrial fibrillation with slow ventricular response: Status: Acute DS: Summary Hospital Course Hospital Course: Chief Complaint: lethargy, weakness, fevers 87-year-old male with history of chronic atrial fibrillation not on anticoagulation, unspecified macular degeneration, hypertension, hyperlipidemia, BPH, Alzheimer's dementia, major depressive disorder presented to the ED via EMS from the [facility] where he resides for evaluation of low-grade fevers, lethargy/generalized weakness, and tachycardia noted this morning at facility. The patient is a limited historian secondary to his Alzheimer's dementia but is able to tell me he denies any abdominal pain, nausea, vomiting, dysuria, hematuria, increased urinary frequency, urgency, diarrhea, lightheadedness, shortness of breath, or chest pain. He was recently discharged from our facility on 12/12 due to hypotension associated with UTI. On arrival, patient febrile to 102.6 and tachycardic to 120, noted to be in atrial fibrillation with RVR. There is no hypoxia or hypotension. Fever resolved 975 mg acetaminophen and heart rate return to high 90s following 1 L IV NS. He does have a leukocytosis of 18.1. Stable normocytic anemia with H/H 13.4/41.1%. Renal function is baseline, electrolyte levels are normal, glucose 121. Lactic acid 1.7. Total bilirubin 1.1, direct bilirubin 0.6, hepatic function otherwise normal. Troponin 4.4. BNP 359. Urinalysis significant for 3+ leukocytes, negative nitrites, 2+ blood, positive urinary sediment, 4+ bacteria. Negative for influenza, COVID-19, RSV. Chest x-ray shows mild cardiomegaly with increased pulmonary vascular markings likely due to chronic interstitial lung changes similar to prior studies. EKG did show atrial fibrillation with RVR, rate 121, no ST/T-wave abnormality. In addition to IV fluids and Tylenol, patient was also given 1 g IV ceftriaxone. Patient will be admitted for further management of UTI with sepsis and atrial fibrillation with RVR. Hospital course: He presented with weakness, fever and lethargy as detailed above and work up reealed Sepsis due to UTI and afib with RVR. He was admitted for IV antibiotics and closer monitoring, #Acute UTI--He was started on Ceftriaxone with good effect, WBC trended down ,Culture has shown Proteusand Enterococcus and both are sensitive to ampicillin and therefore antibiotics changed to amoxillin and will treat for total of 10 days. Last WBC normal. # chronic atrial fibrillation with RVR-tachycardia was d/t infection, once he started antibiotic therapy RVR resolved. At baseline, he is not anticoagulated due to past bleeding issues. Normally on Metoprolol 50 bid and clonidine 0.4 mg daily. On 01/25, he developped bradycardia with HR briefly in the 20s but quickly improved to 40s, 50 and by overnight increased to 70. Metoprolol and clonidine were discontinued. And the next day Clonidine was restarted at 0. 2 mg twice a day on advise of cardiology to prevent rebound HTN from clonidine and clonidine withdrawal. Heart rate has since been in the 70. Cardiology advises that so long as HR < 110, metoprolol should not be restarted and only to be restarted if HR> 120 and in that case to be restarted at 25 mg twice daily. , # left upper extremity swelling duplex venous showed no DVT, keep left upper extremity elevated. # hypertension--controlled, continue lisinopril, furosemide, amlodipine and Clonidine. # unspecified congestive heart failure, compensated, continue home dose of Lasix. # hyperlipidemia -continue statin # Alzheimer's dementia with mood disturbance, continue meds, no acute behavioral issues noted in house. # BPH -continue Flomax [facility] Time Attestation Discharge coordination time: Greater than 30 minutes Quality: Safe Use of Opioids Does Pt have an Active Cancer Diagnosis on the Problem List?: No Quality: Stroke Does the patient have a stroke diagnosis?: No Physical Exam Vital Signs: Vital Signs: Last Vital Signs Temp 97.9 F 01/26/23 11:16 Pulse 78 01/26/23 11:16 Resp 18 01/26/23 11:16 BP 118/60 01/26/23 11:16 Pulse Ox 93 01/26/23 11:16 O2 Del Method Room Air 01/26/23 11:16 BMI result Body Mass Index 34.1 Const: Other: Appearance: awake alert in no acute distress Neck: Normal inspection. Neck supple. CVS: Normal heart rate and rhythm. Pulses normal. Respiratory: No respiratory distress. Breath sounds normal. Abdomen: Soft and non tender. Skin: Skin warm and dry Extremities: left upper extremity swelling, no redness, no warmth, No lower extremity edema. Neuro: No motor deficit. alert and oriented to self and place only. Discharge Plan Discharge Anticipated Discharge Date/Time: 01/26/23 12:15 Patient Disposition: er SNF Discharge Diagnosis: Sepsis due to UTI, AFIB with RVR Ref[facility]: [facility] [Outside] - 1 Week Dorian Thompson MD [Primary Care Provider] - 1 Week Discharge Medications: New clonidine HCl 0.2 mg Tablet 0.2 mg PO BID Qty: 60 0RF Protocol: Hold for SBP< HOLD for SBP < : 90 amoxicillin 500 mg Capsule 500 mg PO Q12H Qty: 16 0RF Continued sertraline 50 mg Tablet 50 mg PO DAILY furosemide 40 mg tablet 20 mg PO DAILY amlodipine 5 mg tablet 5 mg PO DAILY lisinopril 40 mg tablet 40 mg PO DAILY potassium chloride 20 mEq Tablet Extended Release 20 meq PO DAILY acetaminophen 325 mg tablet 650 mg PO TID aspirin 81 mg tablet,delayed release (DR/EC) 81 mg PO DAILY docusate sodium 100 mg capsule 100 mg PO BID@0900,1700 folic acid 1 mg tablet 1 mg PO DAILY polyethylene glycol 3350 17 gram powder in packet 17 g PO Q2D tamsulosin 0.4 mg capsule 0.4 mg PO BEDTIME finasteride 5 mg tablet 5 mg PO DAILY simvastatin 20 mg tablet 20 mg PO BEDTIME lidocaine 5 % adhesive patch,medicated 1 patch topical DAILY Rx Instructions: leave on most painful area for up to 12 hrs Discontinued clonidine HCl 0.2 mg tablet 0.4 mg PO DAILY Rx Instructions: HOLD FOR SBP < 120 metoprolol tartrate 25 mg tablet 25 mg PO BID Discharge Orders: Discharge Order (Routine); Ordered 01/26/23 Ordered By: Abraham Christopher Diet: Advance to usual diet Activity on Discharge: As tolerated Stand Alone Forms: Patient Portal Discharge page Care Plan Goals: To make full recovery from UTI noted to have bradycardia therefore metoprolol discontinued take clonidine 0.2 mg 1 tablet twice daily left upper extremity swelling due to infiltration at IV site, no DVT noted on Doppler study. Health Concerns: UTI atrial fibrilation Plan of Treatment: Take amoxicillin 500 mg 1 tablet twice daily for 8 more days Assessment: as above
--- NOTE | 2023-01-26 13:23 | MHC.CM.PN ---
Pt is medically cleared for D/C back to [facility]. Transport set up via [facility] at 2pm today. [facility] supervisor landscape [facility] notified and D/C summary faxed. Pts daughter/HCP Ree notified.
== END 2023-01-26 14:38 | disposition skilled nursing facility (03) | DRG 872 ==
LOC: HO.ED 14:27 → HO.EDOVER 15:22 → HO.IMC 01-21 02:30
PROVIDERS: Internal Medicine; Physician Assistant; Admitting Provider Physician Assistant; Emergency Provider Emergency Medicine Emergency Medical Services; PCP Internal Medicine; Visit Provider Hospitalist
DX: A41.9 Sepsis, unspecified organism (principal); I48.20 Chronic atrial fibrillation, unspecified; N39.0 Urinary tract infection, site not specified; F02.83 Dementia in other diseases classified elsewhere, unspecified severity, with mood disturbance; R00.1 Bradycardia, unspecified; E78.5 Hyperlipidemia, unspecified; N40.0 Benign prostatic hyperplasia without lower urinary tract symptoms; G30.1 Alzheimer's disease with late onset; B95.2 Enterococcus as the cause of diseases classified elsewhere; B96.4 Proteus (mirabilis) (morganii) as the cause of diseases classified elsewhere; Z20.822 Contact with and (suspected) exposure to COVID-19; Z79.82 Long term (current) use of aspirin; Z79.899 Other long term (current) drug therapy
CPT/HCPCS: 0241U; 36415; 71045; 80048; 80076; 81001; 83605; 83735; 83880; 84484; 85025; 85027; 85610; 87040; 87086; 87088; 87186; 93005; 93971; 99285; J0696; J1650

== ENCOUNTER → 2023-01-20 09:35 | Outpatient (BNV) | payer MEDICARE, MEDICAID, SELFPAY | PROVIDERS: Admitting Provider Physician Assistant; Emergency Provider Emergency Medicine Emergency Medical Services; PCP Internal Medicine; Visit Provider Internal Medicine | DX: I48.91 Unspecified atrial fibrillation (principal); I49.3 Ventricular premature depolarization | CPT/HCPCS: 93010 ==

== ENCOUNTER → 2023-01-20 15:22 | Outpatient (BNV) | payer MEDICARE, MEDICAID, SELFPAY | PROVIDERS: Admitting Provider Physician Assistant; Emergency Provider Emergency Medicine Emergency Medical Services; PCP Internal Medicine; Visit Provider Internal Medicine | DX: F03.90 Unspecified dementia, unspecified severity, without behavioral disturbance, psychotic disturbance, mood disturbance, and anxiety (principal); I48.91 Unspecified atrial fibrillation | CPT/HCPCS: 99223; 99232 ==

== ENCOUNTER → 2023-01-20 15:22 | Outpatient (BNV) | payer MEDICARE, MEDICAID, SELFPAY | PROVIDERS: Admitting Provider Physician Assistant; Emergency Provider Emergency Medicine Emergency Medical Services; PCP Internal Medicine; Visit Provider Physician Assistant | DX: I48.91 Unspecified atrial fibrillation (principal); I10 Essential (primary) hypertension; F03.90 Unspecified dementia, unspecified severity, without behavioral disturbance, psychotic disturbance, mood disturbance, and anxiety | CPT/HCPCS: 99223; 99232; 99233; 99239 ==

== ENCOUNTER 2023-01-27 11:56 | Outpatient (REF) | payer MEDICARE, MEDICAID, SELFPAY ==
[2023-01-27 12:00] LABS: MANUAL DIFF FLAG NO
[2023-01-27 12:08] LABS: Basophils Percent Auto 0.3 % (0-2); Eosinophils Absolute Auto 0.2 X10*3/uL (0.0-0.4); Eosinophils Percent Auto 1.6 % (0-4); Hematocrit 37.6 % (42.0-52.0); Hemoglobin 12.2 g/dl (14.0-18.0); Imm Gran Abs Auto 0.18 X10*3/uL (0.00-0.03); Imm Gran Pct Auto 1.4 % (0.0-0.4); Lymphocytes Absolute Auto 1.6 X10*3/uL (1.2-4.9); Lymphocytes Percent Auto 12.1 % (20-40); Mean Corpuscular HGB Conc 32.4 g/dl (31.0-36.0); Mean Corpuscular Hemoglobin 30.1 pg (27.0-33.0); Mean Corpuscular Volume 92.8 fL (80.0-98.0); Mean Platelet Volume 9.5 fL (9.4-12.4); Monocytes Absolute Auto 0.9 X10*3/uL (0.1-1.2); Monocytes Percent Auto 6.4 % (2-11); Neutrophils Absolute Auto 10.4 x10*3/uL (2.0-8.3); Neutrophils Percent Auto 78.2 % (45-73); Platelet Count 392 X10*3/uL (160-400); Red Blood Count 4.05 X10*6/uL (4.60-5.80); Red Cell Distribution Width 13.4 % (11.0-16.0); White Blood Count 13.3 X10*3/uL (4.8-10.8)
[2023-01-27 12:19] LABS: Alanine Aminotransferase 23 U/L (0-40); Albumin Level 2.8 g/dL (3.5-5.0); Alkaline Phosphatase 81 U/L (39-117); Anion Gap 11 (12-20); Aspartate Amino Transferase 17 U/L (5-37); Bilirubin Total 0.6 mg/dL (0.0-1.0); Blood Urea Nitrogen 11 mg/dL (9-16); Carbon Dioxide 25 mmol/L (22-29); Chloride 100 mmol/L (96-108); Estimated Glomerular Filt Rate > 60; Glucose Random 146 mg/dL (60-115); Potassium 3.7 mmol/L (3.3-5.1); Sodium 132 mmol/L (135-145); Total Protein 6.7 g/dL (6.5-8.0)
[2023-01-27 12:46] LABS: Erythrocyte Sedimentation Rate 48 MM/HR (0-15)
[2023-01-27 12:55] LABS: D Dimer High Sensitivity 423 NG/ML
== END 2023-01-27 11:57 | disposition home or self-care (01) ==
LOC: HO.HSH3W 11:56
PROVIDERS: Visit Provider Internal Medicine Medical Oncology
DX: I48.91 Unspecified atrial fibrillation (principal); G89.29 Other chronic pain
CPT/HCPCS: 36415; 80053; 85025; 85379; 85652

== ENCOUNTER 2023-02-18 09:54 | Outpatient (REF) | payer MEDICARE, MEDICAID, SELFPAY | END 2023-02-18 09:55 | disposition home or self-care (01) | LOC: HO.HSH3W 09:54 | PROVIDERS: Visit Provider Nurse Practitioner Acute Care | DX: N39.0 Urinary tract infection, site not specified (principal) | CPT/HCPCS: 36415; 81001; 85025; 87086; 87088; 87186 ==

== ENCOUNTER 2023-03-26 12:20 | Outpatient (REF) | payer MEDICARE, MEDICAID, SELFPAY ==
[2023-03-26 12:23] LABS: MANUAL DIFF FLAG NO
[2023-03-26 12:31] LABS: Basophils Absolute Auto 0.1 X10*3/uL (0.0-0.2); Basophils Percent Auto 0.4 % (0-2); Eosinophils Absolute Auto 0.1 X10*3/uL (0.0-0.4); Eosinophils Percent Auto 0.6 % (0-4); Hematocrit 42.8 % (42.0-52.0); Hemoglobin 14.1 g/dl (14.0-18.0); Imm Gran Abs Auto 0.08 X10*3/uL (0.00-0.03); Imm Gran Pct Auto 0.4 % (0.0-0.4); Lymphocytes Absolute Auto 1.1 X10*3/uL (1.2-4.9); Lymphocytes Percent Auto 6.2 % (20-40); Mean Corpuscular HGB Conc 32.9 g/dl (31.0-36.0); Mean Corpuscular Hemoglobin 30.3 pg (27.0-33.0); Mean Corpuscular Volume 91.8 fL (80.0-98.0); Mean Platelet Volume 9.8 fL (9.4-12.4); Monocytes Absolute Auto 1.4 X10*3/uL (0.1-1.2); Monocytes Percent Auto 8.1 % (2-11); Neutrophils Percent Auto 84.3 % (45-73); Platelet Count 282 X10*3/uL (160-400); Red Blood Count 4.66 X10*6/uL (4.60-5.80); Red Cell Distribution Width 15.6 % (11.0-16.0); White Blood Count 17.8 X10*3/uL (4.8-10.8)
[2023-03-26 12:38] LABS: Anion Gap 12 (12-20); Blood Urea Nitrogen 15 mg/dL (9-16); Carbon Dioxide 22 mmol/L (22-29); Chloride 104 mmol/L (96-108); Estimated Glomerular Filt Rate > 60; Glucose Random 153 mg/dL (60-115); Sodium 134 mmol/L (135-145)
== END 2023-03-26 12:21 | disposition home or self-care (01) ==
LOC: HO.HSH3W 12:20
PROVIDERS: Visit Provider Nurse Practitioner Acute Care
DX: J98.8 Other specified respiratory disorders (principal)
CPT/HCPCS: 36415; 80048; 85025

== ENCOUNTER 2023-03-27 21:42 | Outpatient (REF) | payer MEDICARE, MEDICAID, SELFPAY ==
[2023-03-27 21:51] LABS: Appearance Urine Turbid; Color Urine Dark Yellow; Glucose Urine UA Negative (Negative); Leukocyte Esterase Urine Large (3+) (Negative); Nitrite Urine Negative (Negative); Specific Gravity - Urine 1.015 (1.005-1.025); UMIC TRIGGER UACC YES; Urine Blood Moderate (2+) (Negative); Urine Ketones Negative (Negative); Urine Protein 100 (2+) mg/dL (Neg-Trace)
[2023-03-27 22:02] LABS: Bacteria Urine 3+ (None Seen); UACC Culture Trigger YES; WBC Urine >50 /HPF (0-5)
== END 2023-03-27 21:43 | disposition home or self-care (01) ==
LOC: HO.HSH3W 21:42
PROVIDERS: Visit Provider Internal Medicine
DX: R50.9 Fever, unspecified (principal); D72.829 Elevated white blood cell count, unspecified
CPT/HCPCS: 81001; 87086; 87088; 87186

== ENCOUNTER 2023-04-22 11:46 | Day surgery (SDC) | payer MEDICARE, MEDICAID, SELFPAY ==
[2023-04-22 12:04] VITALS: BP 142/62; PULSE 73; RESP 18; TEMP 36.6; O2SAT 97
--- NOTE | 2023-04-22 13:23 | W.PM.OPN ---
Operative Note Operative Note Date of Service: 04/22/23 Narrative: Meatus uncircumcised Urethra anterior and posterior urethra normal Prostatic Urethra normal Bladder examination with retroflexion of cystoscope Bladder Orifices normal shape and position Bladder Capacity large dilated Trabeculations grade 4 Cellule Formation yes Diverticulum Formation superior Mucosal Erythema diffuse Bladder Tumor -
[2023-04-22 13:30] VITALS: BP 127/71; PULSE 74; RESP 16; TEMP 36.3; O2SAT 96
== END 2023-04-22 14:34 | disposition home or self-care (01) ==
PROVIDERS: PCP Internal Medicine; Visit Provider Urology
PROC: 0TJB8ZZ Inspection of Bladder, Via Natural or Artificial Opening Endoscopic (ICD-10-PCS; CPT 52000; principal; 2023-04-22 13:00)
DX: D30.3 Benign neoplasm of bladder (principal); N40.1 Benign prostatic hyperplasia with lower urinary tract symptoms; R31.9 Hematuria, unspecified; R39.14 Feeling of incomplete bladder emptying; N32.89 Other specified disorders of bladder; Z87.440 Personal history of urinary (tract) infections; I48.20 Chronic atrial fibrillation, unspecified; E78.5 Hyperlipidemia, unspecified; F03.90 Unspecified dementia, unspecified severity, without behavioral disturbance, psychotic disturbance, mood disturbance, and anxiety
CPT/HCPCS: 52000

== ENCOUNTER → 2023-04-22 11:46 | Outpatient (BNV) | payer MEDICARE, MEDICAID, SELFPAY | PROVIDERS: PCP Internal Medicine; Visit Provider Urology | DX: R31.9 Hematuria, unspecified (principal) | CPT/HCPCS: 52000 ==

== ENCOUNTER 2023-04-26 05:46 | Inpatient (IN) | payer MEDICARE, MEDICAID, SELFPAY ==
[2023-04-26] VITALS (12 sets, daily range): BP systolic 101–171; BP diastolic 56–95; PULSE 60–144; RESP 13–20; TEMP 36.3–38.5; O2SAT 95–100; BMI 32.9; BMI 35.8
--- NOTE | 2023-04-26 | ECG_ITS ---
Test Reason : SOB Blood Pressure : / mmHG Vent. Rate : 138 BPM Atrial Rate : 326 BPM P-R Int : 000 ms QRS Dur : 090 ms QT Int : 292 ms P-R-T Axes : 000 -10 -05 degrees QTc Int : 442 ms Poor data quality Atrial fibrillation with rapid ventricular response with Premature ventricular complexes Nonspecific ST abnormality Abnormal ECG When compared with ECG of 20-JAN-2023 09:58, No significant changes seen Referred By: Generic ED Physician Electronically Signed By:FAVIAN PERERA MD
--- NOTE | ~2023-04-26 | XR_ITS ---
EXAMINATION: XR CHEST CLINICAL INFORMATION: Dyspnea COMPARISON: 01/20/2023 TECHNIQUE: Frontal view of the chest was obtained. FINDINGS: Lungs are hypoinflated. No acute radiographic abnormality. No consolidation. There is a questionable finding of chronic mild thickening of bronchial gillespie and/or mild interstitial prominence. Cardiac silhouette is enlarged. No cephalization of pulmonary venous flow, interstitial edema or pleural effusion. 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 XR/XR chest 1V IMPRESSION: * No acute cardiopulmonary findings. * Cardiomegaly without evidence of acute pulmonary edema or pleural effusion.
--- NOTE | ~2023-04-26 | CT_ITS ---
EXAMINATION: CT CHEST WITHOUT CONTRAST CLINICAL INFORMATION: Hypoxia and fever. COMPARISON: None available. TECHNIQUE: Multidetector volumetric CT imaging of the chest was done. Axial MIP volume rendering provided. Sagittal and coronal reformatted images were obtained. This CT examination was performed using dose optimization techniques as appropriate, variously including the following: *Automated exposure control *Adjustment of mA and/or kV according to patient size (this includes techniques or standardized protocols for targeted exams where dose is matched to indication/reason for exam; i.e. extremities or head) *Use of iterative reconstruction technique DLP: 441 mGy-cm FINDINGS: LUNGS: Diffuse subpleural reticular changes with thickening of the interlobular septa. Mild diffuse bronchiectasis. No focal consolidation. Central airways are patent. MEDIASTINUM: No bulky axillary, hilar or mediastinal lymphadenopathy. Great vessels are of normal caliber. Heart is enlarged. No pericardial effusion. CORONARY ARTERY CALCIFICATION: Severe. PLEURA: No pleural effusion. UPPER ABDOMEN: Unremarkable. OSSEOUS STRUCTURES: Severe degenerative changes of bilateral shoulders. CT/CT chest wo IV con IMPRESSION: Chronic interstitial lung disease. No superimposed consolidation. Cardiomegaly.
--- NOTE | 2023-04-26 06:12 | PC.NURSE ---
CT with pt. EKG complete
--- NOTE | 2023-04-26 06:20 | ED.SOB ---
HPI - SOB/Dyspnea General Chief Complaint: Dyspnea Stated Complaint: FLU FEVER AND CHILLS Time Seen by Provider: 04/26/23 06:12 Source: EMS Mode of arrival: EMS Limitations: other (Lacks insight as to why he is here in the emergency department) History of Present Illness HPI Narrative: 88-year-old male with history of chronic atrial fibrillation, dementia, hyperlipidemia, BPH, hypertension, depression, alcohol use disorder, hyperlipidemia, resident of the [facility] who was sent to the emergency department for evaluation of increased shortness of breath. The patient was positive for influenza a and B and started on Tamiflu on 04/25/2023. Prior to transport the patient was found to have uncontrolled shivering and a temperature of a 100.4 degrees. He also appeared to be dyspneic. His O2 saturation was 70% on room air. The patient was given Tylenol prior to transport. The patient is awake and alert and does not appear to be in distress, he lacks insight as to why he is here in the emergency department. Related Data Home Medications Medication Instructions Recorded Confirmed sertraline 50 mg tablet 50 mg PO DAILY 10/21/20 01/20/23 acetaminophen 325 mg tablet 650 mg PO TID 04/17/22 01/20/23 aspirin 81 mg tablet,delayed 81 mg PO DAILY 04/17/22 01/20/23 release docusate sodium 100 mg capsule 100 mg PO BID@0900,1700 04/17/22 01/20/23 folic acid 1 mg tablet 1 mg PO DAILY 04/17/22 01/20/23 polyethylene glycol 3350 17 gram 17 g PO Q2D 04/17/22 01/20/23 oral powder packet tamsulosin 0.4 mg capsule 0.4 mg PO BEDTIME 04/17/22 01/20/23 finasteride 5 mg tablet 5 mg PO DAILY 09/22/22 01/20/23 lidocaine 5 % topical patch 1 patch topical DAILY shoulder pain 09/22/22 01/20/23 simvastatin 20 mg tablet 20 mg PO BEDTIME 09/22/22 01/20/23 amlodipine 5 mg tablet 5 mg PO DAILY 01/20/23 01/20/23 furosemide 40 mg tablet 20 mg PO DAILY 01/20/23 01/20/23 lisinopril 40 mg tablet 40 mg PO DAILY 01/20/23 01/20/23 potassium chloride 20 mEq 20 meq PO DAILY 01/20/23 01/20/23 tablet,extended release Previous Rx's Medication Instructions Recorded amoxicillin 500 mg capsule 500 mg PO Q12H #16 caps 01/26/23 clonidine HCl 0.2 mg tablet 0.2 mg PO BID #60 tabs 01/26/23 Allergies Allergy/AdvReac Type Severity Reaction Status Date / Time terazosin Allergy Unknown Unknown Verified 04/26/23 05:59 Review of Systems Review of Systems: Yes Other (Dementia) [facility] Past Medical History Medical History (Updated 04/26/23 @ 06:42 by Román Ochoa MD) Chronic atrial fibrillation with RVR Unspecified macular degeneration Primary osteoarthritis, left shoulder Pain in left shoulder Mild cognitive impairment of uncertain or unknown etiology Localized edema Edema, unspecified Feeling of incomplete bladder emptying Personal history of urinary (tract) infections Personal history of COVID-19 Squamous cell carcinoma of skin of scalp and neck Alcohol abuse, uncomplicated Bilateral primary osteoarthritis of knee Major depressive disorder, single episode, unspecified Dementia without behavioral disturbance Alzheimer's disease with late onset Chronic atrial fibrillation BPH (benign prostatic hyperplasia) HTN (hypertension) HLD (hyperlipidemia) Family History Family History Father No problems noted. Mother No problems noted. Social History 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 Housing: Detention Housing Other:: [facility] Unable to assess alcohol history related to: Unknown Alcohol intake: former Patient Tobacco Use Status: Never used Tobacco Smoked in Last 30 Days: No Use of substances other than those prescribed or required for medical reasons: No Advance Directives: Yes Advance Directives on File: Yes Advance Directives Date on File: 12/10/22 service: Yes Physical Exam Vital Signs: Vital Signs: Last Vital Signs Temp 98.7 F 04/26/23 07:27 Pulse 118 H 04/26/23 07:27 Resp 18 04/26/23 07:27 BP 108/63 04/26/23 07:27 Pulse Ox 95 04/26/23 07:27 O2 Del Method Nasal Cannula 04/26/23 07:27 O2 Flow Rate 2 04/26/23 07:27 Oxygen Flow Rate 2 04/26/23 06:04 BMI result Body Mass Index 32.9 Vital signs revealed an elevated temperature of a 101.3 degrees F, elevated heart rate 144, O2 saturation was 95% on 2 L of oxygen via nasal cannula Exam: General: Awake, alert in no distress, diaphoretic, speaks in full sentences Head: Normocephalic, atraumatic EENT: PERRL, Lids normal, sclera normal, conjunctiva normal, nose normal , ears normal, throat without erythema or exudates Neck: Supple, no adenopathy Lung: breath sounds symmetric, no wheezing or rales , diffuse rhonchi Chest: symmetric movement, nontender Heart: Rapid rate, irregularly irregular rhythm, , normal S1, S2 no murmurs or rubs Abdomen: soft, non-tender, nondistended, normal bowel sounds Back: no vertebral tenderness, no CVAT Extremities: no deformities, moves all extremities symmetrically Neuro: Awake, alert, oriented, normal speech, cranial nerves intact, moves all extremities symmetrically Psych: Pleasant, cooperative Medications Administered Generic Name Dose Route Start Last Admin Trade Name Freq PRN Reason Stop Dose Admin Azithromycin 500 mg/ Sodium 250 mls @ 125 mls/hr 04/26/23 07:20 04/26/23 07:27 Chloride IV 04/26/23 09:19 125 mls/hr ONCE ONE Administration Discontinued Medications Generic Name Dose Route Start Last Admin Trade Name Freq PRN Reason Stop Dose Admin Sodium Chloride 2,535 mls @ 2,535 mls/hr 04/26/23 06:13 04/26/23 06:34 Ns IV 04/26/23 07:12 2,535 mls/hr .Q1H STA Administration Ceftriaxone Sodium 1 gm/ 50 mls @ 100 mls/hr 04/26/23 07:20 04/26/23 07:59 Sodium Chloride IV 04/26/23 07:49 Infused ONCE ONE Infusion Ibuprofen 400 mg 04/26/23 06:35 04/26/23 07:27 Ibuprofen 400 Mg Tablet PO 04/26/23 06:36 400 mg ONCE ONE Administration Medical Decision Making Medical Decision Making MDM Narrative: 88-year-old male with history of chronic atrial fibrillation, dementia, hyperlipidemia, BPH, hypertension, depression, alcohol use disorder, resident of the [facility] who was sent to the emergency department for evaluation of increased shortness of breath. The patient is positive for influenza a and B and started on Tamiflu on 04/25/2023. Prior to transport the patient was found to have uncontrolled shivering and a temperature of a 100.4 degrees. He also appeared to be dyspneic. His O2 saturation was 70% on room air. The patient was given Tylenol prior to transport. In the emergency department the patient's O2 saturation on 2 L of oxygen via nasal cannula was 92%. Patient does have an elevated heart rate and is in atrial fibrillation. Lung exam did reveal diffuse rhonchi. Patient was diaphoretic. Did receive Tylenol prior to coming to the emergency department. 06:33 Differential diagnosis: ?Includes but is not limited to bacterial pneumonia, viral pneumonia, urinary tract infection, dehydration, electrolyte abnormalities, anemia Following evaluation was ordered: CBC, BMP, lactic acid, liver panel, troponin, BNP, EKG, SARs, blood cultures x2 Patient was initially treated with the followin cc/kilogram normal saline bolus, ibuprofen 400 mg orally for fever, ceftriaxone 1 g IV, azithromycin 500 mg IV Course: The patient is obese based on an elevated BMI of 32.9 therefore his normal saline bolus was based on his ideal body weight. Patient may have a left lower lobe infiltrate based on my interpretation of the chest x-ray. EKG revealed atrial fibrillation with a rapid ventricular response of 138 with frequent PVCs, elevated ventricular rate may be secondary to dehydration, volume depletion and fever therefore hold off on giving him medications to slow down his rate until he is completed his bolus and his fever has come down. 08:09 The patient's chest x-ray reading is pending, patient's troponin is elevated at 73.2-most likely type 2 injury secondary to pneumonia and atrial fibrillation with RVR. Repeat troponin is due at 09:45 hours. At the end of my shift, the patient's care was turned over to my colleague, Dr. Mary Carmona Admission/Observation Consideration of admission/observation: Escalation of care including admission/observation considered Lab Data My independent interpretation patient's laboratory evaluation is as follows: WBC elevated 12,200 with a left shift 92 neutrophils. Bicarb low 19, BUN elevated 23, glucose elevated 143. Lactic acid elevated 2.9. Troponin elevated 73.2 Will repeat in 3 hours. BNP elevated 382. COVID-19, influenza and RSV negative. 03/11/24 06:21 04/26/23 06:21 Labs: Lab Results 04/26/23 04/26/23 Range/Units 06:21 06:44 WBC 12.2 H (4.8-10.8) X10*3/uL RBC 4.68 (4.60-5.80) X10*6/uL Hgb 14.1 (14.0-18.0) g/dl Hct 42.2 (42.0-52.0) % MCV 90.2 (80.0-98.0) fL MCH 30.1 (27.0-33.0) pg MCHC 33.4 (31.0-36.0) g/dl RDW 15.9 (11.0-16.0) % Plt Count 217 (160-400) X10*3/uL MPV 10.0 (9.4-12.4) fL Immature Gran % (Auto) 0.4 (0.0-0.4) % Neut % (Auto) 92.1 H (45-73) % Lymph % (Auto) 2.5 L (20-40) % [place] % (Auto) 4.6 (2-11) % Eos % (Auto) 0.2 (0-4) % Baso % (Auto) 0.2 (0-2) % Lymph # (Auto) 0.3 L (1.2-4.9) X10*3/uL [place] # (Auto) 0.6 (0.1-1.2) X10*3/uL Eos # (Auto) 0.0 (0.0-0.4) X10*3/uL Baso # (Auto) 0.0 (0.0-0.2) X10*3/uL Abs Immat Gran (auto) 0.05 H (0.00-0.03) X10*3/uL Absolute Neuts (auto) 11.2 H (2.0-8.3) x10*3/uL Absolute Nucleated RBC 0.000 (0.0-0.012) X10*3/uL Nucleated RBC % (auto) 0.0 (0.0-0.2) /100WBC Smear Tech's Comments VERIFIED Sodium 136 (135-145) mmol/L Potassium 4.0 (3.3-5.1) mmol/L Chloride 106 (96-108) mmol/L Carbon Dioxide 19 L (22-29) mmol/L Anion Gap 15 (12-20) BUN 23 H (9-16) mg/dL Creatinine 1.01 (0.5-1.4) mg/dL Estim Creat Clear Calc 73.1 Estimated GFR > 60 Random Glucose 143 H (60-115) mg/dL Lactic Acid 2.9 H* (0.5-2.0) mmol/L Calcium 9.5 (8.4-10.2) mg/dL Total Bilirubin 1.0 (0.0-1.0) mg/dL Direct Bilirubin 0.6 H (0.0-0.5) mg/dL AST 17 (5-37) U/L ALT 22 (0-40) U/L Alkaline Phosphatase 103 (39-117) U/L Troponin I High Sens 73.2 H D (<3.5-35.0) ng/L B-Natriuretic Peptide 382 H (<100) pg/mL Total Protein 7.4 (6.5-8.0) g/dL Albumin 3.3 L (3.5-5.0) g/dL Influenza Type A (PCR) NEGATIVE (Negative) Influenza Type B (PCR) NEGATIVE (Negative) RSV RNA Qual (PCR) NEGATIVE (Negative) SARS-CoV-2 RNA (RT-PCR) NEGATIVE (Negative) Independent Interpretation I performed an independent interpretation of an: EKG and Plain X-Ray Interpretation: My interpretation patient's one-view chest x-ray is as follows: Left lower lobe infiltrate My interpretation the patient's 12 EKG done at 06:06 hours is as follows: Atrial fibrillation with a rapid ventricular response of 138 beats per minute, frequent PVCs, baseline is erratic secondary to patient's tremors which makes EKG difficult to interpret but I do not see any clear ST segment elevation or depression and T-wave abnormalities are difficult to discern. Chronic Conditions Patient?s care impacted by: Hypertension Discharge Plan Discharge Clinical Impression: Atrial fibrillation with rapid ventricular response, Fever, Acute dehydration Pneumonia Qualifiers: Laterality: left Lung location: lower lobe of lung Patient Disposition: Still a Patient Prescriptions: No Action sertraline 50 mg Tablet 50 mg PO DAILY furosemide 40 mg tablet 20 mg PO DAILY amlodipine 5 mg tablet 5 mg PO DAILY lisinopril 40 mg tablet 40 mg PO DAILY potassium chloride 20 mEq Tablet Extended Release 20 meq PO DAILY clonidine HCl 0.2 mg Tablet 0.2 mg PO BID Qty: 60 0RF Protocol: Hold for SBP< HOLD for SBP < : 90 amoxicillin 500 mg Capsule 500 mg PO Q12H Qty: 16 0RF acetaminophen 325 mg tablet 650 mg PO TID aspirin 81 mg tablet,delayed release (DR/EC) 81 mg PO DAILY docusate sodium 100 mg capsule 100 mg PO BID@0900,1700 folic acid 1 mg tablet 1 mg PO DAILY polyethylene glycol 3350 17 gram powder in packet 17 g PO Q2D tamsulosin 0.4 mg capsule 0.4 mg PO BEDTIME finasteride 5 mg tablet 5 mg PO DAILY simvastatin 20 mg tablet 20 mg PO BEDTIME lidocaine 5 % adhesive patch,medicated 1 patch topical DAILY Rx Instructions: leave on most painful area for up to 12 hrs
[2023-04-26 06:31] LABS: Basophils Percent Auto 0.2 % (0-2); Eosinophils Percent Auto 0.2 % (0-4); Hematocrit 42.2 % (42.0-52.0); Hemoglobin 14.1 g/dl (14.0-18.0); Imm Gran Abs Auto 0.05 X10*3/uL (0.00-0.03); Imm Gran Pct Auto 0.4 % (0.0-0.4); Lymphocytes Absolute Auto 0.3 X10*3/uL (1.2-4.9); Lymphocytes Percent Auto 2.5 % (20-40); MANUAL DIFF FLAG SCAN; Mean Corpuscular HGB Conc 33.4 g/dl (31.0-36.0); Mean Corpuscular Hemoglobin 30.1 pg (27.0-33.0); Mean Corpuscular Volume 90.2 fL (80.0-98.0); Monocytes Absolute Auto 0.6 X10*3/uL (0.1-1.2); Monocytes Percent Auto 4.6 % (2-11); Neutrophils Absolute Auto 11.2 x10*3/uL (2.0-8.3); Neutrophils Percent Auto 92.1 % (45-73); Platelet Count 217 X10*3/uL (160-400); Red Blood Count 4.68 X10*6/uL (4.60-5.80); Red Cell Distribution Width 15.9 % (11.0-16.0); SCAN SMEAR FLAG 1; White Blood Count 12.2 X10*3/uL (4.8-10.8)
[2023-04-26 06:47] LABS: Lactic Acid 2.9 mmol/L (0.5-2.0)
[2023-04-26 06:49] LABS: Alanine Aminotransferase 22 U/L (0-40); Albumin Level 3.3 g/dL (3.5-5.0); Alkaline Phosphatase 103 U/L (39-117); Anion Gap 15 (12-20); Aspartate Amino Transferase 17 U/L (5-37); Bilirubin Direct 0.6 mg/dL (0.0-0.5); Blood Urea Nitrogen 23 mg/dL (9-16); Calcium 9.5 mg/dL (8.4-10.2); Carbon Dioxide 19 mmol/L (22-29); Chloride 106 mmol/L (96-108); Creatinine Clr Calc Pharmacy 73.1; Estimated Glomerular Filt Rate > 60; Glucose Random 143 mg/dL (60-115); Sodium 136 mmol/L (135-145); Total Protein 7.4 g/dL (6.5-8.0)
[2023-04-26 07:10] LABS: Troponin-I High Sensitivity 73.2 ng/L (<3.5-35.0)
[2023-04-26 07:11] LABS: B Type Natriuretic Peptide 382 pg/mL (<100)
[2023-04-26 07:11] LABS: Influenza A PCR NEGATIVE (Negative); Influenza B PCR NEGATIVE (Negative); Resp Syncy Virus RNA Qual PCR NEGATIVE (Negative); SARS COV2 PCR INHOUSE NEGATIVE (Negative)
[2023-04-26 07:18] LABS: SLIDE REVIEW VERIFIED
[2023-04-26] MEDS: cefTRIAXone sodium 1 GM in 0.9 % Sodium Chloride 50 ML IV (07:27)
[2023-04-26] MEDS: Azithromycin 500 MG in 0.9 % Sodium Chloride 250 ML 125 MG IV (07:27)
[2023-04-26] MEDS: Ibuprofen 400 MG TABLET PO (07:27)
--- NOTE | 2023-04-26 07:42 | PC.NURSE ---
a&ox3 - pt unaware on why he presents to the ED today. pt slightly hypotensive. sinus tachy on the mis director. 96% on 2L via NC - slight sob/wob noted. pt has slightly difficulty conversating w/o feeling sob. respirations even/slight labored. crackles noted in the lower lungs bilaterally. new 20gIV placed in the left forearm. medication administered per provider order. IVF continue to infuse at this time. pt seemingly diaphoretic but afebrile at this time. pt resting in no apparent distress. plan of care ongoing. call thomas placed within reach.
[2023-04-26 08:28] LABS: Reflex Lactate? Lactic Acid Added
--- NOTE | 2023-04-26 08:50 | PC.NURSE ---
repeat labs obtained/sent to lab. pt continues to rest in no apparent distress. IVF continues to infuse at this time. nsr on the health care administrator. respirations even and unlabored. call thomas placed within reach.
[2023-04-26 09:03] LABS: ~Lactic Acid-LAB USE ONLY 1.7 mmol/L (0.5-2.0)
--- NOTE | 2023-04-26 09:06 | PHA.MEDREC ---
Pharmacy Consult ? Medication Reconciliation Pharmacy has completed the medication reconciliation with list provided by [facility].
[2023-04-26 09:24] LABS: Troponin-I High Sensitivity 287.2 ng/L (<3.5-35.0)
--- NOTE | 2023-04-26 09:44 | PC.NURSE ---
vss and up to date at this time aside from remaining hypotensive. - will notify provider of BP. nsr on the production bow maker. IVF and abx completely infused per sepsis protocol. pt continues to rest in no apparent distress. respirations even and unlabored. plan of care ongoing.
[2023-04-26] MEDS: Aspirin 81 MG TAB.CHEW PO (09:57)
--- NOTE | 2023-04-26 09:57 | PC.NURSE ---
medication administered per provider order.
--- NOTE | 2023-04-26 11:20 | PM.IMHP ---
History of Present Illness Date of Service: 04/26/23 Attending physician on admission: Leonardo Ta Chief Complaint: fever, hypoxia 88 year old male with history of chronic atrial fibrillation not on AC, macular degeneration, hx alcohol use disorder, alzheimers disease, MDD, HTN, HLD, BPH, s/p cystoscopy 04/20 [facility] for evaluation of rigors, fevers of 100.4, and hypoxia in the 70s. He had been feeling unwell for several days with dyspnea and tested positive for influenza yesterday and was started on tamiflu. Today he states he is still dyspneic but denies st, congestion, abd pain, n/v/d, cough, lightheadedness, palpitations, chest pain. On arrival, febrile to 101.3, tachycardic to 144, hypoxic maintaining oximetry 95% on 2L supplemental O2. No hypotension. Milk leukocytosis 12.2. Renal function baseline, lytes normal. Initial lactic acid 2.9, repeat 1.7 following IVF. Initial trop 73.2, repeat 287.2. BNP 382. UA 3+ leuks, positive nitrites, 3+ blood, positive urinary sediment, 2+ bacteria. Negative influenza, rsv, covid 19. Chest CT shows chronic interstitial lung disease, no focal consolidation, cardiomegaly. EKG shows afib rvr rate 138, with nonspecific st/twave abnormality. In the ED, initially treated for presumed pneumonia with ctx and azithromycin as well as 2.5L IVF. Review of Systems Review of Systems: General: +fevers. No malaise, unintentional weight loss HEENT: No blurred vision, diplopia. No sore throat, nasal congestion, rhinorrhea, sinus pain, ear pain Cardiovascular: No chest pain, palpitations, or leg edema Respiratory: +dyspnea. No wheezing, cough GI: No abdominal pain, nausea, vomiting, diarrhea, constipation, melena, hematochezia : No dysuria, hematuria, increased urinary frequency, decreased urinary output MSK: No myalgia, back pain Neuro: No headaches, weakness, paresthesias Skin: No rashes or lesions [facility] Medical History Chronic atrial fibrillation with RVR Unspecified macular degeneration Primary osteoarthritis, left shoulder Pain in left shoulder Mild cognitive impairment of uncertain or unknown etiology Localized edema Edema, unspecified Feeling of incomplete bladder emptying Personal history of urinary (tract) infections Personal history of COVID-19 Squamous cell carcinoma of skin of scalp and neck Alcohol abuse, uncomplicated Bilateral primary osteoarthritis of knee Major depressive disorder, single episode, unspecified Dementia without behavioral disturbance Alzheimer's disease with late onset Chronic atrial fibrillation BPH (benign prostatic hyperplasia) HTN (hypertension) HLD (hyperlipidemia) Family History Father No problems noted. Mother No problems noted. 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 Housing: [facility] Housing Other:: [facility] Unable to assess alcohol history related to: Unknown Alcohol intake: former Patient Tobacco Use Status: Never used Tobacco Smoked in Last 30 Days: No Use of substances other than those prescribed or required for medical reasons: No Currently Displaying Signs/Symptoms of Drug Intoxication Withdrawal: No Have you been hit, kicked, punched, or otherwise hurt by someone within the past year? If so, by whom?: No Do you feel safe in your current relationship?: No Is there a partner from a previous relationship who is making you feel unsafe now?: No Are you made to feel afraid or neglected: No Judaism Healthcare Practices: Orthodoxy Advance Directives: Yes Advance Directives on File: Yes Advance Directives Date on File: 12/10/22 Do you have thoughts of harming others: None Do you have a plan to hurt others: No Plan Recently lost weight without trying: No Nutrition Risks: No Nutritional Risk service: Yes Meds Allergies Allergy/AdvReac Type Severity Reaction Status Date / Time terazosin Allergy Unknown Unknown Verified 04/26/23 05:59 Home Medications Medication Instructions Recorded Confirmed Last Taken Type sertraline 50 mg tablet 50 mg PO DAILY 10/21/20 04/26/23 04/25/23 History acetaminophen 325 mg tablet 650 mg PO TID 04/17/22 04/26/23 04/25/23 History aspirin 81 mg tablet,delayed 81 mg PO DAILY 04/17/22 04/26/23 04/25/23 History release docusate sodium 100 mg capsule 100 mg PO BID@0900,1700 04/17/22 04/26/23 04/25/23 History folic acid 1 mg tablet 1 mg PO DAILY 04/17/22 04/26/23 04/25/23 History polyethylene glycol 3350 17 gram 17 g PO Q48H 04/17/22 04/26/23 04/25/23 History oral powder packet tamsulosin 0.4 mg capsule 0.4 mg PO BEDTIME 04/17/22 04/26/23 04/25/23 History finasteride 5 mg tablet 5 mg PO DAILY 09/22/22 04/26/23 04/25/23 History simvastatin 20 mg tablet 20 mg PO BEDTIME 09/22/22 04/26/23 04/25/23 History amlodipine 5 mg tablet 5 mg PO DAILY 01/20/23 04/26/23 04/25/23 History furosemide 40 mg tablet 20 mg PO DAILY 01/20/23 04/26/23 04/25/23 History lisinopril 40 mg tablet 40 mg PO DAILY 01/20/23 04/26/23 04/25/23 History potassium chloride 20 mEq 20 meq PO DAILY 01/20/23 04/26/23 04/25/23 History tablet,extended release ascorbic acid (vitamin C) 1,000 mg 1 g PO DAILY 04/26/23 04/26/23 04/25/23 History tablet bisacodyl 10 mg rectal suppository 10 mg NM DAILY PRN Constipation 04/26/23 04/26/23 Unknown History lidocaine 4 % topical patch 1 patch topical DAILY PRN shoulder 04/26/23 04/26/23 04/25/23 History pain methenamine hippurate 1 gram tablet 1 g PO BID 04/26/23 04/26/23 04/25/23 History sennosides 8.6 mg tablet (senna) 8.6 mg PO BEDTIME PRN Constipation 04/26/23 04/26/23 Unknown History sertraline 25 mg tablet 25 mg PO DAILY 04/26/23 04/26/23 04/25/23 History sodium phosphates 19 gram-7 118 ml NM DAILY PRN Constipation 04/26/23 04/26/23 Unknown History gram/118 mL enema (Fleet Enema) tramadol 50 mg tablet 50 mg PO BEDTIME 04/26/23 04/26/23 04/25/23 History Physical Exam Vital Signs and Narrative: Vital Signs: Last Vital Signs Temp 98.2 F 04/26/23 10:25 Pulse 95 04/26/23 10:25 Resp 16 04/26/23 10:25 BP 113/56 L 04/26/23 10:25 Pulse Ox 98 04/26/23 10:25 O2 Del Method Room Air 04/26/23 10:25 O2 Flow Rate 2 04/26/23 09:43 Oxygen Flow Rate 2 04/26/23 06:04 BMI result Body Mass Index 32.9 Constitutional - Awake and Alert, No apparent distress Eyes - PERRLA, EOMI Cardiovascular - S1S2, RRR, No edema Respiratory - Normal lung expansion, Normal respiratory effort, No respiratory distress, CTA bilaterally Gastrointestinal - NT / ND; +BS; No rebound or guarding Extremities - no calf tenderness bilaterally, no swelling Skin - Warm/Dry Neurological - Alert & oriented x3 Psychological - Appropriate affect Results Labs 04/27/23 05:50 04/27/23 05:50 Labs: Laboratory Results - last 24 hr 04/26/23 04/26/23 04/26/23 06:21 06:44 08:47 MCV 90.2 MCH 30.1 MCHC 33.4 RDW 15.9 Plt Count 217 MPV 10.0 Immature Gran % (Auto) 0.4 Neut % (Auto) 92.1 H Lymph % (Auto) 2.5 L [place] % (Auto) 4.6 Eos % (Auto) 0.2 Baso % (Auto) 0.2 Lymph # (Auto) 0.3 L [place] # (Auto) 0.6 Eos # (Auto) 0.0 Baso # (Auto) 0.0 Abs Immat Gran (auto) 0.05 H Absolute Neuts (auto) 11.2 H Absolute Nucleated RBC 0.000 Nucleated RBC % (auto) 0.0 Smear Tech's Comments VERIFIED Anion Gap 15 Estim Creat Clear Calc 73.1 Estimated GFR > 60 Random Glucose 143 H Lactic Acid 2.9 H* Lactic Acid F/U @ 2Hr 1.7 Calcium 9.5 Total Bilirubin 1.0 Direct Bilirubin 0.6 H AST 17 ALT 22 Alkaline Phosphatase 103 Troponin I High Sens 73.2 H D 287.2 H* D B-Natriuretic Peptide 382 H Total Protein 7.4 Albumin 3.3 L Influenza Type A (PCR) NEGATIVE Influenza Type B (PCR) NEGATIVE RSV RNA Qual (PCR) NEGATIVE SARS-CoV-2 RNA (RT-PCR) NEGATIVE Imaging Radiologist's Impressions: Impressions Chest X-Ray 04/26/23 06:10 IMPRESSION: * No acute cardiopulmonary findings. * Cardiomegaly without evidence of acute pulmonary edema or pleural effusion. Chest CT 04/26/23 09:17 IMPRESSION: Chronic interstitial lung disease. No superimposed consolidation. Cardiomegaly. Assessment and Plan (1) Acute dehydration: Status: Acute (2) Atrial fibrillation with rapid ventricular response: Status: Acute (3) Acute UTI: Status: Acute (4) Acute hypoxemic respiratory failure: Status: Acute (5) Sepsis: Status: Resolved Plan 88 year old male with history of chronic atrial fibrillation not on AC, macular degeneration, hx alcohol use disorder, alzheimers disease, MDD, HTN, HLD, BPH, s/p cystoscopy 04/20 admitted for further management of influenza A/B ([facility] afib rvr with acute hypoxemic respiratory failure and UTI #Acute hypoxemic respiratory failure due to afib rvr, influenza -Continue supplemental o2 to maintain oximetry >92% -positive A&B at [facility], negative at [facility] [place] -chest Ct negative for acute abnormality -check viral respiratory panel -treat as below #Chronic atrial fibrillation with rvr- rate controlled on admission following IVF -likely triggered by infection/dehydration -EKG shows afib rvr rate 138, nonspecific st/twave abnormality -not on ac -not on rate control, rate 86 on admission -monitor on telemetry #Influenza A and B -positive at [facility] -continue tamiflu (initiated 04/24) -symptomatic management #Acute UTI s/p cystoscopy 04/20 with sepsis -leukocytosis, fevers. Lactic acidosis due to hypoperfusion from afib rvr and dehydration, not severe sepsis. no hypotension -continue ctx (initiated 04/25) -follow cultures #Elevated troponins- likely demand due to afib rvr and hypoxia -initial 73, repeat 287 -ekg without acute ischemic changes -no chest pain -monitor on telemetry #Acute lactic acidosis -due to hypoperfusion from afib rvr/hypoxia and dehydration, not severe sepsis -resolved with ivf #HTN -bp reasonably controlled -resume home bp meds #Alzheimers dementia with mood disturbance -mentation baseline -continue home meds #BPH -continue flomax DVT prophylaxis- lovenox dni pt requires inpt stay at least 2 midnights due to acute hypoxemic respiratory failure due to afib rvr and uti with sepsis requiring supplemental o2 and iv abx Quality Stroke Does the patient have a stroke diagnosis?: No VTE Prior VTE?: No VTE Risk Level:: Medical - moderate - high VTE Device Contraindication: Treatment Not Tolerated VTE Drug Contraindication: N/A - Med Ordered
--- NOTE | 2023-04-26 11:20 | PC.NURSE ---
straight catheterization performed. 300ml of dark yellow/cloudy urine noted immediately post output. pt tolerated well. UA obtained/sent to lab.
[2023-04-26 11:28] LABS: Appearance Urine Turbid; Color Urine Dark Yellow; Glucose Urine UA Negative (Negative); Leukocyte Esterase Urine Large (3+) (Negative); Nitrite Urine Positive (Negative); Specific Gravity - Urine 1.015 (1.005-1.025); UMIC TRIGGER UACC YES; Urine Blood Large (3+) (Negative); Urine Ketones Negative (Negative); Urine Protein 100 (2+) mg/dL (Neg-Trace)
[2023-04-26 11:45] LABS: Bacteria Urine 2+ (None Seen); Hyaline Casts Urine 0-2 /LPF (0-2); UACC Culture Trigger YES; WBC Urine >50 /HPF (0-5)
[2023-04-26] MEDS: Enoxaparin Sodium 40 MG/0.4 ML SYRINGE SUBCUT (12:29)
[2023-04-26] MEDS: Oseltamivir Phosphate 75 MG CAPSULE PO ×2 (12:29→22:49)
[2023-04-26] MEDS: 0.9 % Sodium Chloride Flush 3 ML SYRINGE IVFLUSH ×2 (17:08→21:48)
[2023-04-26] MEDS: Docusate Sodium 100 MG CAPSULE PO (17:10)
--- NOTE | 2023-04-26 20:29 | PC.NURSE ---
This keno writer/runner assumed care of this Pt at 1900. Report given from Melissa MORRIS. Pt A&O to self and place, forgetful, denies any pain. Pt on 2L via NC, SpO2 97%, RR 16. Lung sounds diminished. A-fib on monitor 70s-100 for HR. Pt incontinent of urine and stool, incontinent care provided. Skin intact. Report complete, Pt will be transported to to room 477 by sterilization tech. Pt aware of plan.
[2023-04-26] MEDS: Tamsulosin HCL 0.4 MG CAPSULE PO (21:47)
[2023-04-26] MEDS: traMADoL HCL 50 MG TABLET PO (21:47)
[2023-04-26] MEDS: Atorvastatin Calcium 10 MG TABLET PO (21:47)
[2023-04-26] MEDS: Methenamine Hippurate 1 GM TABLET PO (21:47)
[2023-04-26] MEDS: cloNIDine HCL 0.2 MG TABLET PO (21:48)
[2023-04-27 03:29] VITALS: BP 144/85; PULSE 76; RESP 19; TEMP 36.4; O2SAT 95
[2023-04-27 06:54] LABS: MANUAL DIFF FLAG NO
[2023-04-27 06:59] LABS: Basophils Absolute Auto 0.1 X10*3/uL (0.0-0.2); Basophils Percent Auto 0.4 % (0-2); Eosinophils Absolute Auto 0.4 X10*3/uL (0.0-0.4); Eosinophils Percent Auto 3.2 % (0-4); Hematocrit 38.8 % (42.0-52.0); Hemoglobin 12.7 g/dl (14.0-18.0); Imm Gran Abs Auto 0.06 X10*3/uL (0.00-0.03); Imm Gran Pct Auto 0.5 % (0.0-0.4); Lymphocytes Absolute Auto 1.1 X10*3/uL (1.2-4.9); Lymphocytes Percent Auto 9.5 % (20-40); Mean Corpuscular HGB Conc 32.7 g/dl (31.0-36.0); Mean Corpuscular Volume 91.7 fL (80.0-98.0); Mean Platelet Volume 10.1 fL (9.4-12.4); Monocytes Absolute Auto 1.4 X10*3/uL (0.1-1.2); Monocytes Percent Auto 11.6 % (2-11); Neutrophils Absolute Auto 8.8 x10*3/uL (2.0-8.3); Neutrophils Percent Auto 74.8 % (45-73); Platelet Count 234 X10*3/uL (160-400); Red Blood Count 4.23 X10*6/uL (4.60-5.80); Red Cell Distribution Width 15.9 % (11.0-16.0); White Blood Count 11.8 X10*3/uL (4.8-10.8)
[2023-04-27 07:18] VITALS: BP 146/86; PULSE 83; RESP 20; TEMP 36.1; O2SAT 97
[2023-04-27 07:21] LABS: Anion Gap 10 (12-20); Blood Urea Nitrogen 21 mg/dL (9-16); Calcium 9.3 mg/dL (8.4-10.2); Carbon Dioxide 25 mmol/L (22-29); Chloride 107 mmol/L (96-108); Creatinine Clr Calc Pharmacy 96.2; Estimated Glomerular Filt Rate > 60; Glucose Random 117 mg/dL (60-115); Potassium 4.2 mmol/L (3.3-5.1); Sodium 138 mmol/L (135-145)
[2023-04-27] MEDS: Methenamine Hippurate 1 GM TABLET PO ×2 (08:22→19:52)
[2023-04-27] MEDS: cefTRIAXone sodium 1 GM in 0.9 % Sodium Chloride 50 ML IV (08:22)
[2023-04-27] MEDS: Folic Acid 1 MG TABLET PO (08:22)
[2023-04-27] MEDS: Sertraline HCL 50 MG TABLET PO (08:23)
[2023-04-27] MEDS: Finasteride 5 MG TABLET PO (08:23)
[2023-04-27] MEDS: Ascorbic Acid 500 MG TABLET 1000 MG PO (08:23)
[2023-04-27] MEDS: amLODIPine Besylate 5 MG TABLET PO (08:23)
[2023-04-27] MEDS: Furosemide 20 MG TABLET PO (08:23)
[2023-04-27] MEDS: polyethylene glycoL 3350 17 GM POWD.PACK PO (08:23)
[2023-04-27] MEDS: 0.9 % Sodium Chloride Flush 3 ML SYRINGE IVFLUSH ×3 (08:23→19:53)
[2023-04-27] MEDS: lisinopriL 40 MG TABLET PO (08:23)
[2023-04-27] MEDS: Potassium Chloride ER 20 MEQ TAB.ER.PRT PO (08:23)
[2023-04-27] MEDS: Aspirin Enteric Coated 81 MG TABLET.DR PO (08:23)
[2023-04-27] MEDS: Sertraline HCL 25 MG TABLET PO (08:23)
[2023-04-27] MEDS: cloNIDine HCL 0.2 MG TABLET PO ×2 (08:23→19:53)
[2023-04-27] MEDS: Docusate Sodium 100 MG CAPSULE PO ×2 (08:23→15:39)
[2023-04-27 09:58] LABS: Adenovirus PCR Not Detected (Not Detect.); Bordetella parapertussis PCR Not Detected (Not Detect.); Bordetella pertussis PCR Not Detected (Not Detect.); Chlamydia pneumoniae PCR Not Detected (Not Detect.); Coronavirus 229E PCR Not Detected (Not Detect.); Coronavirus HKU1 PCR Not Detected (Not Detect.); Coronavirus NL63 PCR Not Detected (Not Detect.); Coronavirus OC43 PCR Not Detected (Not Detect.); Human metapneumovirus PCR Not Detected (Not Detect.); Influenza A PCR Not Detected (Not Detect.); Influenza B PCR Not Detected (Not Detect.); Mycoplasma pneumoniae PCR Not Detected (Not Detect.); Parainfluenza 1 PCR Not Detected (Not Detect.); Parainfluenza 2 PCR Not Detected (Not Detect.); Parainfluenza 3 PCR Not Detected (Not Detect.); Parainfluenza 4 PCR Not Detected (Not Detect.); RSV PCR Not Detected (Not Detect.); Rhino/Enterovirus PCR Not Detected (Not Detect.)
[2023-04-27 10:43] LABS: SARS-CoV-2 PCR Not Detected (Not Detect.)
[2023-04-27 11:11] VITALS: BP 146/84; PULSE 93; RESP 18; TEMP 36.3; O2SAT 97
[2023-04-27] MEDS: Enoxaparin Sodium 40 MG/0.4 ML SYRINGE SUBCUT (11:36)
[2023-04-27] MEDS: Oseltamivir Phosphate 75 MG CAPSULE PO ×2 (11:36→23:12)
--- NOTE | 2023-04-27 12:57 | P.PNIM_ITS ---
Subjective Subjective Date of Service: 04/27/23 Interval History: seen and evaluated this morning feels better overall denies fever or chills HR better controlled Review of Systems Review of Systems: Yes all other systems are reviewed and are negative Physical Exam 2 Vital Signs: Vital Signs: Last Vital Signs Temp 97.4 F 04/27/23 11:11 Pulse 93 04/27/23 11:11 Resp 18 04/27/23 11:11 BP 146/84 H 04/27/23 11:11 Pulse Ox 97 04/27/23 11:11 O2 Del Method Room Air 04/27/23 11:11 O2 Flow Rate 2 04/27/23 03:29 Oxygen Flow Rate 2 04/26/23 06:04 BMI result Body Mass Index 35.8 Const: Other: Constitutional : Awake, interactive, not in distress Neck : Normal inspection, Supple Cardiovascular : irregular irregular, no JVP, no lower extremity edema Respiratory : fair bilateral air entry, no crackles, wheezes or rhonchi Gastrointestinal: soft, lax, Normal bowel sounds, Non tender Skin : Warm, Dry Neurological : Alert & oriented to self and place, No focal deficit , Objective Data Active Medications Acetaminophen (Acetaminophen 325 Mg Tablet) 650 mg PO Q6H PRN PRN Reason: Pain, Mild (Pain Scale 1-3) Amlodipine Besylate (Amlodipine Besylate 5 Mg Tablet) 5 mg PO DAILY [facility]; Protocol Last Admin: 04/27/23 08:23 Dose: 5 mg Documented By: CHAYA Ascorbic Acid (Ascorbic Acid 500 Mg Tablet) 1,000 mg PO DAILY [facility] Last Admin: 04/27/23 08:23 Dose: 1,000 mg Documented By: CHAYA Aspirin (Aspirin Enteric Coated 81 Mg Tablet.Dr) 81 mg PO DAILY [facility] Last Admin: 04/27/23 08:23 Dose: 81 mg Documented By: CHAYA Atorvastatin Calcium (Atorvastatin Calcium 10 Mg Tablet) 10 mg PO BEDTIME [facility] Last Admin: 04/26/23 21:47 Dose: 10 mg Documented By: ERNIE Bisacodyl (Bisacodyl 10 Mg Supp.Rect) 10 mg VT DAILY PRN PRN Reason: Constipation Clonidine HCl (Clonidine Hcl 0.2 Mg Tablet) 0.2 mg PO BID [facility]; Protocol Last Admin: 04/27/23 08:23 Dose: 0.2 mg Documented By: CHAYA Docusate Sodium (Docusate Sodium 100 Mg Capsule) 100 mg PO BID@0900,1700 [facility] Last Admin: 04/27/23 08:23 Dose: 100 mg Documented By: CHAYA Enoxaparin Sodium (Enoxaparin Sodium 40 Mg/0.4 Ml Syringe) 40 mg SUBCUT Q24H [facility] Last Admin: 04/27/23 11:36 Dose: 40 mg Documented By: CHAYA Finasteride (Finasteride 5 Mg Tablet) 5 mg PO DAILY [facility] Last Admin: 04/27/23 08:23 Dose: 5 mg Documented By: CHAYA Folic Acid (Folic Acid 1 Mg Tablet) 1 mg PO DAILY [facility] Last Admin: 04/27/23 08:22 Dose: 1 mg Documented By: CHAYA Furosemide (Furosemide 20 Mg Tablet) 20 mg PO DAILY [facility]; Protocol Last Admin: 04/27/23 08:23 Dose: 20 mg Documented By: CHAYA Guaifenesin (Guaifenesin 200 Mg/10 Ml 10 Ml Liquid) 10 ml PO Q4H PRN PRN Reason: Cough Ceftriaxone Sodium 1 gm/ (Sodium Chloride) 50 mls @ 100 mls/hr IV Q24H [facility] Last Infusion: 04/27/23 08:52 Dose: Infused Documented By: CHAYA Lidocaine (Lidocaine 4 % Patch Adh..Patch) 1 patch TRANSDERMA DAILY PRN; Protocol PRN Reason: shoulder pain Lisinopril (Lisinopril 40 Mg Tablet) 40 mg PO DAILY [facility]; Protocol Last Admin: 04/27/23 08:23 Dose: 40 mg Documented By: CHAYA Methenamine Hippurate (Methenamine Hippurate 1 Gm Tablet) 1 gm PO BID [facility] Last Admin: 04/27/23 08:22 Dose: 1 gm Documented By: CHAYA Ondansetron HCl (Ondansetron Hcl 4 Mg/2 Ml Vial) 4 mg IVPUSH Q8H PRN PRN Reason: Nausea and Vomiting Oseltamivir Phosphate (Oseltamivir Phosphate 75 Mg Capsule) 75 mg PO Q12H [facility] Stop: 04/29/23 23:46 Last Admin: 04/27/23 11:36 Dose: 75 mg Documented By: CHAYA Polyethylene Glycol (Polyethylene Glycol 3350 17 Gm Powd.Pack) 17 gm PO Q48H [facility] Last Admin: 04/27/23 08:23 Dose: 17 gm Documented By: CHAYA Potassium Chloride (Potassium Chloride Er 20 Meq Tab.Er.Prt) 20 meq PO DAILY [facility] Last Admin: 04/27/23 08:23 Dose: 20 meq Documented By: CHAYA Senna (Sennosides 8.6 Mg Tablet) 17.2 mg PO BEDTIME PRN PRN Reason: Constipation Senna (Sennosides 8.6 Mg Tablet) 8.6 mg PO BEDTIME PRN PRN Reason: Constipation Sertraline HCl (Sertraline Hcl 25 Mg Tablet) 25 mg PO DAILY [facility] Last Admin: 04/27/23 08:23 Dose: 25 mg Documented By: CHAYA Sertraline HCl (Sertraline Hcl 50 Mg Tablet) 50 mg PO DAILY [facility] Last Admin: 04/27/23 08:23 Dose: 50 mg Documented By: CHAYA Sodium Biphosphate/Sodium Phosphate (Sodium Phosphate,Mcminn-Dibasic 133 Ml Enema) 133 ml VT DAILY PRN PRN Reason: Constipation Sodium Chloride (0.9 % Sodium Chloride Flush 3 Ml Syringe) 3 ml IVFLUSH QSHIFT [facility] Last Admin: 04/27/23 08:23 Dose: 3 ml Documented By: CHAYA Tamsulosin HCl (Tamsulosin Hcl 0.4 Mg Capsule) 0.4 mg PO BEDTIME [facility] Last Admin: 04/26/23 21:47 Dose: 0.4 mg Documented By: ERNIE Tramadol HCl (Tramadol Hcl 50 Mg Tablet) 50 mg PO BEDTIME [facility] Last Admin: 04/26/23 21:47 Dose: 50 mg Documented By: ERNIE Labs 04/27/23 05:50 04/27/23 05:50 Labs: Laboratory Results - last 24 hr 04/26/23 04/27/23 20:20 05:50 MCV 91.7 MCH 30.0 MCHC 32.7 RDW 15.9 Plt Count 234 MPV 10.1 Immature Gran % (Auto) 0.5 H Neut % (Auto) 74.8 H Lymph % (Auto) 9.5 L Mcminn % (Auto) 11.6 H Eos % (Auto) 3.2 Baso % (Auto) 0.4 Lymph # (Auto) 1.1 L Mcminn # (Auto) 1.4 H Eos # (Auto) 0.4 Baso # (Auto) 0.1 Abs Immat Gran (auto) 0.06 H Absolute Neuts (auto) 8.8 H Absolute Nucleated RBC 0.000 Nucleated RBC % (auto) 0.0 Anion Gap 10 L Estim Creat Clear Calc 96.2 Estimated GFR > 60 Random Glucose 117 H Calcium 9.3 Respiratory Panel [place] See Note Adenovirus (Rapid PCR) Not Detected B.pert (TEM-PCR) Not Detected B.parapertussis DNA PCR Not Detected C. pneumoniae DNA (PCR) Not Detected Coronavirus OC43 (PCR) Not Detected Coronavirus HKU1 (PCR) Not Detected Coronavirus 229E (PCR) Not Detected Coronavirus NL63 (PCR) Not Detected Human Metapneumovir PCR Not Detected Influenza A (RT-PCR) Not Detected Influenza B (RT-PCR) Not Detected M. pneumoniae (PCR) Not Detected Parainfluenza 1 (PCR) Not Detected Parainfluenza 2 (PCR) Not Detected Parainfluenza 3 (PCR) Not Detected Parainfluenza 4 (PCR) Not Detected RSV (PCR) Not Detected Entero/Rhino (PCR) Not Detected SARS-CoV-2 RNA (RT-PCR) Not Detected Microbiology Microbiology Results: Microbiology 04/26/23 06:21 Blood Culture - Preliminary Blood - Venous No growth after 24 hours. 04/26/23 Unknown Urine Culture - Preliminary Urine Catheterized - Straight Catheter Culture in progress. 04/26/23 06:21 Blood Culture - Preliminary Blood - Venous No growth after 24 hours. Assessment and Plan (1) Acute hypoxemic respiratory failure: Status: Acute (2) Acute dehydration: Status: Acute (3) Atrial fibrillation with rapid ventricular response: Status: Acute (4) Acute UTI: Status: Acute Plan 88 year old male with history of chronic atrial fibrillation not on AC, macular degeneration, hx alcohol use disorder, alzheimers disease, MDD, HTN, HLD, BPH, s/p cystoscopy 04/20 admitted for further management of [facility] A[facility]B [facility] afib rvr with acute hypoxemic respiratory failure and UTI #Acute hypoxemic respiratory failure due to Influenza wean down as tolerated [facility] negative at [facility] chest Ct negative for acute abnormality negative viral respiratory panel continue tamiflu (initiated 04/24) symptomatic management #Chronic atrial fibrillation with rvr rate better controlled not on AC or rate control on telemetry #Acute UTI s/p cystoscopy 04/20 with sepsis pending cultures continue Ceftriaxone (initiated 04/25) follow cultures #Elevated troponins- likely demand due to afib rvr and hypoxia initial 73, repeat 287 ekg without acute ischemic changes no chest pain monitor on telemetry #Acute lactic acidosis resolved with ivf #HTN bp reasonably controlled resume home bp meds #Alzheimers dementia with mood disturbance mentation baseline continue home meds #BPH continue flomax DVT prophylaxis Lovenox PT requires inpt stay overnight due to acute hypoxemic respiratory failure due to afib rvr and uti with sepsis requiring supplemental o2 and iv abx Quality Stroke Does the patient have a stroke diagnosis?: No VTE Prior VTE?: No VTE Risk Level:: Medical - moderate - high VTE Device Contraindication: Treatment Not Tolerated VTE Drug Contraindication: N/A - Med Ordered
--- NOTE | 2023-04-27 13:52 | MHC.CM.PN ---
IMM 04/27/23 DELIVERED TO PT'S [facility]/PRIMARY CONTACT PHILLY, PER PHILLY IMM TO BE LEFT AT BEDSIDE FOR HCP WHO WILL BE IN TO SEE PT, CM HAD ATTEMPTED TO CONTACT HCP HOWEVER THERE WAS NO ANSWER ON ONE LINE AND THE OTHER NUMBER LISTED WAS NO LONGER IN SERVICE. PER PHILLY PLAN WILL BE FOR PT TO RETURN TO [facility], HCP ON FILE FROM PREVIOUS ADMIT, PCP COURTNEY LOVELL MD
[2023-04-27 15:17] VITALS: BP 147/90; PULSE 82; RESP 18; TEMP 36.5; O2SAT 95
[2023-04-27 19:16] VITALS: BP 136/78; PULSE 90; RESP 18; TEMP 36.5; O2SAT 95
[2023-04-27] MEDS: Tamsulosin HCL 0.4 MG CAPSULE PO (19:52)
[2023-04-27] MEDS: traMADoL HCL 50 MG TABLET PO (19:52)
[2023-04-27] MEDS: Atorvastatin Calcium 10 MG TABLET PO (19:52)
[2023-04-27 23:38] VITALS: BP 140/82; PULSE 73; RESP 17; TEMP 36.1; O2SAT 93
[2023-04-28 03:28] VITALS: BP 133/74; PULSE 74; RESP 18; TEMP 36.2; O2SAT 93
[2023-04-28 07:16] VITALS: BP 134/85; PULSE 91; RESP 18; TEMP 36.3; O2SAT 94
[2023-04-28] MEDS: lisinopriL 40 MG TABLET PO (07:54)
[2023-04-28] MEDS: cefTRIAXone sodium 1 GM in 0.9 % Sodium Chloride 50 ML IV (07:54)
[2023-04-28] MEDS: Furosemide 20 MG TABLET PO (07:54)
[2023-04-28] MEDS: Methenamine Hippurate 1 GM TABLET PO ×2 (07:54→21:19)
[2023-04-28] MEDS: Potassium Chloride ER 20 MEQ TAB.ER.PRT PO (07:54)
[2023-04-28] MEDS: Aspirin Enteric Coated 81 MG TABLET.DR PO (07:55)
[2023-04-28] MEDS: Sertraline HCL 50 MG TABLET PO (07:55)
[2023-04-28] MEDS: Sertraline HCL 25 MG TABLET PO (07:55)
[2023-04-28] MEDS: Finasteride 5 MG TABLET PO (07:55)
[2023-04-28] MEDS: amLODIPine Besylate 5 MG TABLET PO (07:55)
[2023-04-28] MEDS: cloNIDine HCL 0.2 MG TABLET PO ×2 (07:55→21:19)
[2023-04-28] MEDS: Folic Acid 1 MG TABLET PO (07:55)
[2023-04-28] MEDS: Ascorbic Acid 500 MG TABLET 1000 MG PO (07:55)
[2023-04-28] MEDS: Docusate Sodium 100 MG CAPSULE PO ×2 (07:55→18:06)
[2023-04-28] MEDS: 0.9 % Sodium Chloride Flush 3 ML SYRINGE IVFLUSH ×3 (07:56→21:20)
[2023-04-28 08:36] LABS: Hematocrit 36.3 % (42.0-52.0); Hemoglobin 12.1 g/dl (14.0-18.0); Mean Corpuscular HGB Conc 33.3 g/dl (31.0-36.0); Mean Corpuscular Hemoglobin 29.7 pg (27.0-33.0); Mean Platelet Volume 9.7 fL (9.4-12.4); Platelet Count 221 X10*3/uL (160-400); Red Blood Count 4.08 X10*6/uL (4.60-5.80); Red Cell Distribution Width 15.8 % (11.0-16.0); White Blood Count 8.9 X10*3/uL (4.8-10.8)
[2023-04-28 08:49] LABS: Anion Gap 10 (12-20); Blood Urea Nitrogen 16 mg/dL (9-16); Carbon Dioxide 24 mmol/L (22-29); Chloride 108 mmol/L (96-108); Creatinine Clr Calc Pharmacy 109.9; Estimated Glomerular Filt Rate > 60; Glucose Random 105 mg/dL (60-115); Potassium 3.7 mmol/L (3.3-5.1); Sodium 138 mmol/L (135-145)
--- NOTE | 2023-04-28 10:38 | HO.PM.IMPN ---
Subjective Subjective Date of Service: 04/28/23 Interval History: no complaints Physical Exam Vital Signs: Vital Signs: Last Vital Signs Temp 97.3 F 04/28/23 07:16 Pulse 91 04/28/23 07:16 Resp 18 04/28/23 07:16 BP 134/85 04/28/23 07:16 Pulse Ox 94 04/28/23 07:16 O2 Del Method Room Air 04/28/23 07:16 O2 Flow Rate 2 04/27/23 03:29 Oxygen Flow Rate 2 04/26/23 06:04 BMI result Body Mass Index 35.8 Const: Other: Constitutional : Awake, interactive, not in distress Neck : Normal inspection, Supple Cardiovascular : irregular irregular, no JVP, no lower extremity edema Respiratory : fair bilateral air entry, no crackles, wheezes or rhonchi Gastrointestinal: soft, lax, Normal bowel sounds, Non tender Skin : Warm, Dry Neurological : Alert & oriented to self and place, No focal deficit , Objective Data Active Medications Acetaminophen (Acetaminophen 325 Mg Tablet) 650 mg PO Q6H PRN PRN Reason: Pain, Mild (Pain Scale 1-3) Amlodipine Besylate (Amlodipine Besylate 5 Mg Tablet) 5 mg PO DAILY [facility]; Protocol Last Admin: 04/28/23 07:55 Dose: 5 mg Documented By: ALEX Ascorbic Acid (Ascorbic Acid 500 Mg Tablet) 1,000 mg PO DAILY [facility] Last Admin: 04/28/23 07:55 Dose: 1,000 mg Documented By: ALEX Aspirin (Aspirin Enteric Coated 81 Mg Tablet.) 81 mg PO DAILY [facility] Last Admin: 04/28/23 07:55 Dose: 81 mg Documented By: ALEX Atorvastatin Calcium (Atorvastatin Calcium 10 Mg Tablet) 10 mg PO BEDTIME [facility] Last Admin: 04/27/23 19:52 Dose: 10 mg Documented By: ERNIE Bisacodyl (Bisacodyl 10 Mg Supp.Rect) 10 mg AR DAILY PRN PRN Reason: Constipation Clonidine HCl (Clonidine Hcl 0.2 Mg Tablet) 0.2 mg PO BID [facility]; Protocol Last Admin: 04/28/23 07:55 Dose: 0.2 mg Documented By: ALEX Docusate Sodium (Docusate Sodium 100 Mg Capsule) 100 mg PO BID@0900,1700 [facility] Last Admin: 04/28/23 07:55 Dose: 100 mg Documented By: ALEX Enoxaparin Sodium (Enoxaparin Sodium 40 Mg/0.4 Ml Syringe) 40 mg SUBCUT Q24H [facility] Last Admin: 04/27/23 11:36 Dose: 40 mg Documented By: CHAYA Finasteride (Finasteride 5 Mg Tablet) 5 mg PO DAILY [facility] Last Admin: 04/28/23 07:55 Dose: 5 mg Documented By: ALEX Folic Acid (Folic Acid 1 Mg Tablet) 1 mg PO DAILY [facility] Last Admin: 04/28/23 07:55 Dose: 1 mg Documented By: ALEX Furosemide (Furosemide 20 Mg Tablet) 20 mg PO DAILY [facility]; Protocol Last Admin: 04/28/23 07:54 Dose: 20 mg Documented By: ALEX Guaifenesin (Guaifenesin 200 Mg/10 Ml 10 Ml Liquid) 10 ml PO Q4H PRN PRN Reason: Cough Ceftriaxone Sodium 1 gm/ (Sodium Chloride) 50 mls @ 100 mls/hr IV Q24H [facility] Last Infusion: 04/28/23 08:48 Dose: Infused Documented By: ALEX Lidocaine (Lidocaine 4 % Patch Adh..Patch) 1 patch TRANSDERMA DAILY PRN; Protocol PRN Reason: shoulder pain Lisinopril (Lisinopril 40 Mg Tablet) 40 mg PO DAILY [facility]; Protocol Last Admin: 04/28/23 07:54 Dose: 40 mg Documented By: ALEX Methenamine Hippurate (Methenamine Hippurate 1 Gm Tablet) 1 gm PO BID [facility] Last Admin: 04/28/23 07:54 Dose: 1 gm Documented By: ALEX Ondansetron HCl (Ondansetron Hcl 4 Mg/2 Ml Vial) 4 mg IVPUSH Q8H PRN PRN Reason: Nausea and Vomiting Oseltamivir Phosphate (Oseltamivir Phosphate 75 Mg Capsule) 75 mg PO Q12H [facility] Stop: 04/29/23 23:46 Last Admin: 04/27/23 23:12 Dose: 75 mg Documented By: ERNIE Polyethylene Glycol (Polyethylene Glycol 3350 17 Gm Powd.Pack) 17 gm PO Q48H [facility] Last Admin: 04/27/23 08:23 Dose: 17 gm Documented By: CHAYA Potassium Chloride (Potassium Chloride Er 20 Meq Tab.Er.Prt) 20 meq PO DAILY [facility] Last Admin: 04/28/23 07:54 Dose: 20 meq Documented By: ALEX Senna (Sennosides 8.6 Mg Tablet) 17.2 mg PO BEDTIME PRN PRN Reason: Constipation Senna (Sennosides 8.6 Mg Tablet) 8.6 mg PO BEDTIME PRN PRN Reason: Constipation Sertraline HCl (Sertraline Hcl 25 Mg Tablet) 25 mg PO DAILY [facility] Last Admin: 04/28/23 07:55 Dose: 25 mg Documented By: ALEX Sertraline HCl (Sertraline Hcl 50 Mg Tablet) 50 mg PO DAILY [facility] Last Admin: 04/28/23 07:55 Dose: 50 mg Documented By: ALEX Sodium Biphosphate/Sodium Phosphate (Sodium Phosphate,[place]yer-Dibasic 133 Ml Enema) 133 ml AR DAILY PRN PRN Reason: Constipation Sodium Chloride (0.9 % Sodium Chloride Flush 3 Ml Syringe) 3 ml IVFLUSH QSHIFT [facility] Last Admin: 04/28/23 07:56 Dose: 3 ml Documented By: ALEX Tamsulosin HCl (Tamsulosin Hcl 0.4 Mg Capsule) 0.4 mg PO BEDTIME [facility] Last Admin: 04/27/23 19:52 Dose: 0.4 mg Documented By: ERNIE Tramadol HCl (Tramadol Hcl 50 Mg Tablet) 50 mg PO BEDTIME [facility] Last Admin: 04/27/23 19:52 Dose: 50 mg Documented By: ERNIE Labs 04/28/23 08:12 04/28/23 08:12 Labs: Laboratory Results - last 24 hr 04/26/23 04/28/23 20:20 08:12 MCV 89.0 MCH 29.7 MCHC 33.3 RDW 15.8 Plt Count 221 MPV 9.7 Absolute Nucleated RBC 0.000 Nucleated RBC % (auto) 0.0 Anion Gap 10 L Estim Creat Clear Calc 109.9 Estimated GFR > 60 Random Glucose 105 Calcium 9.0 Respiratory Panel [place] See Note Adenovirus (Rapid PCR) Not Detected B.pert (TEM-PCR) Not Detected B.parapertussis DNA PCR Not Detected C. pneumoniae DNA (PCR) Not Detected Coronavirus OC43 (PCR) Not Detected Coronavirus HKU1 (PCR) Not Detected Coronavirus 229E (PCR) Not Detected Coronavirus NL63 (PCR) Not Detected Human Metapneumovir PCR Not Detected Influenza A (RT-PCR) Not Detected Influenza B (RT-PCR) Not Detected M. pneumoniae (PCR) Not Detected Parainfluenza 1 (PCR) Not Detected Parainfluenza 2 (PCR) Not Detected Parainfluenza 3 (PCR) Not Detected Parainfluenza 4 (PCR) Not Detected RSV (PCR) Not Detected Entero/Rhino (PCR) Not Detected SARS-CoV-2 RNA (RT-PCR) Not Detected Microbiology Microbiology Results: Microbiology 04/26/23 Unknown Urine Culture - Preliminary Urine Catheterized - Straight Catheter Gram negative marisol 04/26/23 06:21 Blood Culture - Preliminary Blood - Venous No growth after 48 hours. 04/26/23 06:21 Blood Culture - Preliminary Blood - Venous No growth after 48 hours. Assessment and Plan (1) Acute hypoxemic respiratory failure: Status: Acute (2) Acute dehydration: Status: Acute (3) Atrial fibrillation with rapid ventricular response: Status: Acute (4) Acute UTI: Status: Acute Plan 88M PMH chronic atrial fibrillation not on AC, macular degeneration, hx alcohol use disorder, alzheimers disease, MDD, HTN, HLD, BPH, s/p cystoscopy 04/20 admitted for further management of influenza A/B [facility] afib rvr with acute hypoxemic respiratory failure and UTI Acute hypoxemic respiratory failure due to Influenza now on room air positive A&B at [facility], negative at [facility] negative viral respiratory panel continue tamiflu (initiated 04/24) symptomatic management Chronic atrial fibrillation with rvr rate better controlled not on AC or rate control on telemetry Acute UTI s/p cystoscopy 04/20 with sepsis pending cultures continue Ceftriaxone (initiated 04/25) follow cultures Elevated troponins- likely demand due to afib rvr and hypoxia initial 73, repeat 287 ekg without acute ischemic changes no chest pain monitor on telemetry Alzheimers dementia with mood disturbance mentation baseline continue home meds BPH continue flomax DVT prophylaxis Lovenox reason for continued hospitalization: awaiting cultures Quality Stroke Does the patient have a stroke diagnosis?: No VTE Prior VTE?: No VTE Risk Level:: Medical - moderate - high VTE Device Contraindication: Treatment Not Tolerated VTE Drug Contraindication: N/A - Med Ordered
--- NOTE | 2023-04-28 10:42 | MHC.CM.PN ---
Addendum entered by Radha Willis RN 04/28/23 12:23: DC CANCELLED D/T FINAL URINE CULTURES PENDING Original Note: EMR REVIWED, PER HOSPITALIST PT WILL BE CLEARED FOR DC TOMORROW 04/28 ONCE FINAL URINE CULTURE RESULTS ARE IN, PT'S HCP IRINA UPDATED AT 10:40AM [id number], [facility] ALSO UPDATED ON PLAN, CM WILL CONT TO FOLLOW DC NEEDS.
[2023-04-28 11:07] VITALS: BP 135/69; PULSE 72; RESP 20; TEMP 36.2; O2SAT 96
[2023-04-28] MEDS: Enoxaparin Sodium 40 MG/0.4 ML SYRINGE SUBCUT (11:24)
[2023-04-28] MEDS: Oseltamivir Phosphate 75 MG CAPSULE PO ×2 (11:25→23:43)
[2023-04-28 15:29] VITALS: BP 136/79; PULSE 78; RESP 18; TEMP 36.4; O2SAT 94
[2023-04-28 19:13] VITALS: BP 140/82; PULSE 91; RESP 17; TEMP 37.1; O2SAT 96
[2023-04-28] MEDS: Tamsulosin HCL 0.4 MG CAPSULE PO (21:19)
[2023-04-28] MEDS: traMADoL HCL 50 MG TABLET PO (21:19)
[2023-04-28] MEDS: Atorvastatin Calcium 10 MG TABLET PO (21:19)
[2023-04-28 23:31] VITALS: BP 150/85; PULSE 87; RESP 18; TEMP 37.1; O2SAT 94
[2023-04-29 04:00] VITALS: BP 139/75; PULSE 74; RESP 18; TEMP 36.3; O2SAT 95
[2023-04-29 08:00] VITALS: BP 187/87; PULSE 85; RESP 20; TEMP 36.6; O2SAT 95
[2023-04-29] MEDS: Furosemide 20 MG TABLET PO (09:05)
[2023-04-29] MEDS: Docusate Sodium 100 MG CAPSULE PO (09:05)
[2023-04-29] MEDS: Methenamine Hippurate 1 GM TABLET PO (09:05)
[2023-04-29] MEDS: Folic Acid 1 MG TABLET PO (09:05)
[2023-04-29] MEDS: lisinopriL 40 MG TABLET PO (09:05)
[2023-04-29] MEDS: Ascorbic Acid 500 MG TABLET 1000 MG PO (09:05)
[2023-04-29] MEDS: Sertraline HCL 25 MG TABLET PO (09:05)
[2023-04-29] MEDS: cefTRIAXone sodium 1 GM in 0.9 % Sodium Chloride 50 ML IV (09:06)
[2023-04-29] MEDS: amLODIPine Besylate 5 MG TABLET PO (09:06)
[2023-04-29] MEDS: Potassium Chloride ER 20 MEQ TAB.ER.PRT PO (09:06)
[2023-04-29] MEDS: Finasteride 5 MG TABLET PO (09:06)
[2023-04-29] MEDS: cloNIDine HCL 0.2 MG TABLET PO (09:06)
[2023-04-29] MEDS: Aspirin Enteric Coated 81 MG TABLET.DR PO (09:06)
[2023-04-29] MEDS: Sertraline HCL 50 MG TABLET PO (09:06)
[2023-04-29] MEDS: 0.9 % Sodium Chloride Flush 3 ML SYRINGE IVFLUSH (09:07)
--- NOTE | 2023-04-29 09:54 | PM.DS ---
DS: Providers Provider Date of Service: 04/29/23 Date of admission: 04/26/23 11:37 Primary care physician: Dorian Thompson MD DS: Diagnosis Discharge Diagnosis (1) Acute hypoxemic respiratory failure: Status: Acute (2) Acute dehydration: Status: Acute (3) Atrial fibrillation with rapid ventricular response: Status: Acute (4) Acute UTI: Status: Acute DS: Summary Hospital Course Hospital Course: from initial hpi: 88 year old male with history of chronic atrial fibrillation not on AC, macular degeneration, hx alcohol use disorder, alzheimers disease, MDD, HTN, HLD, BPH, s/p cystoscopy 04/20 [facility] evaluation of rigors, fevers of 100.4, and hypoxia in the 70s. He had been feeling unwell for several days with dyspnea and tested positive for influenza yesterday and was started on tamiflu. Today he states he is still dyspneic but denies st, congestion, abd pain, n/v/d, cough, lightheadedness, palpitations, chest pain. On arrival, febrile to 101.3, tachycardic to 144, hypoxic maintaining oximetry 95% on 2L supplemental O2. No hypotension. Milk leukocytosis 12.2. Renal function baseline, lytes normal. Initial lactic acid 2.9, repeat 1.7 following IVF. Initial trop 73.2, repeat 287.2. BNP 382. UA 3+ leuks, positive nitrites, 3+ blood, positive urinary sediment, 2+ bacteria. Negative influenza, rsv, covid 19. Chest CT shows chronic interstitial lung disease, no focal consolidation, cardiomegaly. EKG shows afib rvr rate 138, with nonspecific st/twave abnormality. In the ED, initially treated for presumed pneumonia with ctx and azithromycin as well as 2.5L IVF. hospital course: Patient was admitted for acute hypoxic failure due to influenza. He was able to be weaned to room air was treated with Tamiflu and course. Also noted to have acute tract infection, urine culture grew E coli. He was treated with ceftriaxone and will be discharged on 3 more days of cefuroxime. For chronic admission with rapid ventricular response, rate became better, he has not on chronotropic meds. Not on anticoagulation. Patient noted to have mildly elevated troponin likely demand ischemia. Was continued on Ativan. Alzheimer's dementia with mood disturbance was continued at baseline. For BPH was continued on Flomax. Patient is feeling better and [facility] Time Attestation Discharge Coordination Time (in mins): 35 Quality: Safe Use of Opioids Does Pt have an Active Cancer Diagnosis on the Problem List?: No Quality: Stroke Does the patient have a stroke diagnosis?: No Physical Exam Vital Signs: Vital Signs: Last Vital Signs Temp 97.9 F 04/29/23 08:00 Pulse 85 04/29/23 08:00 Resp 20 04/29/23 08:00 BP 187/87 H 04/29/23 08:00 Pulse Ox 95 04/29/23 08:00 O2 Del Method Room Air 04/29/23 08:00 O2 Flow Rate 2 04/27/23 03:29 Oxygen Flow Rate 2 04/26/23 06:04 BMI result Body Mass Index 35.8 Const: Other: Constitutional : Awake, interactive, not in distress Neck : Normal inspection, Supple Cardiovascular : irregular irregular, no JVP, no lower extremity edema Respiratory : fair bilateral air entry, no crackles, wheezes or rhonchi Gastrointestinal: soft, lax, Normal bowel sounds, Non tender Skin : Warm, Dry Neurological : Alert & oriented to self and place, No focal deficit , DS: Data Data Completed and Pending Labs on day of discharge: Preliminary micro results at discharge 04/26/23 06:21 Blood Culture - Preliminary Blood - Venous No growth after 48 hours. 04/26/23 06:21 Blood Culture - Preliminary Blood - Venous No growth after 48 hours. Discharge Plan Discharge Anticipated Discharge Date/Time: 04/29/23 10:35 Patient Disposition: Xfer SNF Discharge Diagnosis: uti Referrals: [facility] [Outside] - 1 Day (RESUMPTION OF LTC) Dorian Thompson MD [Primary Care Provider] - 1 Week Discharge Medications: New cefuroxime axetil 500 mg tablet 500 mg PO BID Qty: 6 0RF Continued sertraline 50 mg Tablet 50 mg PO DAILY ascorbic acid (vitamin C) 1,000 mg Tablet 1 g PO DAILY lidocaine 4 % Adhesive Patch,Medicated 1 patch TOPICAL DAILY PRN (Reason: shoulder pain) Rx Instructions: left shoulder, on 12 hours, off 12 hours tramadol 50 mg Tablet 50 mg PO BEDTIME methenamine hippurate 1 gram Tablet 1 g PO BID sertraline 25 mg Tablet 25 mg PO DAILY sennosides [senna] 8.6 mg Tablet 8.6 mg PO BEDTIME PRN (Reason: Constipation) bisacodyl 10 mg Suppository 10 mg MI DAILY PRN (Reason: Constipation) Rx Instructions: for no BM in 3 days and soft stool in rectum Fleet Enema 19-7 gram/118 mL Enema 118 ml MI DAILY PRN (Reason: Constipation) Rx Instructions: for no BM in 3 days furosemide 40 mg tablet 20 mg PO DAILY amlodipine 5 mg tablet 5 mg PO DAILY Rx Instructions: hold for SBP below 130 lisinopril 40 mg tablet 40 mg PO DAILY potassium chloride 20 mEq Tablet Extended Release 20 meq PO DAILY clonidine HCl 0.2 mg Tablet 0.2 mg PO BID Qty: 60 0RF Protocol: Hold for SBP< HOLD for SBP < : 90 Rx Instructions: hold for SBP below 120 acetaminophen 325 mg tablet 650 mg PO TID aspirin 81 mg tablet,delayed release (DR/EC) 81 mg PO DAILY docusate sodium 100 mg capsule 100 mg PO BID@0900,1700 folic acid 1 mg tablet 1 mg PO DAILY polyethylene glycol 3350 17 gram powder in packet 17 g PO Q48H tamsulosin 0.4 mg capsule 0.4 mg PO BEDTIME finasteride 5 mg tablet 5 mg PO DAILY simvastatin 20 mg tablet 20 mg PO BEDTIME Discharge Orders: Discharge Order (Routine); Ordered 04/29/23 Ordered By: Joe Gary Diet: Advance to usual diet Activity on Discharge: As tolerated Stand Alone Forms: Patient Portal Discharge page Care Plan Goals: recovery Health Concerns: flu, uti Plan of Treatment: 3 more days ceftin Assessment: see above
[2023-04-29] MEDS: Enoxaparin Sodium 40 MG/0.4 ML SYRINGE SUBCUT (11:14)
[2023-04-29] MEDS: Oseltamivir Phosphate 75 MG CAPSULE PO (11:15)
--- NOTE | 2023-04-29 11:18 | MHC.CM.PN ---
PT MEDICALLY CLEARED FOR DC BACK TO [facility] FOR BLS TRANSPORT.
[2023-04-29 11:38] VITALS: BP 146/76; PULSE 74; RESP 20; TEMP 36.7; O2SAT 96
== END 2023-04-29 13:21 | disposition intermediate care facility (04) | DRG 871 ==
LOC: HO.ED 08:40 → HO.EDOVER 11:43 → HO.IMC 19:28
PROVIDERS: Emergency Medicine; Student in an Organized Health Care Education/Training Program; Admitting Provider Physician Assistant; Emergency Provider Emergency Medicine Emergency Medical Services; PCP Internal Medicine; Visit Provider Internal Medicine
DX: A41.9 Sepsis, unspecified organism (principal); J96.01 Acute respiratory failure with hypoxia; N39.0 Urinary tract infection, site not specified; I48.20 Chronic atrial fibrillation, unspecified; E87.21 Acute metabolic acidosis; F02.83 Dementia in other diseases classified elsewhere, unspecified severity, with mood disturbance; B96.20 Unspecified Escherichia coli [E. coli] as the cause of diseases classified elsewhere; F10.11 Alcohol abuse, in remission; J10.1 Influenza due to other identified influenza virus with other respiratory manifestations; I10 Essential (primary) hypertension; G30.9 Alzheimer's disease, unspecified; N40.0 Benign prostatic hyperplasia without lower urinary tract symptoms; E86.0 Dehydration; Z20.822 Contact with and (suspected) exposure to COVID-19; Z79.82 Long term (current) use of aspirin; Z79.899 Other long term (current) drug therapy
CPT/HCPCS: 0241U; 36415; 71045; 71250; 80048; 80076; 81001; 83605; 83880; 84484; 85025; 85027; 87040; 87086; 87088; 87186; 87633; 93005; 99285; J0456; J0696; J1650

== ENCOUNTER → 2023-04-26 06:06 | Outpatient (BNV) | payer MEDICARE, MEDICAID, SELFPAY | PROVIDERS: Emergency Provider Emergency Medicine Emergency Medical Services; PCP Internal Medicine; Visit Provider Internal Medicine Cardiovascular Disease | DX: R06.02 Shortness of breath (principal) | CPT/HCPCS: 93010 ==

== ENCOUNTER → 2023-04-26 11:37 | Outpatient (BNV) | payer MEDICARE, MEDICAID, SELFPAY | PROVIDERS: Admitting Provider Physician Assistant; Emergency Provider Emergency Medicine Emergency Medical Services; PCP Internal Medicine; Visit Provider Physician Assistant | DX: J96.01 Acute respiratory failure with hypoxia (principal); E86.0 Dehydration; I48.91 Unspecified atrial fibrillation; N39.0 Urinary tract infection, site not specified | CPT/HCPCS: 99223; 99232; 99239 ==

== ENCOUNTER 2023-05-18 20:40 | Emergency (ER) | payer OTHER, SELFPAY ==
--- NOTE | ~2023-05-18 | XR_ITS ---
EXAMINATION: XR CHEST CLINICAL INFORMATION: Shortness of breath COMPARISON: CT chest from 04/26/2023, chest radiograph from 04/26/2023 TECHNIQUE: Frontal view of the chest was obtained. FINDINGS: Bilateral low lung volumes. Chronic interstitial prominence. Blunting of the right costophrenic recess may reflect a trace pleural effusion versus scarring. No pneumothorax. Trachea is midline. Cardiac mediastinal silhouette is stable. Aorta demonstrates tortuosity. Osseous structures are intact. Soft tissues are unremarkable. XR/XR chest 1V IMPRESSION: 1. Bilateral low lung volumes. 2. Chronic interstitial prominence. 3. Blunting of the right costophrenic recess may reflect a trace pleural effusion versus scarring.
--- NOTE | ~2023-05-18 | CT_ITS ---
EXAMINATION: CT HEAD WITHOUT CONTRAST CLINICAL INFORMATION: Altered mental status. COMPARISON: CT head from 05/07/2018. TECHNIQUE: Contiguous axial imaging was performed from the skull base to vertex without intravenous administration of contrast. This CT examination was performed using dose optimization techniques as appropriate, variously including the following: *Automated exposure control. *Adjustment of mA and/or kV according to patient size (this includes techniques or standardized protocols for targeted exams where dose is matched to indication/reason for exam; i.e. extremities or head). *Use of iterative reconstruction technique. DLP: 790 mGy-cm FINDINGS: There is no evidence of acute intracranial hemorrhage or edematous territorial infarction. Blum-white matter differentiation is preserved. Scattered and partially confluent hypoattenuation in the periventricular and deep white matter are consistent with moderate microangiopathy. Proportional prominence of the ventricles and sulcal spaces without evidence of obstructive hydrocephalus. No abnormal mass effect or midline shift. No extra-axial fluid collections. Calcific atherosclerotic disease of the intracranial internal carotid and vertebral arteries. No hyperdense vessel sign. No acute soft tissue or osseous abnormalities. Mild mucosal thickening of the paranasal sinuses. Mild leftward nasal septal deviation. The mastoid air cells and middle ear cavities are clear. Bilateral lens extractions. CT/CT head/brain wo IV con IMPRESSION: 1. No evidence of acute intracranial hemorrhage or edematous territorial infarction. 2. Moderate underlying microangiopathy and generalized cerebral volume loss.
[2023-05-18 20:48] VITALS: BP 140/90; BP 172/86; PULSE 113; PULSE 93; RESP 18; TEMP 37.4; O2SAT 99; BMI 33.1
--- NOTE | 2023-05-18 20:48 | ECG_ITS ---
Test Reason : ? SEPSIS Blood Pressure : / mmHG Vent. Rate : 090 BPM Atrial Rate : 000 BPM P-R Int : 000 ms QRS Dur : 098 ms QT Int : 376 ms P-R-T Axes : 000 -38 010 degrees QTc Int : 459 ms Atrial fibrillation with premature ventricular or aberrantly conducted complexes Left axis deviation Abnormal ECG When compared with ECG of 26-APR-2023 06:06, No significant changes seen Referred By: Reny Gilliam Electronically Signed By:FAVIAN PERERA MD
[2023-05-18 21:10] LABS: MANUAL DIFF FLAG NO
[2023-05-18 21:11] VITALS: BP 138/80; PULSE 76; RESP 16; O2SAT 96
--- NOTE | 2023-05-18 21:12 | MHC.EDTECH ---
Patient came in by ambulance,changed into hospital attire,placed on the site monitor,vitals taken,rectal temp 99.3,EKG taken per order and signed by provider,labs,blood cultures,and a urine were obtained and sent to lab.Call thomas in reach
[2023-05-18 21:13] LABS: Basophils Absolute Auto 0.1 X10*3/uL (0.0-0.2); Basophils Percent Auto 0.8 % (0-2); Eosinophils Absolute Auto 0.7 X10*3/uL (0.0-0.4); Eosinophils Percent Auto 7.3 % (0-4); Hematocrit 43.3 % (42.0-52.0); Hemoglobin 14.3 g/dl (14.0-18.0); Imm Gran Abs Auto 0.02 X10*3/uL (0.00-0.03); Imm Gran Pct Auto 0.2 % (0.0-0.4); Lymphocytes Absolute Auto 3.6 X10*3/uL (1.2-4.9); Lymphocytes Percent Auto 37.1 % (20-40); Mean Platelet Volume 9.6 fL (9.4-12.4); Monocytes Absolute Auto 0.9 X10*3/uL (0.1-1.2); Monocytes Percent Auto 9.2 % (2-11); Neutrophils Absolute Auto 4.4 x10*3/uL (2.0-8.3); Neutrophils Percent Auto 45.4 % (45-73); Platelet Count 316 X10*3/uL (160-400); Red Blood Count 4.76 X10*6/uL (4.60-5.80); Red Cell Distribution Width 14.9 % (11.0-16.0); White Blood Count 9.6 X10*3/uL (4.8-10.8)
--- NOTE | 2023-05-18 21:14 | ED.GENADULT ---
HPI - General Adult General Chief complaint: General Medical Stated complaint: sepsis Time Seen by Provider: 05/18/23 20:43 History of Present Illness HPI narrative: Patient is an 88-year-old male with a history of urinary tract infection. History of respiratory failure. At the detention was having more change in his mental status. There was no fever detected. This is very similar to previous bouts of urinary tract infection. Currently patient is not on any antibiotics. He was on cefuroxime. Patient has no specific complaints. Related Data Home Medications Medication Instructions Recorded Confirmed sertraline 50 mg tablet 50 mg PO DAILY 10/21/20 04/26/23 acetaminophen 325 mg tablet 650 mg PO TID 04/17/22 04/26/23 aspirin 81 mg tablet,delayed 81 mg PO DAILY 04/17/22 04/26/23 release docusate sodium 100 mg capsule 100 mg PO BID@0900,1700 04/17/22 04/26/23 folic acid 1 mg tablet 1 mg PO DAILY 04/17/22 04/26/23 polyethylene glycol 3350 17 gram 17 g PO Q48H 04/17/22 04/26/23 oral powder packet tamsulosin 0.4 mg capsule 0.4 mg PO BEDTIME 04/17/22 04/26/23 finasteride 5 mg tablet 5 mg PO DAILY 09/22/22 04/26/23 simvastatin 20 mg tablet 20 mg PO BEDTIME 09/22/22 04/26/23 amlodipine 5 mg tablet 5 mg PO DAILY 01/20/23 04/26/23 furosemide 40 mg tablet 20 mg PO DAILY 01/20/23 04/26/23 lisinopril 40 mg tablet 40 mg PO DAILY 01/20/23 04/26/23 potassium chloride 20 mEq 20 meq PO DAILY 01/20/23 04/26/23 tablet,extended release ascorbic acid (vitamin C) 1,000 mg 1 g PO DAILY 04/26/23 04/26/23 tablet bisacodyl 10 mg rectal suppository 10 mg OK DAILY PRN Constipation 04/26/23 04/26/23 lidocaine 4 % topical patch 1 patch topical DAILY PRN shoulder 04/26/23 04/26/23 pain methenamine hippurate 1 gram tablet 1 g PO BID 04/26/23 04/26/23 sennosides 8.6 mg tablet (senna) 8.6 mg PO BEDTIME PRN Constipation 04/26/23 04/26/23 sertraline 25 mg tablet 25 mg PO DAILY 04/26/23 04/26/23 sodium phosphates 19 gram-7 118 ml OK DAILY PRN Constipation 04/26/23 04/26/23 gram/118 mL enema (Fleet Enema) tramadol 50 mg tablet 50 mg PO BEDTIME 04/26/23 04/26/23 Previous Rx's Medication Instructions Recorded clonidine HCl 0.2 mg tablet 0.2 mg PO BID #60 tabs 01/26/23 cefuroxime axetil 500 mg tablet 500 mg PO BID #6 tabs 04/29/23 cefuroxime axetil 500 mg tablet 500 mg PO BID uti #14 tabs 05/18/23 Allergies Allergy/AdvReac Type Severity Reaction Status Date / Time terazosin Allergy Unknown Unknown Verified 04/26/23 05:59 Review of Systems Review of Systems: Unable to obtain review of systems secondary patient's condition PMFSH Past Medical History Attestation statement: The following information was validated with the patient. Medical History Chronic atrial fibrillation with RVR Unspecified macular degeneration Primary osteoarthritis, left shoulder Pain in left shoulder Mild cognitive impairment of uncertain or unknown etiology Localized edema Edema, unspecified Feeling of incomplete bladder emptying Personal history of urinary (tract) infections Personal history of COVID-19 Squamous cell carcinoma of skin of scalp and neck Alcohol abuse, uncomplicated Bilateral primary osteoarthritis of knee Major depressive disorder, single episode, unspecified Dementia without behavioral disturbance Alzheimer's disease with late onset Chronic atrial fibrillation BPH (benign prostatic hyperplasia) HTN (hypertension) HLD (hyperlipidemia) Family History Family History Father No problems noted. Mother No problems noted. Social History 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 Housing[facility] Housing Other:: [facility] Unable to assess alcohol history related to: Unknown Alcohol intake: former Patient Tobacco Use Status: Never used Tobacco Advance Directives: Yes Advance Directives on File: Yes Advance Directives Date on File: 12/10/22 service: Yes Physical Exam ED Vital Signs: Vital Signs - 24 hr 04/02/24 20:48 05/18/23 21:11 Temperature 99.3 F Pulse Rate 93 76 Respiratory Rate 18 16 Blood Pressure 172/86 H 138/80 Pulse Oximetry 99 96 Oxygen Delivery Method Room Air Room Air BMI result Body Mass Index 33.1 Appearance: Alert. Oriented X3. No acute distress. Eyes: Pupils equal, round and reactive to light. ENT: Pharynx normal. Neck: Normal inspection. Neck supple. No lymph nodes noted. No crepitus CVS: Normal heart rate and rhythm. Pulses normal. Normal S1 and S2 Respiratory: No respiratory distress. Breath sounds normal. No Wheezing. No rales Abdomen: Soft and nontender. No rigidity. No distention. good BS x4 Skin: Skin warm and dry. Normal skin color. Normal skin turgor. Extremities: No lower extremity edema. Neurovascular intact to all extremities. No Lacerations. No Rash Neuro: Oriented X 3. No motor deficit. No sensory deficit. Moving all extermities. No slurred speech Medical Decision Making Medical Decision Making [facility] Narrative: Patient's urine showed a question chronic colonization. Patient is awake alert answering question. He is oriented to self and to place. He thinks it is 2025 which is very close. He has no complaints. CT scan of the head was grossly negative for any acute evidence of bleed or fracture. My interpretation patient's chest x-ray showed no focal infiltrate. Patient's white count is normal. Lactate is normal. Patient's electrolytes showed a normal BUN and creatinine. Troponin is normal. Patient's flu RSV COVID were all negative. Will nevertheless give 1 dose of Rocephin for the possible UTI. Patient's previous culture result was reviewed. Will start patient on cefuroxime on an outpatient basis for 7 days. Currently in stable condition Attempted to contact patient's next of kin including patient's grandson patient's son and another contact that is listed. There was no one answered. Patient to be discharged back to the [facility]. Differential Diagnosis Differential Diagnoses: The differential diagnosis associated with the presentation includes Urinary tract infection, flu RSV COVID, intracranial bleed Admission/Observation Consideration of admission/observation: Escalation of care including admission/observation considered Lab Data [facility] Lab Attestation statement: I reviewed the patient's lab results. 05/18/23 21:02 05/18/23 21:02 Labs: Lab Results 05/18/23 05/18/23 05/18/23 Range/Units 21:00 21:02 21:03 WBC 9.6 (4.8-10.8) X10*3/uL RBC 4.76 (4.60-5.80) X10*6/uL Hgb 14.3 (14.0-18.0) g/dl Hct 43.3 (42.0-52.0) % MCV 91.0 (80.0-98.0) fL MCH 30.0 (27.0-33.0) pg MCHC 33.0 (31.0-36.0) g/dl RDW 14.9 (11.0-16.0) % Plt Count 316 D (160-400) X10*3/uL MPV 9.6 (9.4-12.4) fL Immature Gran % (Auto) 0.2 (0.0-0.4) % Neut % (Auto) 45.4 (45-73) % Lymph % (Auto) 37.1 (20-40) % [place] % (Auto) 9.2 (2-11) % Eos % (Auto) 7.3 H (0-4) % Baso % (Auto) 0.8 (0-2) % Lymph # (Auto) 3.6 (1.2-4.9) X10*3/uL [place] # (Auto) 0.9 (0.1-1.2) X10*3/uL Eos # (Auto) 0.7 H (0.0-0.4) X10*3/uL Baso # (Auto) 0.1 (0.0-0.2) X10*3/uL Abs Immat Gran (auto) 0.02 (0.00-0.03) X10*3/uL Absolute Neuts (auto) 4.4 (2.0-8.3) x10*3/uL Absolute Nucleated RBC 0.000 (0.0-0.012) X10*3/uL Nucleated RBC % (auto) 0.0 (0.0-0.2) /100WBC PT 12.8 (11.1-13.3) SEC INR 1.1 (0.9-1.1) Sodium 134 L (135-145) mmol/L Potassium 3.9 (3.3-5.1) mmol/L Chloride 104 (96-108) mmol/L Carbon Dioxide 25 (22-29) mmol/L Anion Gap 9 L (12-20) BUN 20 H (9-16) mg/dL Creatinine 0.80 (0.5-1.4) mg/dL Estim Creat Clear Calc 92.6 Estimated GFR > 60 Random Glucose 97 (60-115) mg/dL Lactic Acid 1.2 (0.5-2.0) mmol/L Calcium 9.2 (8.4-10.2) mg/dL Magnesium 1.8 (1.6-2.6) mg/dL Total Bilirubin 0.4 (0.0-1.0) mg/dL Direct Bilirubin 0.2 (0.0-0.5) mg/dL AST 16 (5-37) U/L ALT 15 (0-40) U/L Alkaline Phosphatase 89 (39-117) U/L Troponin I High Sens 4.1 D (<3.5-35.0) ng/L Total Protein 7.4 (6.5-8.0) g/dL Albumin 3.6 (3.5-5.0) g/dL Urine Color Urine Appearance Urine pH (5.0-9.0) Ur Specific [place] (1.005-1.025) Urine Protein (Neg-Trace) mg/dL Urine Glucose (UA) (Negative) mg/dL Urine Ketones (Negative) mg/dL Urine Blood (Negative) Urine Nitrite (Negative) Ur Leukocyte Esterase (Negative) Urine RBC (0-2) /HPF Urine WBC (0-5) /HPF Ur Squamous Epith Cells (0-2) /HPF Urine Bacteria (None Seen) Hyaline Casts (0-2) /LPF Influenza Type A (PCR) NEGATIVE (Negative) Influenza Type B (PCR) NEGATIVE (Negative) RSV RNA Qual (PCR) NEGATIVE (Negative) SARS-CoV-2 RNA (RT-PCR) NEGATIVE (Negative) 05/18/23 Range/Units 21:16 WBC (4.8-10.8) X10*3/uL RBC (4.60-5.80) X10*6/uL Hgb (14.0-18.0) g/dl Hct (42.0-52.0) % MCV (80.0-98.0) fL MCH (27.0-33.0) pg MCHC (31.0-36.0) g/dl RDW (11.0-16.0) % Plt Count (160-400) X10*3/uL MPV (9.4-12.4) fL Immature Gran % (Auto) (0.0-0.4) % Neut % (Auto) (45-73) % Lymph % (Auto) (20-40) % [place] % (Auto) (2-11) % Eos % (Auto) (0-4) % Baso % (Auto) (0-2) % Lymph # (Auto) (1.2-4.9) X10*3/uL [place] # (Auto) (0.1-1.2) X10*3/uL Eos # (Auto) (0.0-0.4) X10*3/uL Baso # (Auto) (0.0-0.2) X10*3/uL Abs Immat Gran (auto) (0.00-0.03) X10*3/uL Absolute Neuts (auto) (2.0-8.3) x10*3/uL Absolute Nucleated RBC (0.0-0.012) X10*3/uL Nucleated RBC % (auto) (0.0-0.2) /100WBC PT (11.1-13.3) SEC INR (0.9-1.1) Sodium (135-145) mmol/L Potassium (3.3-5.1) mmol/L Chloride (96-108) mmol/L Carbon Dioxide (22-29) mmol/L Anion Gap (12-20) BUN (9-16) mg/dL Creatinine (0.5-1.4) mg/dL Estim Creat Clear Calc Estimated GFR Random Glucose (60-115) mg/dL Lactic Acid (0.5-2.0) mmol/L Calcium (8.4-10.2) mg/dL Magnesium (1.6-2.6) mg/dL Total Bilirubin (0.0-1.0) mg/dL Direct Bilirubin (0.0-0.5) mg/dL AST (5-37) U/L ALT (0-40) U/L Alkaline Phosphatase (39-117) U/L Troponin I High Sens (<3.5-35.0) ng/L Total Protein (6.5-8.0) g/dL Albumin (3.5-5.0) g/dL Urine Color Yellow Urine Appearance Cloudy Urine pH 5.5 (5.0-9.0) Ur Specific [place] 1.015 (1.005-1.025) Urine Protein Negative (Neg-Trace) mg/dL Urine Glucose (UA) Negative (Negative) mg/dL Urine Ketones Negative (Negative) mg/dL Urine Blood Negative (Negative) Urine Nitrite Negative (Negative) Ur Leukocyte Esterase Moderate (2+) H (Negative) Urine RBC 0-2 (0-2) /HPF Urine WBC >50 H (0-5) /HPF Ur Squamous Epith Cells 3-5 (0-2) /HPF Urine Bacteria None Seen (None Seen) Hyaline Casts 0-2 (0-2) /LPF Influenza Type A (PCR) (Negative) Influenza Type B (PCR) (Negative) RSV RNA Qual (PCR) (Negative) SARS-CoV-2 RNA (RT-PCR) (Negative) Independent Interpretation I performed an independent interpretation of an: EKG (AFib heart rate is 90 QRS QTC within normal limits is no ST segment elevation), Plain X-Ray (Grossly negative) and CT Scan (Negative for any acute evidence of bleeding) Radiology Impression Discussion of test interpretation with radiology: I have reviewed the radiologist's reading. External Record Review [facility] record reviewed Prescription Management I considered prescription management with: Antibiotic Chronic Conditions History of dementia history of UTI Social Determinants Patient?s care significantly limited by Social Determinants of Health including: Problems related to primary support group Discharge Plan Discharge Clinical Impression: Acute UTI Patient Disposition: Home, Self-Care Instructions: Urinary Tract Infection in Men (DC) Prescriptions: New cefuroxime axetil 500 mg tablet 500 mg PO BID Qty: 14 0RF No Action sertraline 50 mg Tablet 50 mg PO DAILY ascorbic acid (vitamin C) 1,000 mg Tablet 1 g PO DAILY lidocaine 4 % Adhesive Patch,Medicated 1 patch TOPICAL DAILY PRN (Reason: shoulder pain) Rx Instructions: left shoulder, on 12 hours, off 12 hours tramadol 50 mg Tablet 50 mg PO BEDTIME methenamine hippurate 1 gram Tablet 1 g PO BID sertraline 25 mg Tablet 25 mg PO DAILY sennosides [senna] 8.6 mg Tablet 8.6 mg PO BEDTIME PRN (Reason: Constipation) bisacodyl 10 mg Suppository 10 mg OK DAILY PRN (Reason: Constipation) Rx Instructions: for no BM in 3 days and soft stool in rectum Fleet Enema 19-7 gram/118 mL Enema 118 ml OK DAILY PRN (Reason: Constipation) Rx Instructions: for no BM in 3 days cefuroxime axetil 500 mg tablet 500 mg PO BID Qty: 6 0RF furosemide 40 mg tablet 20 mg PO DAILY amlodipine 5 mg tablet 5 mg PO DAILY Rx Instructions: hold for SBP below 130 lisinopril 40 mg tablet 40 mg PO DAILY potassium chloride 20 mEq Tablet Extended Release 20 meq PO DAILY clonidine HCl 0.2 mg Tablet 0.2 mg PO BID Qty: 60 0RF Protocol: Hold for SBP< HOLD for SBP < : 90 Rx Instructions: hold for SBP below 120 acetaminophen 325 mg tablet 650 mg PO TID aspirin 81 mg tablet,delayed release (DR/EC) 81 mg PO DAILY docusate sodium 100 mg capsule 100 mg PO BID@0900,1700 folic acid 1 mg tablet 1 mg PO DAILY polyethylene glycol 3350 17 gram powder in packet 17 g PO Q48H tamsulosin 0.4 mg capsule 0.4 mg PO BEDTIME finasteride 5 mg tablet 5 mg PO DAILY simvastatin 20 mg tablet 20 mg PO BEDTIME Referrals: Physician,Unknown J [Primary Care Provider] - 05/20/23
[2023-05-18 21:19] LABS: INTERNATIONAL NORM RATIO 1.1 (0.9-1.1); Prothrombin Time 12.8 SEC (11.1-13.3)
--- NOTE | 2023-05-18 21:19 | MHC.EDTECH ---
Belongings list completed and copy placed in chart.
[2023-05-18 21:21] LABS: Lactic Acid 1.2 mmol/L (0.5-2.0)
[2023-05-18 21:25] LABS: Alanine Aminotransferase 15 U/L (0-40); Albumin Level 3.6 g/dL (3.5-5.0); Alkaline Phosphatase 89 U/L (39-117); Anion Gap 9 (12-20); Aspartate Amino Transferase 16 U/L (5-37); Bilirubin Direct 0.2 mg/dL (0.0-0.5); Bilirubin Total 0.4 mg/dL (0.0-1.0); Blood Urea Nitrogen 20 mg/dL (9-16); Calcium 9.2 mg/dL (8.4-10.2); Carbon Dioxide 25 mmol/L (22-29); Chloride 104 mmol/L (96-108); Creatinine Clr Calc Pharmacy 92.6; Estimated Glomerular Filt Rate > 60; Glucose Random 97 mg/dL (60-115); Magnesium 1.8 mg/dL (1.6-2.6); Potassium 3.9 mmol/L (3.3-5.1); Sodium 134 mmol/L (135-145); Total Protein 7.4 g/dL (6.5-8.0)
[2023-05-18 21:28] LABS: Appearance Urine Cloudy; Color Urine Yellow; Glucose Urine UA Negative (Negative); Leukocyte Esterase Urine Moderate (2+) (Negative); Nitrite Urine Negative (Negative); PH 5.5 (5.0-9.0); Specific Gravity - Urine 1.015 (1.005-1.025); UMIC TRIGGER UACC YES; Urine Blood Negative (Negative); Urine Ketones Negative (Negative); Urine Protein Negative (Neg-Trace)
[2023-05-18 21:32] LABS: Troponin-I High Sensitivity 4.1 ng/L (<3.5-35.0)
[2023-05-18 21:40] LABS: Influenza A PCR NEGATIVE (Negative); Influenza B PCR NEGATIVE (Negative); Resp Syncy Virus RNA Qual PCR NEGATIVE (Negative); SARS COV2 PCR INHOUSE NEGATIVE (Negative)
[2023-05-18 22:00] VITALS: BP 140/81; PULSE 78; RESP 16; TEMP 37.2; O2SAT 98
[2023-05-18 22:19] LABS: Bacteria Urine None Seen (None Seen); Hyaline Casts Urine 0-2 /LPF (0-2); RBC Urine 0-2 /HPF (0-2); UACC Culture Trigger YES; WBC Urine >50 /HPF (0-5)
[2023-05-18] MEDS: cefTRIAXone sodium 1 GM in 0.9 % Sodium Chloride 50 ML IV (23:30)
[2023-05-18 23:42] VITALS: BP 143/87; PULSE 81; RESP 16; TEMP 36.4; O2SAT 98
--- NOTE | 2023-05-18 23:43 | MHC.EDTECH ---
Hourly rounds and vitals completed,patient is resting comfortably,awaiting ambulance at this time
--- NOTE | 2023-05-18 23:49 | MHC.EDTECH ---
CALL OUT TO [facility] AT 2340 TO BOOK TRANSPORT FOR PT BACK TO SNF, ESTIMATED ETA GIVEN WAS 0015
[2023-05-19 07:30] VITALS: BP 147/63; PULSE 83; RESP 18; TEMP 37.1; O2SAT 95
== END 2023-05-19 | disposition home or self-care (01) ==
PROVIDERS: Emergency Provider Emergency Medicine Emergency Medical Services
DX: N39.0 Urinary tract infection, site not specified (principal); I10 Essential (primary) hypertension; G30.1 Alzheimer's disease with late onset; F02.80 Dementia in other diseases classified elsewhere, unspecified severity, without behavioral disturbance, psychotic disturbance, mood disturbance, and anxiety; I48.20 Chronic atrial fibrillation, unspecified; Z03.818 Encounter for observation for suspected exposure to other biological agents ruled out
CPT/HCPCS: 0241U; 70450; 71045; 80053; 81001; 82248; 83605; 83735; 84484; 85025; 85610; 87040; 87086; 93005; 96374; 99284; J0696

== ENCOUNTER → 2023-05-18 20:48 | Outpatient (BNV) | payer OTHER, SELFPAY | PROVIDERS: Emergency Provider Emergency Medicine Emergency Medical Services; Visit Provider Internal Medicine Cardiovascular Disease | DX: R94.31 Abnormal electrocardiogram [ECG] [EKG] (principal) | CPT/HCPCS: 93010 ==

== ENCOUNTER 2023-05-26 07:17 | Outpatient (REF) | payer MEDICARE, MEDICAID, SELFPAY ==
[2023-05-26 07:58] LABS: Cholesterol 114 mg/dL (<200); HDL Cholesterol 31 mg/dL (>40); LDL Cholesterol Calculated 63 mg/dL (<100); Triglycerides 101 mg/dL (<150)
[2023-05-26 08:10] LABS: Prostate Specific Antigen < 0.10 ng/mL (<0.05-4.0)
[2023-05-26 08:12] LABS: Thyroid Stimulating Hormone 2.44 uIU/mL (0.32-4.0)
== END 2023-05-26 07:18 | disposition home or self-care (01) ==
LOC: HO.HSH3W 07:17
PROVIDERS: Visit Provider Nurse Practitioner
DX: Z12.5 Encounter for screening for malignant neoplasm of prostate (principal); Z13.6 Encounter for screening for cardiovascular disorders; I48.20 Chronic atrial fibrillation, unspecified; N40.0 Benign prostatic hyperplasia without lower urinary tract symptoms
CPT/HCPCS: 36415; 80061; 84153; 84443

== ENCOUNTER → 2023-06-04 11:06 | Outpatient (REF) | payer MEDICARE, MEDICAID, SELFPAY ==
--- NOTE | ~2023-06-04 | NM_ITS ---
EXAMINATION: RENAL DYNAMIC IMAGING STUDY CLINICAL INFORMATION: Hydronephrosis. COMPARISON: No previous radionuclide renal scan or other relevant studies are available for comparison. TECHNIQUE: Serial gamma scintillation camera images were obtained over the posterior trunk during the initial transit and subsequent distribution of a bolus intravenous injection of 10 mCi Tc-99m (Sn)DTPA. FINDINGS: Initial rapid sequence images show prompt and normal-appearing low to the left kidney, but moderately diminished flow to the right kidney. Subsequent sequential static images obtained up to 30 minutes show good concentration in the left kidney but moderately diminished concentration in the right kidney. The right kidney appears slightly smaller than the left. There is evidence of excretory function bilaterally by 5 minutes post injection. The urinary bladder is initially visualized at approximately 10 minutes post injection. At 30 minutes postinjection there is good visualization of activity in the urinary bladder. At this time there is moderate retention in the right renal collecting system predominantly in the calyces which appear dilated. The right renal pelvis also appears dilated. There is only minimal retention in the left renal collecting system, predominantly in the left renal pelvis which appears mildly dilated. As the study continues there is good clearance of activity from the left renal collecting system but only minimal washout on the right. At the end of the study, terminated at 70 minutes post injection a full urinary bladder is visualized and there is moderate to marked retention in the right renal collecting system but only minimal collection on the left, with almost complete clearance of activity from the left renal collecting system. There is faint visualization of the right ureter. The relative function of the two kidneys based on the 2-3 minute images are: Left 71% and right 29%. NM/NM renal flow wo pharm int IMPRESSION: LEFT KIDNEY: Normal perfusion and function. Minimal dilatation of the left renal pelvis may be present but no outflow obstruction is present. RIGHT KIDNEY: Moderately impaired perfusion and function. Moderate hydronephrosis and high-grade and near-complete partial outflow obstruction. The study was requested without Lasix administration, and therefore the severity of the outflow obstruction on the right cannot be fully evaluated. :
== END ==
LOC: HO.NUCMED 11:06
PROVIDERS: Visit Provider Nurse Practitioner Acute Care
DX: N13.30 Unspecified hydronephrosis (principal)
CPT/HCPCS: 78701; A9539

== ENCOUNTER 2023-06-23 08:52 | Outpatient (AMB) | payer MEDICARE, MEDICAID, SELFPAY ==
--- NOTE | 2023-06-23 09:08 | HO.NEPHOV ---
Vital Signs 06/23/23 09:09 Height 6 ft 3 in BMI Reason not done Patient refused/unable BP 112/70 Blood Pressure Location Lt brachial Position Sitting Pulse 76 Pulse Source Pulse Oximeter Pulse Oximetry (%) 95 Oxygen Delivery Method Room Air Intake Visit Reasons: Hydronephrosis/Stretcher Pt/ Confirmed Allergies terazosin Allergy (Unknown, Verified 06/23/23 09:10) Unknown HPI Comments Details: 88 year old male with history of chronic atrial fibrillation not on AC, macular degeneration, hx alcohol use disorder, alzheimers disease, MDD, HTN, HLD, BPH, s/p cystoscopy 04/20 and admitted on 04/26/23 for UTI Nuclear scan revealed Right Hydronephrosis Creatinine is stable around 0.8 mg/dL [facility] Medical History (Updated 06/23/23 @ 09:24 by Fernie Esteban MD) Chronic atrial fibrillation with RVR Unspecified macular degeneration Primary osteoarthritis, left shoulder Pain in left shoulder Mild cognitive impairment of uncertain or unknown etiology Localized edema Edema, unspecified Feeling of incomplete bladder emptying Personal history of urinary (tract) infections Personal history of COVID-19 Squamous cell carcinoma of skin of scalp and neck Alcohol abuse, uncomplicated Bilateral primary osteoarthritis of knee Major depressive disorder, single episode, unspecified Dementia without behavioral disturbance Alzheimer's disease with late onset Chronic atrial fibrillation BPH (benign prostatic hyperplasia) HTN (hypertension) HLD (hyperlipidemia) Family History Father No problems noted. Mother No problems noted. 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 Housing: Residential Housing Other:: [facility] Unable to assess alcohol history related to: Unknown Alcohol intake: never Patient Tobacco Use Status: Never used Tobacco Advance Directives Date on File: 12/10/22 service: Yes Physical Exam Vital Signs: Last Vital Signs Pulse 76 06/23/23 09:09 BP 112/70 06/23/23 09:09 Pulse Ox 95 06/23/23 09:09 Oxygen Delivery Method Room Air 06/23/23 09:09 Neck Neck: Yes supple Resp Auscultation: clear to auscultation bilaterally Cardio Palpation: no palpable S3 Heart sounds: no rubs GI Palpation (GI): Soft to palpation Auscultation: normal bowel sounds Neuro Motor exam (neuro): no asterixis Results Reviewed Results Reviewed: Nuclear Scan on 06/02/23 LEFT KIDNEY: Normal perfusion and function. Minimal dilatation of the left renal pelvis may be present but no outflow obstruction is present. RIGHT KIDNEY: Moderately impaired perfusion and function. Moderate hydronephrosis and high-grade and near-complete partial outflow obstruction. The study was requested without Lasix administration, and therefore the severity of the outflow obstruction on the right cannot be fully evaluated. Nephrology Results: Hgb 14.3 g/dl (14.0-18.0) 05/18/23 WBC 9.6 X10*3/uL (4.8-10.8) 05/18/23 Plt Count 316 X10*3/uL (160-400) 05/18/23 Sodium 134 mmol/L (135-145) L 05/18/23 Potassium 3.9 mmol/L (3.3-5.1) 05/18/23 Chloride 104 mmol/L (96-108) 05/18/23 Carbon Dioxide 25 mmol/L (22-29) 05/18/23 BUN 20 mg/dL (9-16) H 05/18/23 Creatinine 0.80 mg/dL (0.5-1.4) 05/18/23 Calcium 9.2 mg/dL (8.4-10.2) 05/18/23 Urine Protein Negative mg/dL (Neg-Trace) 05/18/23 Assessment & Plan Assessment & Plan (1) Hydronephrosis: Code(s): N13.30 - Unspecified hydronephrosis Category: Medical (2) HTN (hypertension): Code(s): I10 - Essential (primary) hypertension Category: Medical Plan Elderly man with HTN And right hydronephrosis and normal renal function s/p Cystoscopy in April Will refer back to urology for management of hydronephrosis BP is well controlled No changes made to medications Orders: Referrals Urology Referral N13.30 - Unspecified hydronephrosis Coding Level of Care Code New Pt Level 4 (47347) Diagnoses Hydronephrosis N13.30 HTN (hypertension) I10
[2023-06-23 09:09] VITALS: BP 112/70; PULSE 76; O2SAT 95
== END 2023-06-23 09:34 | disposition home or self-care (01) ==
LOC: HO.HKA 08:52
PROVIDERS: Visit Provider Internal Medicine Hypertension Specialist
DX: N13.30 Unspecified hydronephrosis (principal); I10 Essential (primary) hypertension
CPT/HCPCS: 99204

== ENCOUNTER → 2023-06-23 08:52 | Outpatient (BNVA) | payer MEDICARE, MEDICAID, SELFPAY | PROVIDERS: Visit Provider Internal Medicine Hypertension Specialist | DX: N13.30 Unspecified hydronephrosis (principal); I10 Essential (primary) hypertension | CPT/HCPCS: 99202 ==

== ENCOUNTER 2023-07-14 13:07 | Outpatient (REF) | payer MEDICARE, MEDICAID, SELFPAY ==
[2023-07-14 13:17] LABS: MANUAL DIFF FLAG NO
[2023-07-14 13:21] LABS: Basophils Absolute Auto 0.1 X10*3/uL (0.0-0.2); Basophils Percent Auto 0.6 % (0-2); Eosinophils Absolute Auto 0.5 X10*3/uL (0.0-0.4); Eosinophils Percent Auto 5.4 % (0-4); Hematocrit 43.2 % (42.0-52.0); Hemoglobin 14.2 g/dl (14.0-18.0); Imm Gran Abs Auto 0.02 X10*3/uL (0.00-0.03); Imm Gran Pct Auto 0.2 % (0.0-0.4); Lymphocytes Absolute Auto 2.1 X10*3/uL (1.2-4.9); Lymphocytes Percent Auto 21.9 % (20-40); Mean Corpuscular HGB Conc 32.9 g/dl (31.0-36.0); Mean Corpuscular Hemoglobin 30.1 pg (27.0-33.0); Mean Corpuscular Volume 91.5 fL (80.0-98.0); Mean Platelet Volume 9.8 fL (9.4-12.4); Monocytes Absolute Auto 0.7 X10*3/uL (0.1-1.2); Monocytes Percent Auto 6.9 % (2-11); Neutrophils Absolute Auto 6.2 x10*3/uL (2.0-8.3); Platelet Count 279 X10*3/uL (160-400); Red Blood Count 4.72 X10*6/uL (4.60-5.80); Red Cell Distribution Width 14.6 % (11.0-16.0); White Blood Count 9.5 X10*3/uL (4.8-10.8)
[2023-07-14 13:34] LABS: Anion Gap 12 (12-20); Blood Urea Nitrogen 21 mg/dL (9-16); Calcium 9.1 mg/dL (8.4-10.2); Carbon Dioxide 25 mmol/L (22-29); Chloride 104 mmol/L (96-108); Estimated Glomerular Filt Rate > 60; Glucose Random 116 mg/dL (60-115); Potassium 4.3 mmol/L (3.3-5.1); Sodium 137 mmol/L (135-145)
== END 2023-07-14 13:08 | disposition home or self-care (01) ==
LOC: HO.HSH3W 13:07
PROVIDERS: Visit Provider Nurse Practitioner Acute Care
DX: F03.90 Unspecified dementia, unspecified severity, without behavioral disturbance, psychotic disturbance, mood disturbance, and anxiety (principal); N39.0 Urinary tract infection, site not specified
CPT/HCPCS: 36415; 80048; 85025

== ENCOUNTER 2023-08-16 11:00 | Outpatient (AMB) | payer MEDICARE, MEDICAID, SELFPAY ==
--- NOTE | 2023-08-16 11:02 | MHC.OFFVIS ---
Intake Visit Reasons: Unspecified hydronephrosis Intake Note: Patient is present for unspecified hydronephrosis Urology Medication:tamsulosin,finasteride Antibiotic Allergy:none Blood Thinner:aspirin PVR: 250ML Regulatory Compliance Officer Required: No Allergies terazosin Allergy (Unknown, Verified 08/16/23 11:04) Unknown HPI Comments Details: 88 year old male with history of chronic atrial fibrillation not on AC, macular degeneration, hx alcohol use disorder, alzheimers disease, MDD, HTN, HLD, BPH, s/p cystoscopy 04/22/23-Bladder wall thickening; and admitted on 04/26/23 for UTI Nuclear scan revealed Right Hydronephrosis Creatinine is stable around 0.8 mg/dL Plan- CT abd/pelvis without IV contrast evaluate for distal obstructive stone cont proscar, flomax PFSH Medical History Chronic atrial fibrillation with RVR Unspecified macular degeneration Primary osteoarthritis, left shoulder Pain in left shoulder Mild cognitive impairment of uncertain or unknown etiology Localized edema Edema, unspecified Feeling of incomplete bladder emptying Personal history of urinary (tract) infections Personal history of COVID-19 Squamous cell carcinoma of skin of scalp and neck Alcohol abuse, uncomplicated Bilateral primary osteoarthritis of knee Major depressive disorder, single episode, unspecified Dementia without behavioral disturbance Alzheimer's disease with late onset Chronic atrial fibrillation BPH (benign prostatic hyperplasia) HTN (hypertension) HLD (hyperlipidemia) Family History Father No problems noted. Mother No problems noted. 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 Housing: Alf Housing Other:: [facility] Unable to assess alcohol history related to: Unknown Alcohol intake: never Patient Tobacco Use Status: Never used Tobacco Advance Directives Date on File: 12/10/22 service: Yes Review of Systems Const All systems reviewed & are unremarkable except as noted in HPI and below Reports no additional complaints Eyes Reports no additional complaints ENT Reports no additional complaints Card Reports no additional complaints Resp Reports no additional complaints GI Reports no additional complaints Reports as per HPI Musc Reports no additional complaints Skin/Breast Reports system reviewed and no additional complaints, except as documented Neuro Reports no additional complaints Psych Reports no additional complaints Endo Reports no additional complaints Santosh/Lymph Reports no additional complaints Aller/Immun Reports no additional complaints Results AMB Urinalysis, Automated UA Leukoctes 15 Massimo/uL Last Edit by ANDREEA Stafford on 08/16/23 11:18 UA Nitrite Negative Last Edit by Micheal Morrison CCM on 08/16/23 11:18 UA Urobilinogen 0.2 mg/dL Last Edit by Micheal Morrison CCM on 08/16/23 11:18 UA Protein 0 mg/dL Last Edit by Micheal Morrison [facility] on 08/16/23 11:18 UA pH 6.0 Last Edit by Micheal Morrison [facility] on 08/16/23 11:18 UA Blood 0 Yayo/uL Last Edit by Micheal Morrison [facility] on 08/16/23 11:18 UA Specific [place] 1.015 Last Edit by Micheal Morrison CCM on 08/16/23 11:18 UA Ketone Negative Last Edit by Micheal Morrison CCM on 08/16/23 11:18 UA Bilirubin 0 mg/dL Last Edit by Micheal Morrison [facility] on 08/16/23 11:18 UA Glucose 0 mg/dL Last Edit by Micheal Morrison [facility] on 08/16/23 11:18 Results Reviewed Results Reviewed: Laboratory Last Values Urine pH (Auto) 6.0 08/16/23 11:18 Specific [place] (Auto) 1.015 08/16/23 11:18 Urine Protein (Auto) 0 mg/dL 08/16/23 11:18 Glucose (UA)(Auto) 0 mg/dL 08/16/23 11:18 Urine Ketones (Auto) Negative 08/16/23 11:18 Urine Blood (Auto) 0 Yayo/uL 08/16/23 11:18 Urine Nitrite (Auto) Negative 08/16/23 11:18 Urine Bilirubin (Auto) 0 mg/dL 08/16/23 11:18 Urine Urobilinogen (Auto) 0.2 mg/dL 08/16/23 11:18 Leukocyte Esterase (Auto) 15 Massimo/uL 08/16/23 11:18 Date of Service: 06/04/23 EXAMINATION: RENAL DYNAMIC IMAGING STUDY CLINICAL INFORMATION: Hydronephrosis. COMPARISON: No previous radionuclide renal scan or other relevant studies are available for comparison. TECHNIQUE: Serial gamma scintillation camera images were obtained over the posterior trunk during the initial transit and subsequent distribution of a bolus intravenous injection of 10 mCi Tc-99m (Sn)DTPA. FINDINGS: Initial rapid sequence images show prompt and normal-appearing low to the left kidney, but moderately diminished flow to the right kidney. Subsequent sequential static images obtained up to 30 minutes show good concentration in the left kidney but moderately diminished concentration in the right kidney. The right kidney appears slightly smaller than the left. There is evidence of excretory function bilaterally by 5 minutes post injection. The urinary bladder is initially visualized at approximately 10 minutes post injection. At 30 minutes postinjection there is good visualization of activity in the urinary bladder. At this time there is moderate retention in the right renal collecting system predominantly in the calyces which appear dilated. The right renal pelvis also appears dilated. There is only minimal retention in the left renal collecting system, predominantly in the left renal pelvis which appears mildly dilated. As the study continues there is good clearance of activity from the left renal collecting system but only minimal washout on the right. At the end of the study, terminated at 70 minutes post injection a full urinary bladder is visualized and there is moderate to marked retention in the right renal collecting system but only minimal collection on the left, with almost complete clearance of activity from the left renal collecting system. There is faint visualization of the right ureter. The relative function of the two kidneys based on the 2-3 minute images are: Left 71% and right 29%. IMPRESSION: LEFT KIDNEY: Normal perfusion and function. Minimal dilatation of the left renal pelvis may be present but no outflow obstruction is present. RIGHT KIDNEY: Moderately impaired perfusion and function. Moderate hydronephrosis and high-grade and near-complete partial outflow obstruction. The study was requested without Lasix administration, and therefore the severity of the outflow obstruction on the right cannot be fully evaluated. Assessment & Plan Assessment & Plan (1) Hydronephrosis: Code(s): N13.30 - Unspecified hydronephrosis Category: Medical (2) BPH loc w urin obs/LUTS: Code(s): N40.1 - Benign prostatic hyperplasia with lower urinary tract symptoms Category: Medical (3) Bladder wall thickening: Code(s): N32.89 - Other specified disorders of bladder Category: Medical Plan Nuclear scan revealed Right Hydronephrosis Creatinine is stable around 0.8 mg/dL Plan- CT abd/pelvis without IV contrast evaluate for distal obstructive stone cont proscar, flomax Orders: Orders CT abdomen pelvis wo IV con 08/16/23 N13.30 - Unspecified hydronephrosis AMB Urinalysis Automated 08/16/23 Z13.9 - Encounter for screening, unspecified Patient Instructions: The patient had an opportunity to ask questions regarding treatment plan. The patient expressed understanding and agreement with the above treatment plan. The patient is aware they should contact our office by phone for worsening of their current condition or the appearance of new symptoms. Compliance is encouraged with any medications and followup testing that is ordered. It is a privilege to be allowed the opportunity to participate in the urologic care of your patient. If you have any questions or concerns regarding treatment for the above conditions please do not hesitate to contact me. The office telephone contact is [phone]. This note is constructed in part using voice recognition software. While every effort has been made to ensure accuracy head stock operator errors may have been included. Yours sincerely, Star Orozco MD Coding Level of Care Code Est Pt Level 4 (96125) Diagnoses Hydronephrosis N13.30 BPH loc w urin obs/LUTS N40.1 Bladder wall thickening N32.89
== END 2023-08-16 12:00 | disposition home or self-care (01) ==
LOC: HO.HUSH 11:00
PROVIDERS: Visit Provider Urology
DX: N13.30 Unspecified hydronephrosis (principal); N40.1 Benign prostatic hyperplasia with lower urinary tract symptoms; N32.89 Other specified disorders of bladder
CPT/HCPCS: 99214

== ENCOUNTER → 2023-08-16 11:00 | Outpatient (BNVA) | payer MEDICARE, MEDICAID, SELFPAY | PROVIDERS: Visit Provider Urology | DX: N40.1 Benign prostatic hyperplasia with lower urinary tract symptoms (principal); N13.30 Unspecified hydronephrosis; N32.89 Other specified disorders of bladder | CPT/HCPCS: 81003; 99212 ==

== ENCOUNTER 2023-08-18 21:23 | Outpatient (REF) | payer MEDICAID, SELFPAY ==
[2023-08-18 21:50] LABS: Appearance Urine Clear; Color Urine Yellow; Glucose Urine UA Negative (Negative); Leukocyte Esterase Urine Moderate (2+) (Negative); Nitrite Urine Negative (Negative); PH 5.5 (5.0-9.0); Specific Gravity - Urine 1.015 (1.005-1.025); UMIC TRIGGER UACC YES; Urine Blood Trace (Negative); Urine Ketones Negative (Negative); Urine Protein Negative (Neg-Trace)
[2023-08-18 21:52] LABS: Bacteria Urine None Seen (None Seen); Hyaline Casts Urine 0-2 /LPF (0-2); RBC Urine 0-2 /HPF (0-2); UACC Culture Trigger YES; WBC Urine 21-50 /HPF (0-5)
== END 2023-08-18 21:24 | disposition home or self-care (01) ==
LOC: HO.HSH3W 21:23
PROVIDERS: Visit Provider Internal Medicine
DX: Z13.89 Encounter for screening for other disorder (principal)
CPT/HCPCS: 81001; 87086

== ENCOUNTER 2023-08-20 08:09 | Outpatient (REF) | payer MEDICAID, SELFPAY ==
[2023-08-20 08:13] LABS: MANUAL DIFF FLAG NO
[2023-08-20 09:32] LABS: Basophils Absolute Auto 0.1 X10*3/uL (0.0-0.2); Basophils Percent Auto 0.8 % (0-2); Eosinophils Absolute Auto 0.9 X10*3/uL (0.0-0.4); Eosinophils Percent Auto 10.7 % (0-4); Hematocrit 41.3 % (42.0-52.0); Hemoglobin 13.5 g/dl (14.0-18.0); Imm Gran Abs Auto 0.02 X10*3/uL (0.00-0.03); Imm Gran Pct Auto 0.2 % (0.0-0.4); Lymphocytes Absolute Auto 2.5 X10*3/uL (1.2-4.9); Lymphocytes Percent Auto 29.4 % (20-40); Mean Corpuscular HGB Conc 32.7 g/dl (31.0-36.0); Mean Corpuscular Hemoglobin 30.4 pg (27.0-33.0); Monocytes Absolute Auto 0.8 X10*3/uL (0.1-1.2); Monocytes Percent Auto 9.1 % (2-11); Neutrophils Absolute Auto 4.3 x10*3/uL (2.0-8.3); Neutrophils Percent Auto 49.8 % (45-73); Platelet Count 284 X10*3/uL (160-400); Red Blood Count 4.44 X10*6/uL (4.60-5.80); Red Cell Distribution Width 14.5 % (11.0-16.0); White Blood Count 8.6 X10*3/uL (4.8-10.8)
[2023-08-20 09:43] LABS: Anion Gap 12 (12-20); Blood Urea Nitrogen 23 mg/dL (9-16); Carbon Dioxide 26 mmol/L (22-29); Chloride 106 mmol/L (96-108); Estimated Glomerular Filt Rate > 60; Glucose Random 85 mg/dL (60-115); Potassium 3.9 mmol/L (3.3-5.1); Sodium 140 mmol/L (135-145)
[2023-08-20 10:49] LABS: Vitamin B12 352 pg/mL (200-900)
== END 2023-08-20 08:10 | disposition home or self-care (01) ==
LOC: HO.HSH3W 08:09
PROVIDERS: Visit Provider Nurse Practitioner
DX: R41.82 Altered mental status, unspecified (principal)
CPT/HCPCS: 36415; 80048; 82607; 85025